=== PATIENT | male | born 1945 | race Caucasian/White ===

== ENCOUNTER → 2019-11-11 09:25 | Outpatient (BNVA) | payer OTHER, SELFPAY | PROVIDERS: Family Provider Emergency Medicine Emergency Medical Services; PCP Family Medicine; Visit Provider Orthopaedic Surgery | DX: M25.562 Pain in left knee (principal); M17.0 Bilateral primary osteoarthritis of knee | CPT/HCPCS: 73560; 73565 ==

== ENCOUNTER 2019-12-02 02:10 | Inpatient (IN) | payer OTHER, MEDICARE, SELFPAY ==
[2019-12-02] VITALS (14 sets, daily range): BP systolic 169–216; BP diastolic 64–98; PULSE 52–88; RESP 16–18; TEMP 36.1–36.6; O2SAT 96–99; BMI 50.2
--- NOTE | 2019-12-02 02:22 | CTR_ITS ---
PROCEDURE INFORMATION: Exam: CT Abdomen And Pelvis Without Contrast Exam date and time: 12/02/2019 2:23 AM Age: 74 years old Clinical indication: Abdominal pain; Flank; Right; Prior surgery; Surgery type: Lt kidney removed, gastric sleeve; Patient HX: HX renal CA; Additional info: Flank/abdominal pain TECHNIQUE: Imaging protocol: Computed tomography of the abdomen and pelvis without contrast. Radiation optimization: All CT scans at this facility use at least one of these dose optimization techniques: automated exposure control; mA and/or kV adjustment per patient size (includes targeted exams where dose is matched to clinical indication); or iterative reconstruction. Total DLP: 1991.97 mGy-cm COMPARISON: CT abdomen pelvis wo con [id number] 03/28/2016 11:33 AM FINDINGS: Liver: Normal. No mass. Gallbladder and bile ducts: Normal. No calcified stones. No ductal dilation. Pancreas: Normal. No ductal dilation. Spleen: Normal. No splenomegaly. Adrenals: Normal. No mass. Kidneys and ureters: Status post right nephrectomy. Strandy opacities are seen in the left perinephric fascia possibly representing chronic scarring. However, active inflammation cannot be excluded. There is mild hydronephrosis and hydroureter seen on the left. There is a 1.8 mm calcifications seen at the level of the left ureterovesical junction compatible with a partially obstructing ureteral calculus. Stomach and bowel: There is a small hiatal hernia containing a small portion of the proximal stomach. The patient is status post a gastric sleeve procedure. Appendix: The appendix is not seen in today's examination. There are no inflammatory changes seen to suggest appendicitis. Intraperitoneal space: Unremarkable. No free air. No significant fluid collection. Vasculature: Calcifications are seen within the thoracic and abdominal aorta, iliac arteries and femoral arteries bilaterally and branches of the celiac and superior mesenteric arteries. Lymph nodes: Unremarkable. No enlarged lymph nodes. Bladder: Unremarkable as visualized. Reproductive: Unremarkable as visualized. Bones/joints: Unremarkable. No acute fracture. Soft tissues: Unremarkable. CT/CT kidney stone [id number] IMPRESSION: Partially obstructing 1.8 mm distal left ureteral calculus at the level of the ureterovesical junction. Probable inflammatory changes surrounding the left kidney. Radiation Dose CTDIVOL = (mGy): DLP = 1992.97 (mGy-cm)
--- NOTE | 2019-12-02 02:41 | ED_ITS ---
HPI - Abdominal Pain General: Chief Complaint: Abdominal Pain Stated Complaint: abd pain Time Seen by Provider: 12/02/19 02:20 History of Present Illness: HPI narrative: Tom is a nice 74-year-old male who comes in complaining of left flank pain. Patient states it feels similar to kidney stones he had in the past. Patient states he only has 1 kidney at this time. Pains been going on for most of the day but getting progressively worse. He denies any fevers or chills. He denies any nausea or vomiting. Associated Symptoms: Denies chills, coffee ground emesis, constipation, GI cramping, diarrhea, dysuria, fever(s), hematochezia, hematuria, hematemesis, melena, nausea, syncope and vomiting Review of Systems General: Reports: other (negative unless marked) Const: Denies: fever, chills, body aches, fatigue, malaise or diaphoresis Eyes: Denies: change in vision or blurry vision ENMT: Denies: throat pain, painful swallowing, hoarseness, ear pain, ear discharge, Change in hearing or nasal discharge Card: Denies: chest pain, palpitations, irregular heart rhythm, syncope, pre- syncope, shortness of breath on exertion or shortness of breath when lying down Resp: Denies: shortness of breath, productive cough, non-productive cough, wheezing, coughing up blood or chest congestion GI: Denies: abdominal pain, nausea, vomiting, vomiting blood, coffee grounds in vomit, diarrhea, constipation, cramping, blood in stool or black tarry stool : Reports: flank pain; Denies: difficulty urinating, painful urination, urinary frequency, urinary urgency, decreased urine ouput, urinary incontinence or blood in urine Musc: Denies: neck pain, back pain, extremity pain, extremity swelling, joint pain, joint swelling, joint warmth or joint stiffness Skin/Breast: Denies: rash, skin tenderness or yellow skin Neuro: Denies: headache, numbness in extremities, weakness in extremities, changes in sensation, lack of coordination, difficulty walking, dizziness, vertigo or confusion Endo: Denies: excessive thirst, tired all the time, cold intolerance, excessive sweating, flushing or hot flashes Tres/Lymph: Denies: easy bruising, easy bleeding, petechiae or enlarged lymph nodes All/Imm: Denies: hives, throat swelling, tongue swelling, facial swelling or acute wheezing PFSH ED PFSH: Medical History (Updated 12/02/19 @ 04:13 by Angie Mcdowell) Arteriosclerotic heart disease Colon polyps Degenerative arthritis of knee Diabetes mellitus Internal hemorrhoids Mixed hyperlipidemia Morbid obesity with body mass index (BMI) of 50.0 to 59.9 in adult Obesity Surgical History History of heart artery stent History of right nephrectomy Family History Father Myocardial infarction Social History Smoking and tobacco status: never smoked Alcohol intake: never Physical Exam Const: COMMON NORMALS: no apparent distress, oriented x3, no limitations, healthy appearing and well nourished EXAM LIMITATIONS: no altered mental status GENERAL APPEARANCE: cooperative, well kempt and well developed ORIENTATION/CONSCIOUSNESS: Yes awake HENMT: COMMON NORMALS: normocephalic, head/scalp atraumatic, hearing grossly normal bilaterally, external ears normal, EAC's normal, external nose normal and moist oral mucous membranes HEAD & SCALP: normal to inspection, normocephalic and atraumatic FACE & SINUS: normal facial exam and face symmetric NOSE: external nose normal and nares normal EXTERNAL EAR: Yes external ears normal EXTERNAL AUDITORY CANAL: EAC's normal MOUTH: oral and palatal mucosa normal and tongue normal Eye: COMMON NORMALS: PERRL, EOMs intact bilaterally, conjunctivae normal and no scleral icterus GENERAL EYE: normal appearance of both eyes and normal light reflex CONJUNCTIVA: Yes conjunctivae normal SCLERA: sclerae normal CORNEA: Yes corneas normal PUPIL: Yes PERRL DIRECT OPHTHALMOSCOPY: Yes normal light reflex Neck/C-Spine: COMMON NORMALS: full ROM, no lymphadenopathy, supple, no meningeal signs and no JVD GENERAL: Yes normal visual inspection and Yes trachea midline CERVICAL SPINE: Yes cervical ROM normal Chest: COMMONS NORMALS: inspection of chest normal and palpation of chest normal Resp: COMMON NORMALS: normal respiratory effort, no retractions, no use of accessory muscles and clear to auscultation bilaterally EFFORT & INSPECTION: Yes able to speak in complete sentences AUSCULTATION: clear to auscultation bilaterally Cardio: COMMON NORMALS: no JVD, regular rate, regular rhythm, S1 normal heart sound, S2 normal heart sound, no gallops, no clicks, no murmurs and no rub JUGULAR VENOUS DISTENTION: no JVD RATE: regular rate RHYTHM: regular rhythm HEART SOUNDS: S1 normal and S2 normal GI: COMMON NORMALS: soft to palpation, non-tender, no hepatosplenomegaly and no masses INSPECTION: Yes normal to inspection PALPATION: Yes soft and Yes no hepatosplenomegaly : COMMON NORMALS: Yes no CVA tenderness BLADDER/KIDNEY EXAM: Yes no CVA tenderness Back/Pelvis: COMMON NORMALS: no CVA tenderness, thoracic and lumbar spine normal to inspection, no thoracic nor lumbar tenderness and thoraco-lumbar ROM normal Extremity: COMMON NORMALS: normal to inspection, full ROM, normal capillary refill, no joint enlargement, no clubbing, cyanosis or edema and no calf tende rness Neuro: COMMON NORMALS: oriented x3, CN's II-XII intact bilaterally, moves all extremities, no focal motor deficits and no sensory deficits noted MENINGEAL SIGNS: Yes no meningeal signs Psych: COMMON NORMALS: mental status grossly normal, thought process normal, cooperative, affect normal, speech normal and activity/motor behavior normal APPEARANCE: Yes well kempt SPEECH: Yes normal speech THOUGHT PROCESS: normal thought process Skin: COMMON NORMALS: no rashes or lesions noted, skin turgor normal, no jaundice, no petechiae and no mottling GENERAL SKIN EXAM: no rashes or lesions noted and turgor normal Course Vital Signs: Vital signs: Vital Signs Temperature 96.9 F L 12/02/19 02:21 Pulse Rate 78 12/02/19 03:17 Respiratory Rate 18 12/02/19 03:47 Blood Pressure 189/83 12/02/19 03:17 Pulse Oximetry 98 12/02/19 03:47 MDM - Abdominal Pain MDM Narrative: Medical decision making narrative: The patient has only 1 kidney and his kidney function is gone from the creatinine of 1.7 to a creatinine of 2.5. He still having pain and his blood pressure is significantly elevated. I reviewed the case in full with Dr. Malone as the patient does have a 1.8 mm distal UVJ stone and inflammatory changes around his kidney. He states he would like the patient admitted to the hospitalist service with a consult for him. The case was reviewed with Dr. Solomon and he agrees to admission. Lab Data: Attestation: I reviewed the patient's lab results. Labs: Lab Results 12/02/19 12/02/19 12/02/19 Range/Units 02:40 02:40 03:39 WBC 9.1 (4.0-10.0) 10^3/ uL RBC 4.36 (4.1-5.3) 10^6/u L Hgb 12.4 (11.7-16.6) g/dL Hct 39.6 L (42.0-52.0) % MCV 90.8 (80-94) fL MCH 28.4 (28.0-34.0) pg MCHC 31.3 (30.0-36.0) g/dL RDW 13.2 (12.1-15.1) % Plt Count 162 (130-400) 10^3/c mm MPV 10.6 H (7.4-10.4) fL Neut % (Auto) 58.0 % Lymph % (Auto) 32.8 % [place] % (Auto) 6.2 % Eos % (Auto) 2.3 % Baso % (Auto) 0.3 % Neut # (Auto) 5.3 (1.8-7.7) 10^3/u L Lymph # (Auto) 3.0 (0.8-4.8) 10^3/u L [place] # (Auto) 0.6 (0.2-0.9) 10^3/u L Eos # (Auto) 0.2 (0.0-0.8) 10^3/u L Baso # (Auto) 0.0 (0.0-0.1) 10^3/u L Nucleated RBC % (a uto) 0 % Nucleated RBCs # 0.0 /100WBC Sodium 142 (136-145) mmol/L Potassium 4.9 (3.5-5.1) mmol/L Chloride 107 (98-107) mmol/L Carbon Dioxide 21 L (22-29) mmol/L Anion Gap 18.9 (5-19) BUN 38 H (8-23) mg/dL Creatinine 2.5 H (0.7-1.2) mg/dL Glucose 168 H (65-115) mg/dL Calculated Osmolal ity 295 (285-295) mOsm/k g Calcium 9.3 (8.5-10.5) mg/dL Total Bilirubin 0.3 (0.15-1.2) mg/dL AST 16 (0-40) U/L ALT 20 (0-41) U/L Alkaline Phosphata se 75 (40-130) IU/L Total Protein 7.2 (6.6-8.7) g/dL Albumin 4.0 (3.5-5.2) g/dL Globulin 3.2 (1.3-4.6) g/dL Lipase 65 H (13-60) U/L Urine Color Yellow (Yellow) Urine Appearance Clear (CLEAR) Urine pH 5 (5-7) Ur Specific Gravit y 1.015 (1.005-1.030) Urine Protein Neg (Negative) Urine Glucose (UA) Norm (Normal) Urine Ketones Negative (Negative) Urine Blood 3+ H (Negative) Urine Nitrate Negative (Negative) Urine Bilirubin Neg (NEGATIVE) Urine Urobilinogen Norm (Negative) mg/dL Ur Leukocyte [place] a[place] Negative (Negative) Urine RBC 25-40 H (0-2) /hpf Urine WBC Rare (0-5) /hpf Ur Squamous Epith Cells Rare (0-5) Urine Bacteria 1+ H (NONE) Imaging Data ^: CT Abd/Pel: Radiologist's impression: [place] [address] CT Scan Report Signed Patient: Tom Rob Unit #: [id number] : 1945 Age/Sex: 74 / M ADM Date: 12/02/19 Loc: ER Room/Bed: Attending Dr: Ordering Provider/Ordering MD: Angie Mcdowell DO Date of Service: 12/02/19 Procedure(s): CT kidney stone [id number] Accession Number(s): [id number] Report Number: [id number] PROCEDURE INFORMATION: Exam: CT Abdomen And Pelvis Without Contrast Exam date and time: 12/02/2019 2:23 AM Age: 74 years old Clinical indication: Abdominal pain; Flank; Right; Prior surgery; Surgery type: Lt kidney removed, gastric sleeve; Patient HX: HX renal CA; Additional info: Flank/abdominal pain TECHNIQUE: Imaging protocol: Computed tomography of the abdomen and pelvis without contrast. Radiation optimization: All CT scans at this facility use at least one of these dose optimization techniques: automated exposure control; mA and/or kV adjustment per patient size (includes targeted exams where dose is matched to clinical indication); or iterative reconstruction. Total DLP: 1992.97 mGy-cm COMPARISON: CT abdomen pelvis wo con [id number] 03/28/2016 11:33 AM FINDINGS: Liver: Normal. No mass. Gallbladder and bile ducts: Normal. No calcified stones. No ductal dilation. Pancreas: Normal. No ductal dilation. Spleen: Normal. No splenomegaly. Adrenals: Normal. No mass. Kidneys and ureters: Status post right nephrectomy. Strandy opacities are seen in the left perinephric fascia possibly representing chronic scarring. However, active inflammation cannot be excluded. There is mild hydronephrosis and hydroureter seen on the left. There is a 1.8 mm calcifications seen at the level of the left ureterovesical junction compatible with a partially obstructing ureteral calculus. Stomach and bowel: There is a small hiatal hernia containing a small portion of the proximal stomach. The patient is status post a gastric sleeve procedure. Appendix: The appendix is not seen in today's examination. There are no inflammatory changes seen to suggest appendicitis. Intraperitoneal space: Unremarkable. No free air. No significant fluid collection. Vasculature: Calcifications are seen within the thoracic and abdominal aorta, iliac arteries and femoral arteries bilaterally and branches of the celiac and superior mesenteric arteries. Lymph nodes: Unremarkable. No enlarged lymph nodes. Bladder: Unremarkable as visualized. Reproductive: Unremarkable as visualized. Bones/joints: Unremarkable. No acute fracture. Soft tissues: Unremarkable. CT/CT kidney stone [id number] IMPRESSION: Partially obstructing 1.8 mm distal left ureteral calculus at the level of the ureterovesical junction. Probable inflammatory changes surrounding the left kidney. Radiation Dose CTDIVOL = (mGy): DLP = 1991.97 (mGy-cm) Dictated By: hCas Jama MD Signed By: Chas Jama MD Signed Date/Time: 12/02/19317 DD/ 6 Discharge Plan Discharge Patient Disposition: Placed in Observation Clinical Impression: Calculus, ureteral, Acute on chronic renal failure, Intractable pain Condition: Stable Prescriptions: No Action amlodipine 5 mg tablet 5 mg PO DAILY Qty: 30 RF: 0 Referrals: Tom Fonseca Jr, MD [Primary Care Provider] - Sung Turner DO [Family Provider] - Coding Level of Care Code ED Retirement Administrator for Chg Fwd Exam Comprehensive
[2019-12-02 02:45] LABS: Basophils % 0.3 %; Eosinophils # 0.2 10^3/uL (0.0-0.8); Eosinophils % 2.3 %; Hematocrit 39.6 % (42.0-52.0); Hemoglobin 12.4 g/dL (11.7-16.6); Lymphocytes % 32.8 %; Mean Corpuscular HGB Conc 31.3 g/dL (30.0-36.0); Mean Corpuscular Hemoglobin 28.4 pg (28.0-34.0); Mean Corpuscular Volume 90.8 fL (80-94); Mean Platelet Volume 10.6 fL (7.4-10.4); Monocytes # 0.6 10^3/uL (0.2-0.9); Monocytes % 6.2 %; Neutrophils # 5.3 10^3/uL (1.8-7.7); Nucleated Red Blood Cells % 0 %; Platelet Count 162 10^3/cmm (130-400); Red Blood Count 4.36 10^6/uL (4.1-5.3); Red Cell Distribution Width 13.2 % (12.1-15.1); White Blood Count 9.1 10^3/uL (4.0-10.0)
[2019-12-02] MEDS: ondansetron 2 mg/ML SDV 2 mL 4 MG IVP (02:45)
[2019-12-02] MEDS: morphine 4 mg/mL SDV 1 mL IVP (02:46)
[2019-12-02] MEDS: sodium chloride 0.9% 1,000 ML 100 ML IV (02:48)
[2019-12-02 03:04] LABS: Alanine Aminotransferase 20 U/L (0-41); Alkaline Phosphatase 75 IU/L (40-130); Anion Gap 18.9 (5-19); Aspartate Amino Transferase 16 U/L (0-40); Blood Urea Nitrogen 38 mg/dL (8-23); Calcium 9.3 mg/dL (8.5-10.5); Carbon Dioxide 21 mmol/L (22-29); Chloride 107 mmol/L (98-107); Globulin 3.2 g/dL (1.3-4.6); Glucose 168 mg/dL (65-115); Lipase 65 U/L (13-60); Osmolality Calculated 295 mOsm/kg (285-295); Potassium 4.9 mmol/L (3.5-5.1); Sodium 142 mmol/L (136-145); Total Bilirubin 0.3 mg/dL (0.15-1.2); Total Protein 7.2 g/dL (6.6-8.7)
[2019-12-02] MEDS: labetalol 5 mg/mL SDV 20mL 10 MG IVP (03:46)
[2019-12-02] MEDS: HYDROmorphone 1 mg/mL INJ 1 mL IVP (03:47)
[2019-12-02 03:58] LABS: Add Urine Culture? Yes; Bacteria Urine 1+; Bilirubin Urine Neg (NEGATIVE); Blood Urine 3+ (Negative); Glucose Urine UA Norm (Normal); Ketones Urine Negative (Negative); Leukocyte Esterase Urine Negative (Negative); Nitrate Urine Negative (Negative); Protein Urine Neg (Negative); RBC Urine 25-40 /hpf (0-2); Specific Gravity, Urine 1.015 (1.005-1.030); Squamous Epithelial Cell Urine RARE (0-5); Urine Appearance Clear (CLEAR); Urine Color Yellow (Yellow); Urobilinogen Urine Norm (Negative); WBC Urine RARE /hpf (0-5); pH Urine 5 (5-7)
[2019-12-02] MEDS: cefTRIAXone 1,000 MG in sodium chloride 0.9% (plus) 50 ML 100 MG IV (04:39)
--- NOTE | 2019-12-02 05:06 | P.HP_ITS ---
Providers/Chief Complaint Admitting Physician: Theo Solomon MD Primary Care Provider: Tom Fonseca Jr, MD Chief Complaint: abd pain History of Present Illness Tom Rob is a 74 year old male who carries diagnosis of obstructive sleep apnea, morbid obesity, coronary disease, right nephrectomy due to renal cell cancer in 2016, came in after experiencing left-sided flank pain. Patient is stating that he was sitting in his couch watching television when he started experiencing left-sided flank pain, initially attributed his discomfort to muscle pain but this pain got worse in next few hours, it was radiating towards his groin area, he was able to void urine, he did not notice any blood. He did not notice any fever, Rigors, nausea, vomiting. No recent sick contacts or traveling. Most of his medications are managed by his , he is not sure about his baseline creatinine. Recently he finished prednisone course for gout of right great toe. Review of previous records shows his creatinine ranges between 1-1.7. When I examined the patient he was comfortable, he had recently received Dilaudid, he was more dynamically stable, systolic blood pressure around 180s, afebrile, no leukocytosis, I have started ceftriaxone because of possible urological intervention in the morning by Dr. Malone Review of Systems Const: Denies: fever or chills Eyes: Denies: change in vision ENMT: Denies: throat pain Card: Denies: chest pain Resp: Denies: shortness of breath GI: Reports: abdominal pain; Denies: nausea or vomiting : Reports: flank pain; Denies: difficulty urinating, painful urination, urinary hesitancy or blood in urine Musc: Denies: neck pain Skin/Breast: Denies: rash Neuro: Denies: headache Psych: Denies: anxiety Endo: Denies: excessive urination Tres/Lymph: Denies: easy bruising All/Imm: Denies: hives Medications/Allergies Home Medications Medication Instructions Recorded Confirmed Last Taken Type amlodipine 5 mg tablet 5 mg PO DAILY #30 tab 11/25/19 12/02/19 12/01/19 Rx Adult One Daily Multivitamin 1 tab PO DAILY 12/02/19 12/02/19 12/01/19 History Coreg 25 mg PO BID 12/02/19 12/02/19 12/01/19 History Fish Oil 1,000 mg PO DAILY 12/02/19 12/02/19 12/01/19 History Vitamin C 500 mg PO DAILY 12/02/19 12/02/19 12/01/19 History alendronate-vitamin D3 1 tab PO DAILY 12/02/19 12/02/19 12/01/19 History aspirin 81 mg PO BEDTIME 12/02/19 12/02/19 12/01/19 History atorvastatin 80 mg PO BEDTIME 12/02/19 12/02/19 12/01/19 History folic acid 800 mcg PO DAILY 12/02/19 12/02/19 12/01/19 History lisinopril 20 mg PO BEDTIME 12/02/19 12/02/19 12/01/19 History Allergies Allergy/AdvReac Type Severity Reaction Status Date / Time No Known Allergies Allergy Verified 11/11/19 10:00 PFSH Acute PFSH: Medical History Arteriosclerotic heart disease Colon polyps Degenerative arthritis of knee Diabetes mellitus Internal hemorrhoids Mixed hyperlipidemia Morbid obesity with body mass index (BMI) of 50.0 to 59.9 in adult Obesity Severe obstructive sleep apnea Surgical History H/O arthroscopic knee surgery History of abdominal surgery History of heart artery stent Coronary artery stent 1996 History of right nephrectomy History of renal cell cancer Nephrectomy in 2016 Family History Father Myocardial infarction Social History Smoking and tobacco status: never smoked Alcohol intake: never Substance/Drug Use: never Household members: family Housing: House Vitals/I&O/Wt Last Vital Signs Temp 96.9 F L 12/02/19 02:21 Pulse 72 12/02/19 04:59 Resp 18 12/02/19 04:59 BP 190/64 12/02/19 04:59 Pulse Ox 96 12/02/19 04:59 12/01/19 12/01/19 12/02/19 14:59 22:59 06:59 Intake Total 1000 / 1000 Balance 1000 / 1000 Weight last 48 hrs Weight 154.221 kg Physical Exam Narrative: EXAM NARRATIVE: Very pleasant male, morbid obese, Currently lying comfortable in his bed S1, S2 no tachycardia or heart failure Abdomen soft, nontender, nondistended visceral obesity, left-sided CVA tenderness positive Neurologically nonfocal exam, Skin does not show any sign ischemia gangrene ulcer Right great toe does not show any signs of inflammation or gout Appropriate mood and affect EOMI, PERRLA Data : 12/02/19 02:40 12/02/19 02:40 A&P Assessment and plan (1) Calculus, ureteral: Status: Acute (2) Acute on chronic renal failure: Status: Acute Qualifiers: Acute renal failure type: unspecified Chronic kidney disease stage: unspecified stage Qualified Code(s): N17.9 - Acute kidney failure, unspecified; N18.9 - Chronic kidney disease, unspecified (3) Intractable pain: Status: Acute (4) Morbid obesity with body mass index (BMI) of 50.0 to 59.9 in adult: Status: Acute Additional A&P Information Solitary kidney ureteral calculi 1.8 mm distal left ureteral calculi at the level of the UVJ Creatinine above baseline, his baseline creatinine ranges between 1-1.7 I would start ceftriaxone because of possible urological intervention in the morning by Dr. Faisal Branch is consulted and is notified by the ER physician Hold lisinopril, Dilaudid for analgesia Coronary disease Active signs of heart failure, remote history of stent placement, continue aspirin, statin, Coreg Hold fish oil and multivitamins Hypertensive urgency Hypotension likely secondary to CVA tenderness, will use amlodipine and Coreg for now, Obstructive sleep apnea CPAP with auto titration Full code DVT prophylaxis: SCDs because of urological intervention in the morning, readdress DVT prophylaxis after the intervention N.p.o. Attestations Medical Necessity Statement*: Anticipating stay in the hospital to cross more than 2 midnights because of solitary kidney and ureteral calculi, anticipating urological intervention Time Spent in Patient Care: 50 Coding Level of Care Code Acute Information Technology Architect for Chg Fwd Diagnoses Calculus, ureteral N20.1 Acute on chronic renal failure N17.9; N18.9 Acute renal failure type: unspecified Chronic kidney disease stage: unspecified stage Intractable pain R52 Morbid obesity with body mass index (BMI) of 50.0 to 59.9 in adult E66.01; Z6 8.43
--- NOTE | 2019-12-02 05:45 | P.CONIM_ITS ---
Providers/Reason For Consult Consulting Physican/Specialty*: Urology/[place] Reason for Consult*: Left distal ureteral stone causing obstruction Attending Physician: Theo Solomon MD Primary Care Provider: Tom Fonseca Jr, MD History of Present Illness History of Present Illness Tom Rob is a 74 year old male known to me from prior history of RIGHT renal mass consistent with renal cell carcinoma and ultimately undergoing right nephrectomy at [facility]. I saw him last in March 2016. Admitted this hospital stay after evaluation in the emergency department for left flank pain with discovery of a 1.6 mm left distal ureteral stone (it appears to be at the left ureteral orifice) with mild obstructive changes. Complicated by solitary left kidney. No severe hydronephrosis but his creatinine bumped up from his baseline of 1.7-2.5. Urinary tract infection. Admitted for further evaluation treatment. I personally reviewed his CT scan. Review of Systems Const: Denies: fever or chills Eyes: Denies: change in vision or blurry vision ENMT: Denies: throat pain Card: Denies: chest pain or palpitations Resp: Denies: shortness of breath or productive cough GI: Reports: abdominal pain; Denies: nausea or vomiting : Reports: flank pain, urinary frequency and urinary urgency; Denies: difficulty urinating, painful urination, urinary hesitancy or blood in urine Musc: Denies: neck pain Skin/Breast: Denies: rash Neuro: Denies: headache, confusion or seizure-like activity Psych: Denies: anxiety or depression Endo: Denies: excessive urination or excessive thirst Tres/Lymph: Denies: easy bruising All/Imm: Denies: hives Meds/Allergies Home Medications and Allergies Home Medications Medication Instructions Recorded Confirmed Last Taken Type amlodipine 5 mg tablet 5 mg PO DAILY #30 tab 11/25/19 12/02/19 12/01/19 Rx Adult One Daily Multivitamin 1 tab PO DAILY 12/02/19 12/02/19 12/01/19 History Coreg 25 mg PO BID 12/02/19 12/02/19 12/01/19 History Fish Oil 1,000 mg PO DAILY 12/02/19 12/02/19 12/01/19 History Vitamin C 500 mg PO DAILY 12/02/19 12/02/19 12/01/19 History alendronate-vitamin D3 1 tab PO DAILY 12/02/19 12/02/19 12/01/19 History aspirin 81 mg PO BEDTIME 12/02/19 12/02/19 12/01/19 History atorvastatin 80 mg PO BEDTIME 12/02/19 12/02/19 12/01/19 History folic acid 800 mcg PO DAILY 12/02/19 12/02/19 12/01/19 History lisinopril 20 mg PO BEDTIME 12/02/19 12/02/19 12/01/19 History Allergies Allergy/AdvReac Type Severity Reaction Status Date / Time No Known Allergies Allergy Verified 11/11/19 10:00 Current Medications Current Medications Generic Name Dose Route Start Last Admin Trade Name Freq PRN Reason Stop Dose Admin Sodium Chloride 1,000 mls @ 100 mls/hr 12/02/19 02:30 12/02/19 04:59 Sodium Chloride 0.9% IV Infused .Q10H RAÚL Infusion PFSH Acute PFSH: Medical History (Updated 12/02/19 @ 05:48 by Ion Sarabia MD) Arteriosclerotic heart disease Colon polyps Degenerative arthritis of knee Diabetes mellitus Gout History of renal cell carcinoma Internal hemorrhoids Mixed hyperlipidemia Morbid obesity with body mass index (BMI) of 50.0 to 59.9 in adult Obesity Severe obstructive sleep apnea Surgical History H/O arthroscopic knee surgery History of abdominal surgery History of heart artery stent Coronary artery stent 1996 History of right nephrectomy History of renal cell cancer Nephrectomy in 2016 Family History Father Myocardial infarction Social History Smoking and tobacco status: never smoked Alcohol intake: never Substance/Drug Use: never Household members: family Housing: House Vitals/I&O/Wt Last Vital Signs Temp 97.9 F 12/02/19 05:00 Pulse 58 L 12/02/19 05:00 Resp 18 12/02/19 05:00 BP 194/92 12/02/19 05:00 Pulse Ox 99 12/02/19 05:00 12/01/19 12/01/19 12/02/19 14:59 22:59 06:59 Intake Total 1000 / 1000 Balance 1000 / 1000 Weight last 48 hrs Weight 340 lb Physical Exam Const: COMMON NORMALS: no apparent distress, alert and well nourished GENERAL APPEARANCE: well kempt and well developed ORIENTATION/CONSCIOUSNESS: not confused HENMT: COMMON NORMALS: normocephalic and head/scalp atraumatic HEAD & SCALP: normocephalic and atraumatic Neck/C-Spine: COMMON NORMALS: full ROM Resp: COMMON NORMALS: normal respiratory effort EFFORT & INSPECTION: No labored and No actively coughing Neuro: SENSORIUM/ORIENTATION: Yes alert Psych: COMMON NORMALS: mental status grossly normal APPEARANCE: Yes grossly normal and Yes well kempt ATTITUDE: Yes calm and Yes engaged A&P Assessment and plan (1) Calculus, ureteral: 1.6 mm left UVJ obstructing stone with solitary kidney, baseline chronic kidney disease and a bump up in his creatinine from 1.7-2.5. No evidence of infection. Admitted due to risk of further renal deterioration because of the solitary kidney. Stone is likely to spontaneously pass given its location and size and the risks and benefits of surgical intervention versus short-term conservative management will be weighed. Initial plan: Fluids Strain all voids Symptomatic control He is not anuric so despite the bump in his creatinine he is still getting urine past the stone. With the high likelihood of passing the stone I think it is worth trying at least a short-term conservative management plan. I will check back on him later this afternoon after his creatinine is back. We will repeat the BMP around noon. Status: Acute (2) Acute on chronic renal failure: Status: Acute Qualifiers: Acute renal failure type: unspecified Chronic kidney disease stage: unspecified stage Qualified Code(s): N17.9 - Acute kidney failure, unspecified; N18.9 - Chronic kidney disease, unspecified Consult Attestations Medical Necessity Statement: Solitary kidney with obstructing stone. Needs close observation possibly surgical intervention. 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
[2019-12-02] MEDS: carvedilol 25 mg Tablet PO (09:03)
[2019-12-02] MEDS: amlodipine 5 mg Tablet PO (09:03)
--- NOTE | 2019-12-02 10:01 | PC.CHAP ---
Pastoral Care Encounter/Spiritual Assessment Type of Contact [] Declined manufacturing recruiter visit [] Patient/Family/Request visit [] Outpatient visit [] Follow-up visit [] Physician referral [] Code/Alert [x] Routine visit [] Staff referral [] Actively dying [] Patient sleeping [] Family support [] [] Out of room [] Palliative care [] [] Receiving care in room [] Pre-surgical visit [] Trauma [] Long length of stay [] ICU visit [] Other: Relational/Emotional Strength [] Patient feels connected with others/family/visitors/staff [] Distress [] Loneliness/isolation [] Abandonment Spirituality of Patient [] Person of Bela [] Attends Temple of their [place] [x] Believes in Prayer [] Reads Bible or Hinduism materials [] There are Spiritual issues to be addressed 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 [x] Prayer [] Active listening [] Non-anxious presence [] Spiritual/emotional support [] Crisis/trauma care [] Spiritual counseling [] Bereavement support [] Provided bereavement packet [] Provided Bible/devotional materials [] Provided toy/stuffed animal, coloring book to patient or family member [] Provided Communion [] Anointing/[place] [] Salvation [x] Completed spiritual assessment [] Other: Impact on Illness or Injury [] Angry [] Fearful [] Anxious [] Often cries [] Exhaustion [] Unable to work [] Unable to attend sabianist [] Unable to walk/stand [] Unable to read [] Unable to drive [] Unable to eat/drink [] Unable to sleep [] Unable to be with family [] Patient intubated [] Other: Summary Patient resting well Time spent with patient 10 min
[2019-12-02 12:22] LABS: Anion Gap 16.7 (5-19); Blood Urea Nitrogen 36 mg/dL (8-23); Calcium 9.1 mg/dL (8.5-10.5); Carbon Dioxide 23 mmol/L (22-29); Chloride 105 mmol/L (98-107); Glucose 155 mg/dL (65-115); Osmolality Calculated 291 mOsm/kg (285-295); Potassium 4.7 mmol/L (3.5-5.1); Sodium 140 mmol/L (136-145)
--- NOTE | 2019-12-02 15:57 | PM.DCS ---
Discharge Providers Date of Admission: 12/02/19 04:32 Date of Discharge: December 02, 2019 Attending Provider at Admission: Theo Solomon MD Attending Provider at Discharge: Norbert Padilla Primary Care Provider: Tom Fonseca Jr, MD Diagnoses at Discharge Discharge Diagnosis (1) Calculus, ureteral: Status: Acute (2) Acute on chronic renal failure: Status: Acute Qualifiers: Acute renal failure type: unspecified Chronic kidney disease stage: unspecified stage Qualified Code(s): N17.9 - Acute kidney failure, unspecified; N18.9 - Chronic kidney disease, unspecified Reason for Visit Reason for Visit: Reason For Visit: abd pain Hospital Course Discharge Summary: Admitted through the emergency department for refractory pain secondary to 1.6 mm left distal ureteral stone causing mild obstructive changes with slight bump in creatinine from baseline 1.7-2.5. Pain was aggressively managed with parenteral narcotics in the emergency department and that made a huge difference in his ability to tolerate this process. Patient was hydrated and his creatinine decreased in about 6 hours up to 2.3. He was making good urine output and having no significant pain. Thorough discussion regarding intervention for the stone versus trying to provide a short course of conservative therapy with high degree of confidence that he will pass the stone within that time. Reviewed anuria or significant oliguria as a sign that the stone was more obstructive over time and how to reach me over the weekend if there was any concerns or questions. For refractory pain or progressive obstruction with decreased urine output intervention would be indicated. Patient expressed good understanding. I spoke to his Irais who is a nurse. She expressed good understanding as well. Physical Exam Const: COMMON NORMALS: no apparent distress, alert and well nourished GENERAL APPEARANCE: well kempt and well developed ORIENTATION/CONSCIOUSNESS: not confused HENMT: COMMON NORMALS: normocephalic and head/scalp atraumatic HEAD & SCALP: normocephalic and atraumatic Resp: COMMON NORMALS: normal respiratory effort EFFORT & INSPECTION: No labored and No actively coughing Neuro: SENSORIUM/ORIENTATION: Yes alert Psych: COMMON NORMALS: mental status grossly normal APPEARANCE: Yes grossly normal and Yes well kempt ATTITUDE: Yes calm and Yes engaged Discharge Data Data Completed and Pending: Completed Studies During Hospitalization Category Date Time Status CT kidney stone [id number] Urgent Cat Scan 12/02/19 02:22 Completed Pending at discharge Category Date Time Status Basic Metabolic P tiff AM LABS Lab 12/03/19 04:00 Ordered Complete Blood Co unt w/Auto AM LABS Lab 12/03/19 04:00 Ordered Urine Culture Sta t Lab 12/02/19 03:39 Received Labs from last 24 hours 12/02/19 12/02/19 12/02/19 12:02 03:39 02:40 WBC RBC Hgb Hct MCV MCH MCHC RDW Plt Count MPV Neut % (Auto) Lymph % (Auto) [place] % (Auto) Eos % (Auto) Baso % (Auto) Neut # (Auto) Lymph # (Auto) [place] # (Auto) Eos # (Auto) Baso # (Auto) Nucleated RBC % (a uto) Nucleated RBCs # Sodium 140 142 Potassium 4.7 4.9 Chloride 105 107 Carbon Dioxide 23 21 L Anion Gap 16.7 18.9 BUN 36 H 38 H Creatinine 2.3 H 2.5 H Glucose 155 H 168 H Calculated Osmolal ity 291 295 Calcium 9.1 9.3 Total Bilirubin 0.3 AST 16 ALT 20 Alkaline Phosphata se 75 Total Protein 7.2 Albumin 4.0 Globulin 3.2 Lipase 65 H Urine Color Yellow Urine Appearance Clear Urine pH 5 Ur Specific Gravit y 1.015 Urine Protein Neg Urine Glucose (UA) Norm Urine Ketones Negative Urine Blood 3+ H Urine Nitrate Negative Urine Bilirubin Neg Urine Urobilinogen Norm Ur Leukocyte [place] Negative Urine RBC 25-40 H Urine WBC Rare Ur Squamous Epith Cells Rare Urine Bacteria 1+ H 12/02/19 02:40 WBC 9.1 RBC 4.36 Hgb 12.4 Hct 39.6 L MCV 90.8 MCH 28.4 MCHC 31.3 RDW 13.2 Plt Count 162 MPV 10.6 H Neut % (Auto) 58.0 Lymph % (Auto) 32.8 [place] % (Auto) 6.2 Eos % (Auto) 2.3 Baso % (Auto) 0.3 Neut # (Auto) 5.3 Lymph # (Auto) 3.0 [place] # (Auto) 0.6 Eos # (Auto) 0.2 Baso # (Auto) 0.0 Nucleated RBC % (a uto) 0 Nucleated RBCs # 0.0 Sodium Potassium Chloride Carbon Dioxide Anion Gap BUN Creatinine Glucose Calculated Osmolal ity Calcium Total Bilirubin AST ALT Alkaline Phosphata se Total Protein Albumin Globulin Lipase Urine Color Urine Appearance Urine pH Ur Specific Gravit y Urine Protein Urine Glucose (UA) Urine Ketones Urine Blood Urine Nitrate Urine Bilirubin Urine Urobilinogen Ur Leukocyte [place] Urine RBC Urine WBC Ur Squamous Epith Cells Urine Bacteria Vitals: Last Vital Signs Temp 97.5 F L 12/02/19 15:56 Pulse 64 12/02/19 15:56 Resp 18 12/02/19 15:56 BP 192/66 12/02/19 15:56 Pulse Ox 96 12/02/19 15:56 Discharge Plan Discharge Patient Disposition: Home, Self-Care Condition: Stable Prescriptions: [place] 5-325 mg tablet 1 tab PO Q8H PRN (Reason: stone pain) Qty: 10 RF: 0 Continued amlodipine 5 mg tablet 5 mg PO DAILY Qty: 30 RF: 0 Coreg 25 mg PO BID RF: 0 aspirin 81 mg PO BEDTIME RF: 0 atorvastatin 80 mg PO BEDTIME RF: 0 lisinopril 20 mg PO BEDTIME RF: 0 Adult One Daily Multivitamin 1 tab PO DAILY RF: 0 Fish Oil 1,000 mg PO DAILY RF: 0 alendronate-vitamin D3 1 tab PO DAILY RF: 0 folic acid 800 mcg PO DAILY RF: 0 Vitamin C 500 mg PO DAILY RF: 0 Discharge Orders: Discharge Order (Routine); Ordered 12/02/19 Ordered By: Ion Malone Referrals: Ion Malone MD [Physician] - (THURSDAY with BMP at [facility] first No KUB) Sung Turner DO [Family Provider] - Tom Fonseca Jr, MD [Primary Care Provider] - Discharge Diet: Usual diet Discharge Activity: Resume usual activity Activity Restrictions/Additional Instructions: Strain every void Drink a large volume of fluids to help push the stone out. Call if you have significant reduction in urine output despite drinking. Prescription sent to [facility] pharmacy for pain medicine as needed to keep you out of the emergency department. Call my office on Thursday morning at 730 to 8:00 to make arrangements for BMP and clinic visit. 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
--- NOTE | 2019-12-02 16:55 | PC.NURSE ---
D/C IV cath intact, bleeding controlled with 2x2 and coban.
--- NOTE | 2019-12-02 21:55 | PM.PN ---
Subjective Subjective: Interval history: Has not noticed passing the stone himself, however, he is feeling much better. Having no pain anymore, denies nausea, or any other discomfort. Vitals/I&O/Wt Last Vital Signs Temp 97.5 F L 12/02/19 16:54 Pulse 64 12/02/19 16:54 Resp 18 12/02/19 16:54 BP 192/66 12/02/19 16:54 Pulse Ox 96 12/02/19 16:54 12/02/19 12/02/19 12/02/19 06:59 14:59 22:59 Intake Total 1000 / 1000 358 / 358 480 / 838 Output Total 600 / 600 Balance 1000 / 1000 358 / 358 -120 / 238 Weight last 48 hrs Weight 154.221 kg Physical Exam Const: COMMON NORMALS: no apparent distress and oriented x3 OTHER: Pleasant and conversant gentleman. Sitting up in bed. HENMT: COMMON NORMALS: oropharynx normal Neck/C-Spine: COMMON NORMALS: no JVD Resp: COMMON NORMALS: normal respiratory effort and clear to auscultation bilaterally AUSCULTATION: clear to auscultation bilaterally Cardio: COMMON NORMALS: no JVD, regular rhythm, S1 normal heart sound, S2 normal heart sound and no murmurs RHYTHM: regular rhythm HEART SOUNDS: S1 normal and S2 normal GI: COMMON NORMALS: normal to inspection, nondistended, normoactive bowel sounds, soft to palpation and non-tender PALPATION: Yes soft Extremity: COMMON NORMALS: no joint enlargement and no pedal edema Neuro: COMMON NORMALS: oriented x3 and moves all extremities Skin: COMMON NORMALS: no rashes or lesions noted GENERAL SKIN EXAM: no rashes or lesions noted Data : 12/02/19 02:40 12/02/19 12:02 A&P Assessment and plan (1) Calculus, ureteral: He is feeling much better. Denies any pain, no nausea, or other discomfort. Creatinine is improving. He is passing urine with solitary kidney. Assessed by urology, and returning home today as he is doing much better, with outpatient follow-up. Status: Acute (2) Acute on chronic renal failure: Improving. Status: Acute Qualifiers: Acute renal failure type: unspecified Chronic kidney disease stage: unspecified stage Qualified Code(s): N17.9 - Acute kidney failure, unspecified; N18.9 - Chronic kidney disease, unspecified (3) Intractable pain: Resolved. Status: Acute (4) Morbid obesity with body mass index (BMI) of 50.0 to 59.9 in adult: Status: Acute Additional A&P Information Solitary kidney ureteral calculi Coronary disease Hypertensive urgency due to discomfort from nephrolithiasis. With improvement in his symptoms blood pressure should improve. Please continue to monitor, help help achieve control in follow-up in clinic. Obstructive sleep apnea CPAP with auto titration Attestations Medical Necessity Statement*: Returning home with outpatient follow-up. 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
[2019-12-09 10:36] LABS: Stone Source KIDNEY STONE
== END 2019-12-02 17:10 | disposition home or self-care (01) | DRG 694 ==
LOC: ER 04:13 → MEDSURG 05:00
PROVIDERS: Urology; Admitting Provider Internal Medicine; Emergency Provider Emergency Medicine; Family Provider Emergency Medicine Emergency Medical Services; PCP Family Medicine; Visit Provider Internal Medicine
DX: N20.1 Calculus of ureter (principal); N17.9 Acute kidney failure, unspecified; Z68.43 Body mass index [BMI] 50.0-59.9, adult; N18.9 Chronic kidney disease, unspecified; Z79.82 Long term (current) use of aspirin; E66.01 Morbid (severe) obesity due to excess calories; I25.10 Atherosclerotic heart disease of native coronary artery without angina pectoris; G47.33 Obstructive sleep apnea (adult) (pediatric); Z90.5 Acquired absence of kidney; Z85.528 Personal history of other malignant neoplasm of kidney; E78.2 Mixed hyperlipidemia; E11.22 Type 2 diabetes mellitus with diabetic chronic kidney disease; Z95.5 Presence of coronary angioplasty implant and graft
CPT/HCPCS: 12345; 36415; 74176; 80048; 80053; 81001; 82365; 83690; 85025; 87086; 96375; 99283; J0696; J1170; J2270; J2405; J3490; J7030

== ENCOUNTER 2021-10-29 06:00 | Outpatient (RCR) | payer OTHER, SELFPAY | END 2021-10-31 23:59 | disposition home or self-care (01) | LOC: SPT 06:00 | PROVIDERS: PCP Family Medicine; Referring Provider Emergency Medicine Emergency Medical Services; Visit Provider Emergency Medicine Emergency Medical Services | DX: M54.50 Low back pain, unspecified (principal) | CPT/HCPCS: 97161 ==

== ENCOUNTER 2021-11-01 06:00 | Outpatient (RCR) | payer OTHER, SELFPAY | END 2021-11-30 23:59 | disposition home or self-care (01) | LOC: SPT 06:00 | PROVIDERS: PCP Family Medicine; Referring Provider Emergency Medicine Emergency Medical Services; Visit Provider Emergency Medicine Emergency Medical Services | DX: M54.50 Low back pain, unspecified (principal) | CPT/HCPCS: 97110 ==

== ENCOUNTER → 2021-11-21 08:45 | Outpatient (BNVA) | payer OTHER, SELFPAY | PROVIDERS: PCP Family Medicine; Visit Provider Specialist | DX: M17.0 Bilateral primary osteoarthritis of knee (principal); Z71.89 Other specified counseling; Z87.891 Personal history of nicotine dependence | CPT/HCPCS: 20610; J7326 ==

== ENCOUNTER 2021-12-01 06:00 | Outpatient (RCR) | payer OTHER, SELFPAY | END 2021-12-03 23:59 | disposition home or self-care (01) | LOC: SPT 06:00 | PROVIDERS: PCP Family Medicine; Referring Provider Emergency Medicine Emergency Medical Services; Visit Provider Emergency Medicine Emergency Medical Services | DX: M54.50 Low back pain, unspecified (principal) | CPT/HCPCS: 97110 ==

== ENCOUNTER 2021-12-26 11:01 | Outpatient (CLI) | payer OTHER, SELFPAY ==
--- NOTE | 2021-12-26 11:13 | MR_ITS ---
WS: [id number] MRI LUMBAR SPINE NONCONTRAST TECHNIQUE: Sagittal T1, T2 and STIR imaging. Axial T1 and T2 imaging. CLINICAL INFORMATION: CHRONIC LOW BACK PAIN COMPARISON: None. FINDINGS: Mild lumbar curve. No acute compression. Mild disc bulging L3-L4 and L4-L5. L1-L2: Mild facet arthropathy. Spinal canal and foramen are patent. L2-L3: Mild annular bulging. Slight narrowing of the subarticular recess bilaterally. Moderate facet arthropathy. Spinal canal and foramen are patent. L3-L4: Mild annular bulging. Moderate facet arthropathy ligamentum flavum hypertrophy. Impingement on the RIGHT greater than LEFT subarticular recess. Bilateral foraminal protrusions with mild RIGHT gre ater than LEFT foraminal narrowing. Tiny intraligamentous synovial cyst at L3-L4 on the LEFT contribu terry to central canal stenosis measuring 6 mm. L4-L5: Mild disc bulging and osteophytic ridging. Moderate to severe central canal stenosis. Moderate facet arthropathy with ligamentum flavum hypertrophy. Mild LEFT foraminal narrowing. RIGHT foramen i s patent. L5-S1: Mild disc bulging and osteophytic ridging. Tiny shallow central protrusion. Spinal canal is pa tent. Mild to moderate facet arthropathy. Mild LEFT foraminal narrowing. Visualized pelvic bony structures: Normal. Paravertebral soft tissues: Normal. MR/MR lumbar spine wo con* [id number] IMPRESSION: 1. Mild lumbar curve. No acute compression. 2. Moderate central canal stenosis L3-L4 and moderate to severe L4-L5 due to d isc bulging with facet arthropathy and ligamentum flavum hypertrophy. 3. Moderate facet arthropathy L3-L4 L4-L5 and L5-S1. 4. Mild foraminal narrowing more prominent at RIGHT L3-L4, LEFT L4-L5, and LEF T L5-S1. 5. Tiny intraligamentous synovial cyst at L3-L4 on the LEFT contributes to nuno tral canal stenosis measuring 6 mm.
== END 2021-12-26 11:02 | disposition home or self-care (01) ==
LOC: RAD 11:07
PROVIDERS: PCP Family Medicine; Visit Provider Emergency Medicine Emergency Medical Services
DX: M54.59 Other low back pain (principal); M48.00 Spinal stenosis, site unspecified
CPT/HCPCS: 72148

== ENCOUNTER → 2022-01-09 14:41 | Outpatient (BNVA) | payer OTHER, SELFPAY | PROVIDERS: PCP Family Medicine; Referring Provider Emergency Medicine Emergency Medical Services; Visit Provider Orthopaedic Surgery | DX: M48.062 Spinal stenosis, lumbar region with neurogenic claudication | CPT/HCPCS: 72100; 99204; 99214 ==

== ENCOUNTER → 2022-01-30 09:29 | Outpatient (BNVA) | payer OTHER, SELFPAY | PROVIDERS: PCP Family Medicine; Visit Provider Anesthesiology Pain Medicine | DX: M48.062 Spinal stenosis, lumbar region with neurogenic claudication (principal); M79.605 Pain in left leg; M79.604 Pain in right leg; Z87.891 Personal history of nicotine dependence | CPT/HCPCS: 99205 ==

== ENCOUNTER → 2022-02-19 15:03 | Outpatient (BNVA) | payer OTHER, SELFPAY | PROVIDERS: PCP Family Medicine; Visit Provider Anesthesiology Pain Medicine | DX: M54.16 Radiculopathy, lumbar region (principal); M48.062 Spinal stenosis, lumbar region with neurogenic claudication; Z87.891 Personal history of nicotine dependence | CPT/HCPCS: 64483; 64484; J1100; J3490 ==

== ENCOUNTER → 2022-02-27 09:13 | Outpatient (BNVA) | payer OTHER, SELFPAY | PROVIDERS: PCP Family Medicine; Visit Provider Specialist | DX: M17.0 Bilateral primary osteoarthritis of knee (principal); Z71.89 Other specified counseling | CPT/HCPCS: 20610; J7326 ==

== ENCOUNTER → 2022-04-02 10:18 | Outpatient (BNVA) | payer OTHER, SELFPAY | PROVIDERS: PCP Family Medicine; Visit Provider Anesthesiology Pain Medicine | DX: M79.604 Pain in right leg (principal); M79.605 Pain in left leg; Z87.891 Personal history of nicotine dependence; M48.062 Spinal stenosis, lumbar region with neurogenic claudication | CPT/HCPCS: 99214 ==

== ENCOUNTER → 2022-04-22 13:46 | Outpatient (BNVA) | payer OTHER, SELFPAY | PROVIDERS: PCP Family Medicine; Visit Provider Anesthesiology Pain Medicine | DX: M54.16 Radiculopathy, lumbar region (principal); M48.062 Spinal stenosis, lumbar region with neurogenic claudication; E11.9 Type 2 diabetes mellitus without complications; Z87.891 Personal history of nicotine dependence | CPT/HCPCS: 36416; 64483; 64484; 82962; J1100; J3490 ==

== ENCOUNTER → 2022-05-06 10:32 | Outpatient (BNVA) | payer OTHER, SELFPAY | PROVIDERS: PCP Family Medicine; Visit Provider Anesthesiology Pain Medicine | DX: M48.062 Spinal stenosis, lumbar region with neurogenic claudication (principal); M79.604 Pain in right leg; M79.605 Pain in left leg; Z87.891 Personal history of nicotine dependence | CPT/HCPCS: 99213 ==

== ENCOUNTER → 2022-05-22 10:43 | Outpatient (BNVA) | payer OTHER, SELFPAY | PROVIDERS: PCP Family Medicine; Visit Provider Specialist | DX: M17.0 Bilateral primary osteoarthritis of knee (principal) | CPT/HCPCS: 20610; J1100; J2795; J3301 ==

== ENCOUNTER → 2022-08-05 10:44 | Outpatient (BNVA) | payer OTHER, SELFPAY | PROVIDERS: PCP Family Medicine; Visit Provider Anesthesiology Pain Medicine | DX: M48.062 Spinal stenosis, lumbar region with neurogenic claudication (principal) | CPT/HCPCS: 99214 ==

== ENCOUNTER → 2022-08-25 14:38 | Outpatient (BNVA) | payer OTHER, SELFPAY | PROVIDERS: PCP Family Medicine; Visit Provider Anesthesiology Pain Medicine | DX: M48.062 Spinal stenosis, lumbar region with neurogenic claudication (principal); M47.816 Spondylosis without myelopathy or radiculopathy, lumbar region | CPT/HCPCS: 64493; 64494; 64495; J3490 ==

== ENCOUNTER → 2022-09-09 10:28 | Outpatient (BNVA) | payer OTHER, SELFPAY | PROVIDERS: PCP Family Medicine; Visit Provider Anesthesiology Pain Medicine | DX: M48.062 Spinal stenosis, lumbar region with neurogenic claudication (principal); M79.604 Pain in right leg; M79.605 Pain in left leg | CPT/HCPCS: 99214 ==

== ENCOUNTER → 2022-09-18 09:45 | Outpatient (BNVA) | payer OTHER, SELFPAY | PROVIDERS: PCP Family Medicine; Visit Provider Specialist | DX: M17.0 Bilateral primary osteoarthritis of knee (principal); Z71.89 Other specified counseling | CPT/HCPCS: 20610; J1100; J2795; J3301 ==

== ENCOUNTER → 2022-09-25 14:18 | Outpatient (BNVA) | payer OTHER, SELFPAY | PROVIDERS: PCP Family Medicine; Visit Provider Anesthesiology Pain Medicine | DX: M54.16 Radiculopathy, lumbar region (principal); M48.062 Spinal stenosis, lumbar region with neurogenic claudication | CPT/HCPCS: 64635; 64636; J1030 ==

== ENCOUNTER → 2022-10-07 10:26 | Outpatient (BNVA) | payer OTHER, SELFPAY | PROVIDERS: PCP Family Medicine; Visit Provider Anesthesiology Pain Medicine | DX: M48.062 Spinal stenosis, lumbar region with neurogenic claudication (principal); M79.605 Pain in left leg; M79.604 Pain in right leg | CPT/HCPCS: 99214 ==

== ENCOUNTER → 2022-10-28 14:16 | Outpatient (BNVA) | payer OTHER, SELFPAY | PROVIDERS: PCP Family Medicine; Visit Provider Anesthesiology Pain Medicine | DX: M47.816 Spondylosis without myelopathy or radiculopathy, lumbar region (principal); M48.062 Spinal stenosis, lumbar region with neurogenic claudication | CPT/HCPCS: 64493; 64494; 64495; J3490 ==

== ENCOUNTER → 2022-11-12 10:00 | Outpatient (BNVA) | payer OTHER, SELFPAY | PROVIDERS: PCP Family Medicine; Visit Provider Anesthesiology Pain Medicine | DX: M48.062 Spinal stenosis, lumbar region with neurogenic claudication (principal); M79.605 Pain in left leg; M79.604 Pain in right leg | CPT/HCPCS: 99214 ==

== ENCOUNTER → 2022-12-01 14:37 | Outpatient (BNVA) | payer OTHER, SELFPAY | PROVIDERS: PCP Family Medicine; Visit Provider Anesthesiology Pain Medicine | DX: M47.816 Spondylosis without myelopathy or radiculopathy, lumbar region (principal); M48.062 Spinal stenosis, lumbar region with neurogenic claudication | CPT/HCPCS: 64635; 64636; J1030 ==

== ENCOUNTER → 2022-12-25 10:51 | Outpatient (BNVA) | payer OTHER, SELFPAY | PROVIDERS: PCP Family Medicine; Visit Provider Specialist | DX: M17.0 Bilateral primary osteoarthritis of knee (principal); Z71.89 Other specified counseling | CPT/HCPCS: 20610; J7326 ==

== ENCOUNTER → 2022-12-30 10:54 | Outpatient (BNVA) | payer OTHER, SELFPAY | PROVIDERS: PCP Family Medicine; Visit Provider Anesthesiology Pain Medicine | DX: M48.062 Spinal stenosis, lumbar region with neurogenic claudication (principal) | CPT/HCPCS: 99213; 99214 ==

== ENCOUNTER → 2023-03-31 11:10 | Outpatient (BNVA) | payer OTHER, SELFPAY | PROVIDERS: PCP Family Medicine; Visit Provider Specialist | DX: M17.0 Bilateral primary osteoarthritis of knee (principal); Z71.89 Other specified counseling | CPT/HCPCS: 20610; J7326 ==

== ENCOUNTER → 2023-05-19 09:54 | Outpatient (BNVA) | payer OTHER, SELFPAY | PROVIDERS: PCP Family Medicine; Visit Provider Anesthesiology Pain Medicine | DX: M48.062 Spinal stenosis, lumbar region with neurogenic claudication (principal) | CPT/HCPCS: 99214 ==

== ENCOUNTER → 2023-07-01 13:15 | Outpatient (BNVA) | payer OTHER, SELFPAY | PROVIDERS: PCP Family Medicine; Visit Provider Specialist | DX: M17.0 Bilateral primary osteoarthritis of knee (principal) | CPT/HCPCS: 20610; J1100; J2795; J3301 ==

== ENCOUNTER → 2023-08-19 10:30 | Outpatient (BNVA) | payer OTHER, SELFPAY | PROVIDERS: PCP Emergency Medicine Emergency Medical Services; Visit Provider Anesthesiology Pain Medicine | DX: M48.062 Spinal stenosis, lumbar region with neurogenic claudication (principal); M47.816 Spondylosis without myelopathy or radiculopathy, lumbar region; M47.817 Spondylosis without myelopathy or radiculopathy, lumbosacral region; M48.07 Spinal stenosis, lumbosacral region | CPT/HCPCS: 99214 ==

== ENCOUNTER → 2023-09-29 10:31 | Outpatient (BNVA) | payer OTHER, SELFPAY | PROVIDERS: PCP Emergency Medicine Emergency Medical Services; Referring Provider Emergency Medicine Emergency Medical Services; Visit Provider Surgery | DX: Z12.11 Encounter for screening for malignant neoplasm of colon (principal); Z86.010 Personal history of colon polyps; Z79.899 Other long term (current) drug therapy; K64.8 Other hemorrhoids | CPT/HCPCS: 99204 ==

== ENCOUNTER → 2023-10-30 09:25 | Outpatient (BNVA) | payer OTHER, SELFPAY | PROVIDERS: PCP Emergency Medicine Emergency Medical Services; Visit Provider Specialist | DX: M17.0 Bilateral primary osteoarthritis of knee (principal) | CPT/HCPCS: 20610; J7326 ==

== ENCOUNTER 2023-12-31 05:56 | Day surgery (SDC) | payer OTHER, SELFPAY ==
[2023-12-31 06:23] VITALS: BP 107/64; PULSE 82; RESP 18; TEMP 36.3; O2SAT 97; BMI 45.8
[2023-12-31] MEDS: sodium chloride 0.9% 1,000 ML 30 ML IV (06:29)
[2023-12-31 06:33] LABS: Glucose Point of Care 103 mg/dL (70-110)
--- NOTE | 2023-12-31 06:56 | W.PM.OPSFHP ---
Same Day Surgery H&P Indication for Procedure/HPI DATE OF PROCEDURE: December 31, 2023 CHIEF COMPLAINT/INDICATIONFOR SURGICAL PROCEDURE: need for screening colonoscopy PREOP DIAGNOSIS: need for screening colonoscopy PLANNED PROCEDURE: Operation Date: 12/31/23 07:00 Proposed Procedures p [id number] colon G0121 screen colon A risk Z12.11(Not Applicable) - Azar Luis MD Medications/Allergies* Home Medications Medication Instructions Recorded Confirmed Type ascorbic acid (vitamin C) 500 mg 500 mg PO DAILY ##0 12/02/19 12/31/23 History tablet (Vitamin C) aspirin 81 mg tablet 81 mg PO DAILY ##0 12/02/19 12/29/23 History atorvastatin 80 mg tablet 80 mg PO QPM ##0 12/02/19 12/31/23 History carvedilol 25 mg tablet (Coreg) 25 mg PO BID ##0 12/02/19 12/31/23 History lisinopril 20 mg tablet 20 mg PO BEDTIME ##0 12/02/19 12/31/23 History multivitamin with minerals-folic 1 tab PO DAILY ##0 12/02/19 12/31/23 History acid 0.4 mg tablet acetaminophen 500 mg tablet 500 mg PO Q6H PRN Pain 01/30/22 12/31/23 History (Tylenol Extra Strength) magnesium hydroxide 400 mg/5 mL 15 ml PO DAILY PRN Indigestion 01/30/22 12/29/23 History oral suspension (Milk of Magnesia) turmeric 100 mg-gunner 150 1 cap PO BID 04/02/22 12/31/23 History mg-olive 50 mg-oreg 150 mg-capryl capsule zinc acetate 50 mg (zinc) capsule 50 mg PO DAILY 04/02/22 12/31/23 History semaglutide 1 mg/dose (2 mg/1.5 1 mg SUBCUT .WKLY 09/09/22 12/31/23 History mL) subcutaneous pen injector (Ozempic) empagliflozin 25 mg tablet 25 mg PO DAILY 07/01/23 12/31/23 History (Jardiance) cholecalciferol (vitamin D3) 50 50 mcg PO DAILY 12/31/23 12/31/23 History mcg (2,000 unit) capsule (Vitamin D3) omega-3 fatty acids-vitamin E 1 cap PO TID 12/31/23 12/31/23 History 1,000 mg capsule Allergies/Adverse Reactions Allergy/AdvReac Type Severity Reaction Status Date / Time No Known Allergies Allergy Verified 10/30/23 08:09 Current Medications: Generic Name Dose Route Start Last Admin Trade Name Eze PRN Reason Stop Dose Admin Sodium Chloride 1,000 mls @ 30 mls/hr 12/31/23 06:15 12/31/23 06:29 Sodium Chloride 0.9% IV 01/01/24 06:14 30 mls/hr .Q24H RAÚL Administration Pertinent History/Comorbid Conditions* Medical History (Updated 01/09/22 @ 15:49 by Siddharth Saeed DO) Benign essential HTN History of renal cell carcinoma Gout Severe obstructive sleep apnea Colon polyps Internal hemorrhoids Obesity Mixed hyperlipidemia Diabetes mellitus Arteriosclerotic heart disease Morbid obesity with body mass index (BMI) of 50.0 to 59.9 in adult Degenerative arthritis of knee Surgical History (Updated 12/02/19 @ 05:15 by Theo Solomon MD) H/O arthroscopic knee surgery History of abdominal surgery History of heart artery stent Coronary artery stent 1996 History of right nephrectomy History of renal cell cancer Nephrectomy in 2016 Family History (Updated 11/11/19 @ 10:05 by Sindhu Quinn LPN) Myocardial infarction Father Social History Smoking and tobacco/nicotine status: former use of tobacco/nicotine Second hand smoke exposure: No Alcohol intake: never Substance/Drug Use: never Household members: family Housing: House Pertinent Exam Findings alert, oriented x 3, clear to auscultation bilaterally and regular rate & rhythm Recommendations Surgery/Procedure today Coding Level of Care Code Acute Code for Chg Fwjoseph
--- NOTE | 2023-12-31 06:57 | ANES.PREANE2 ---
Pre-Anesthetic Assessment Height/Weight: Height 1.75 m Weight 140.614 kg Temp Pulse Resp BP Pulse Ox O2 Del Method 97.4 F L 82 18 107/64 97 Room Air 12/31/23 06:23 12/31/23 06:23 12/31/23 06:23 12/31/23 06:23 12/31/23 06:23 12/31/23 06:23 Preop Diagnosis: need for screening colonoscopy Operation Date: 12/31/23 07:00 [place] [id number] colon G0121 screen colon A risk Z12.11(Not Applicable) - Azar Luis MD Was Beta Kris taken within 24 hours: Yes Last intake: Intake Last Liquid Date 12/30/23 Last Liquid Time 23:30 Last Solid Date 12/29/23 Last Solid Time 18:00 Social No alcohol and No tobacco Exam alert, oriented x 3, clear to auscultation bilaterally and regular rate & rhythm Airway Submandibular: within normal limits Cervical ROM: within normal limits Mallampati: Class II Dentition: full History/ROS No significant history except as noted and No significant complaints Pulmonary Sleep Apnea CV/HEM Coronary Artery Disease and Hypertension None reported Hepatic None reported GI Gastroesophageal Reflux Disease Metabolic Diabetes Mellitus and Morbid Obesity Musc/skel Osteoarthritis/DJD Neuropsych None reported Anesthetic Plan ASA status: 3 Anesthesia: Anesthesia Evaluation and MAC Risk of > 500 ml blood loss (7ml/kg in children): No Medications/Allergies Home Medications Medication Instructions Recorded Confirmed Last Taken Type ascorbic acid (vitamin C) 500 mg 500 mg PO DAILY ##0 12/02/19 12/31/23 12/30/23 History tablet (Vitamin C) aspirin 81 mg tablet 81 mg PO DAILY ##0 12/02/19 12/29/23 12/28/23 History atorvastatin 80 mg tablet 80 mg PO QPM ##0 12/02/19 12/31/23 12/30/23 History carvedilol 25 mg tablet (Coreg) 25 mg PO BID ##0 12/02/19 12/31/23 12/30/23 History 2300 lisinopril 20 mg tablet 20 mg PO BEDTIME ##0 12/02/19 12/31/23 12/30/23 History multivitamin with minerals-folic 1 tab PO DAILY ##0 12/02/19 12/31/23 12/30/23 History acid 0.4 mg tablet amlodipine 10 mg tablet 10 mg PO DAILY #90 tabs 02/06/20 12/31/23 12/30/23 Rx acetaminophen 500 mg tablet 500 mg PO Q6H PRN Pain 01/30/22 12/31/23 12/30/23 History (Tylenol Extra Strength) magnesium hydroxide 400 mg/5 mL 15 ml PO DAILY PRN Indigestion 01/30/22 12/29/23 12/27/23 History oral suspension (Milk of Magnesia) turmeric 100 mg-gunner 150 1 cap PO BID 04/02/22 12/31/23 12/30/23 History mg-olive 50 mg-oreg 150 mg-capryl capsule zinc acetate 50 mg (zinc) capsule 50 mg PO DAILY 04/02/22 12/31/23 12/30/23 History gabapentin 300 mg capsule 300 mg PO TID pain #90 caps 05/08/22 12/31/23 12/30/23 Rx semaglutide 1 mg/dose (2 mg/1.5 1 mg SUBCUT .WKLY 09/09/22 12/31/23 12/24/23 History mL) subcutaneous pen injector (Ozempic) empagliflozin 25 mg tablet 25 mg PO DAILY 07/01/23 12/31/23 12/30/23 History (Jardiance) cholecalciferol (vitamin D3) 50 50 mcg PO DAILY 12/31/23 12/31/23 12/30/23 History mcg (2,000 unit) capsule (Vitamin D3) omega-3 fatty acids-vitamin E 1 cap PO TID 12/31/23 12/31/23 12/30/23 History 1,000 mg capsule Allergies Allergy/AdvReac Type Severity Reaction Status Date / Time No Known Allergies Allergy Verified 10/30/23 08:09 Current Medications Generic Name Dose Route Start Last Admin Trade Name Freq PRN Reason Stop Dose Admin Sodium Chloride 1,000 mls @ 30 mls/hr 12/31/23 06:15 12/31/23 06:29 Sodium Chloride 0.9% IV 01/01/24 06:14 30 mls/hr .Q24H RAÚL Administration PFSH Anesthesia Medical History Benign essential HTN History of renal cell carcinoma Gout Severe obstructive sleep apnea Colon polyps Internal hemorrhoids Obesity Mixed hyperlipidemia Diabetes mellitus Arteriosclerotic heart disease Morbid obesity with body mass index (BMI) of 50.0 to 59.9 in adult Degenerative arthritis of knee Surgical History H/O arthroscopic knee surgery History of abdominal surgery History of heart artery stent Coronary artery stent 1996 History of right nephrectomy History of renal cell cancer Nephrectomy in 2016 Family History Father Myocardial infarction Social History Smoking and tobacco/nicotine status: former use of tobacco/nicotine Second hand smoke exposure: No Alcohol intake: never Substance/Drug Use: never Household members: family Housing: House Data Anesthesia Cardiac Studies: No Data to Display
[2023-12-31 07:34] VITALS: BP 107/64; PULSE 67; RESP 20; TEMP 36.8; O2SAT 97
[2023-12-31 07:49] VITALS: BP 116/54; PULSE 62; RESP 18; O2SAT 96
--- NOTE | 2024-01-01 12:51 | ANE.PACU2 ---
Inpatient post-anesthesia follow up: Airway intact: Yes Vital signs: Temperature 98.3 F Pulse Rate 62 Respiratory Rate 18 Blood Pressure 116/54 Pulse Oximetry 96 Oxygen Delivery Me thod Room Air Oxygen Flow Rate Fraction of Inspir ed Oxygen Hydration adequate: Yes Nausea and vomiting: No Pain level: 1 Mental status: Baseline
== END 2023-12-31 08:22 | disposition home or self-care (01) ==
PROVIDERS: PCP Emergency Medicine Emergency Medical Services; Visit Provider Surgery
PROC: 0DJD8ZZ Inspection of Lower Intestinal Tract, Via Natural or Artificial Opening Endoscopic (ICD-10-PCS; CPT 45378; principal; 2023-12-31 07:00)
DX: Z12.11 Encounter for screening for malignant neoplasm of colon (principal); D12.3 Benign neoplasm of transverse colon; Z79.82 Long term (current) use of aspirin; I10 Essential (primary) hypertension; E66.9 Obesity, unspecified; Z68.42 Body mass index [BMI] 45.0-49.9, adult; E78.2 Mixed hyperlipidemia; E11.9 Type 2 diabetes mellitus without complications; I25.10 Atherosclerotic heart disease of native coronary artery without angina pectoris; Z95.5 Presence of coronary angioplasty implant and graft; Z87.891 Personal history of nicotine dependence; G47.30 Sleep apnea, unspecified
CPT/HCPCS: 36416; 45380; 45385; 82962; 88305; J2704; J7030

== ENCOUNTER → 2024-01-13 08:55 | Outpatient (BNVA) | payer OTHER, SELFPAY | PROVIDERS: PCP Emergency Medicine Emergency Medical Services; Visit Provider Surgery | DX: Z09 Encounter for follow-up examination after completed treatment for conditions other than malignant neoplasm (principal) | CPT/HCPCS: 99213 ==

== ENCOUNTER → 2024-02-02 14:05 | Outpatient (BNVA) | payer OTHER, SELFPAY | PROVIDERS: PCP Emergency Medicine Emergency Medical Services; Visit Provider Orthopaedic Surgery | DX: M48.062 Spinal stenosis, lumbar region with neurogenic claudication (principal); M54.9 Dorsalgia, unspecified | CPT/HCPCS: 72110; 99214 ==

== ENCOUNTER → 2024-02-12 08:59 | Outpatient (BNVA) | payer OTHER, SELFPAY | PROVIDERS: PCP Emergency Medicine Emergency Medical Services; Visit Provider Specialist | DX: M17.0 Bilateral primary osteoarthritis of knee; Z71.89 Other specified counseling | CPT/HCPCS: 20610; J1100; J2795; J3301 ==

== ENCOUNTER 2024-03-15 11:37 | Outpatient (CLI) | payer OTHER, SELFPAY ==
--- NOTE | 2024-03-15 11:45 | MR_ITS ---
WS: [id number] MRI LUMBAR SPINE NONCONTRAST HISTORY: Back Pain COMPARISON: None available. TECHNIQUE: Sagittal and axial multisequence imaging is submitted. Patient refused IV contrast. Normal lumbar alignment. Mild reactive marrow edema in the adjacent endplates of L3 and L4. No fractu re. Disc spaces and vertebral body heights are well-preserved. Conus terminates normally at L1-2 disc level. L1-L2: Mild facet arthritis. There is mild encroachment upon the subarticular recesses. RIGHT facet j oint osteophyte contacts and deforms the RIGHT lateral thecal sac. Mild central with RIGHT subarticul ar recess stenosis. Mild encroachment upon the traversing RIGHT L2 nerve root. L2-L3: Mild annular disc bulging with ligamentum flavum and facet arthritis. Mild facet encroachment upon the thecal sac. Mild narrowing of the subarticular recesses. L3-L4: Mild annular disc bulging with moderate facet arthritis. Additional ligamentum flavum arthropa thy. There is encroachment upon the central canal and the subarticular recesses. Severe central and b ilateral subarticular recess stenosis with mild foraminal stenosis. Reidentified is a well-circumscri bed LEFT ligamentous synovial cyst measuring 9 x 7 mm which is also encroaching upon the central juanis l. L4-L5: Diffuse annular disc bulging with osteophytic ridging. Small central disc protrusion. There is an additional LEFT foraminal disc protrusion. Mild ligamentum flavum and facet arthritis. Moderate t o severe central with bilateral subarticular recess and moderate foraminal stenosis. L5-S1: Mild annular disc bulging with osteophytic ridging. Tiny shallow central disc protrusion. Mild to moderate facet arthritis. Moderate LEFT and mild RIGHT foraminal stenosis. Liver is enlarged as seen on the localizer image extending over a length of 20.7 cm. MR/MR lumbar spine wo con* [id number] IMPRESSION: 1. Mild progression of degenerative disc and facet disease and stenoses since 12/26/2021. 2. L3-4: Severe central and bilateral subarticular recess stenosis with mild f oraminal stenosis. Reidentified is the LEFT ligamentous synovial cyst measuring 9 x 7 mm which is also contributing to central stenosis. Mild progression sinc e the prior study. 3. L4-5: Moderate to severe central with bilateral subarticular recess and mod erate foraminal stenosis. Small central and LEFT foraminal disc protrusions. 4. Moderate LEFT and mild RIGHT foraminal stenosis at L5-S1. 5. L1-2: Mild RIGHT subarticular recess stenosis.
== END 2024-03-15 11:38 | disposition home or self-care (01) ==
LOC: RAD 11:38
PROVIDERS: PCP Emergency Medicine Emergency Medical Services; Visit Provider Orthopaedic Surgery
DX: M47.896 Other spondylosis, lumbar region (principal); M51.36 Other intervertebral disc degeneration, lumbar region; M48.061 Spinal stenosis, lumbar region without neurogenic claudication; M24.28 Disorder of ligament, vertebrae; M51.37 Other intervertebral disc degeneration, lumbosacral region; M48.07 Spinal stenosis, lumbosacral region; M47.897 Other spondylosis, lumbosacral region
CPT/HCPCS: 72148

== ENCOUNTER → 2024-04-07 07:47 | Outpatient (BNVA) | payer OTHER, SELFPAY | PROVIDERS: PCP Emergency Medicine Emergency Medical Services; Visit Provider Orthopaedic Surgery | DX: Z09 Encounter for follow-up examination after completed treatment for conditions other than malignant neoplasm (principal) | CPT/HCPCS: 99214 ==

== ENCOUNTER → 2024-05-26 08:00 | Outpatient (BNVA) | payer OTHER, SELFPAY | PROVIDERS: PCP Emergency Medicine Emergency Medical Services; Visit Provider Orthopaedic Surgery | DX: Z09 Encounter for follow-up examination after completed treatment for conditions other than malignant neoplasm (principal) | CPT/HCPCS: 99214 ==

== ENCOUNTER → 2024-05-27 08:07 | Outpatient (BNVA) | payer OTHER, SELFPAY | PROVIDERS: PCP Emergency Medicine Emergency Medical Services; Visit Provider Specialist | DX: M17.0 Bilateral primary osteoarthritis of knee (principal); Z71.89 Other specified counseling | CPT/HCPCS: 20610; J7326 ==

== ENCOUNTER 2024-08-02 13:58 | Outpatient (CLI) | payer OTHER, SELFPAY ==
--- NOTE | 2024-08-02 14:07 | USR_ITS ---
PROCEDURE INFORMATION: Exam: US Retroperitoneal, Complete, Kidneys and Bladder Exam date and time: 08/02/2024 2:14 PM Age: 78 years old Clinical indication: Condition or disease; Cancer; Kidney, right; Additional info: HX of nephrectomy/malignant neoplasm of R kidney TECHNIQUE: Imaging protocol: Real-time ultrasound of the retroperitoneum with image documentation. Complete exam focused on the bilateral kidneys and urinary bladder. COMPARISON: CT kidney stone [id number] 12/02/2019 2:52 AM FINDINGS: Right kidney: Previous right nephrectomy. Images of the right renal fossa show no significant abnormality. Left kidney: Left kidney measures 12.2 x 6.4 x 6.2 cm with a renal cortical thickness of 1.2 cm. Left renal volume is 253.6 mL. No findings of hydronephrosis or obstruction. No renal cyst or mass is seen. No echogenic shadowing calcification or stone identified. Urinary bladder: Images of the visualized urinary bladder appear unremarkable. US/US renal BI* [id number] IMPRESSION: Previous right nephrectomy. Exam is otherwise negative.
== END 2024-08-02 13:59 | disposition home or self-care (01) ==
LOC: RAD 14:00
PROVIDERS: PCP Nurse Practitioner Family; Visit Provider Registered Nurse
DX: C64.1 Malignant neoplasm of right kidney, except renal pelvis (principal); Z90.5 Acquired absence of kidney
CPT/HCPCS: 76770

== ENCOUNTER → 2024-09-02 08:25 | Outpatient (BNVA) | payer OTHER, SELFPAY | PROVIDERS: PCP Nurse Practitioner Family; Visit Provider Specialist | DX: M17.0 Bilateral primary osteoarthritis of knee (principal); Z71.89 Other specified counseling | CPT/HCPCS: 20610; J1100; J2795; J3301 ==

== ENCOUNTER → 2024-12-30 10:08 | Outpatient (BNVA) | payer OTHER, SELFPAY | PROVIDERS: PCP Nurse Practitioner Family; Visit Provider Specialist | DX: M17.0 Bilateral primary osteoarthritis of knee (principal) | CPT/HCPCS: 20610; J7326 ==

== ENCOUNTER 2025-01-23 13:10 | Outpatient (CLI) | payer OTHER, SELFPAY ==
--- NOTE | 2025-01-23 13:17 | US_ITS ---
WS: [id number] RENAL ULTRASOUND HISTORY: STAGE 3B CHRONIC KIDNEY DZ/HX OF NEPHRECTOMY COMPARISON: 08/02/2024 TECHNIQUE: 2-D and color Doppler imaging of the kidney submitted. Right kidney: Status post RIGHT nephrectomy. No mass in the renal fossa. Left kidney: 11.4 cm x 5.0 cm x 4.6 cm. Cortex: 1.5 cm Limited evaluation of the LEFT kidney. Kidney is poorly visualized due to body habitus. No obstruction is evident. Mass would be difficult to exclude. Aorta: Normal. Urinary Bladder: Normal distention. US/US renal BI* [id number] IMPRESSION: 1. Status post RIGHT nephrectomy. 2. Poorly visualized LEFT kidney due to body habitus.
== END 2025-01-23 13:11 | disposition home or self-care (01) ==
PROVIDERS: PCP Nurse Practitioner Family; Visit Provider Registered Nurse
DX: N18.32 Chronic kidney disease, stage 3b (principal); Z90.5 Acquired absence of kidney
CPT/HCPCS: 76770

== ENCOUNTER → 2025-04-05 14:13 | Outpatient (BNVA) | payer OTHER, SELFPAY | PROVIDERS: PCP Nurse Practitioner Family; Visit Provider Specialist | DX: M17.0 Bilateral primary osteoarthritis of knee (principal) | CPT/HCPCS: 20610; J1100; J2795; J3301; J9999 ==

== ENCOUNTER 2025-04-13 16:32 | Emergency (ER) | payer OTHER, SELFPAY ==
[2025-04-13 16:36] VITALS: BP 156/75; PULSE 79; RESP 18; TEMP 36.8; O2SAT 97; BMI 41.8
--- OUTSIDE RECORDS SUMMARY | 2025-04-13 16:43 | XMS_ITS | Encounter Summary ---
Author Organization [facility] Address [address] [place] [address] Phone Care Team Providers Care Services Rep Name Role Phone Sherrie Broussard NP Primary Care Provider [phone] Encounter Details Date Type Department Care Team (Late st Contact Info) Description 10/21/2018 Orders Only [facility] [address] [place] [address] Abnormal result of kidney function study Social History Tobacco Use Types Packs/Day Years Used Date Smoking Tobacco: Never Assessed Sex and Gender Information Value Date Recorded Sex Assigned at Not on file Legal Sex Male 12:25 PM EDT Gender Identity Not on file Sexual Orientation Not on file documented as of this encounter Plan of Treatment Not on file documented as of this encounter Visit Diagnoses Diagnosis Abnormal result of kidney function study documented in this encounter Care Teams Services Rep Relationship Specialty Start Date End Date Sherrie Broussard NP [address] [facility] [place], [place] [id number] PCP - General Family Medicine 07/20/24 documented as of this encounter
--- OUTSIDE RECORDS SUMMARY | 2025-04-13 16:43 | XMS_ITS | Encounter Summary ---
Author Organization [facility] Address [address] [place] [address] Phone Care Team Providers Care Zookeeper Name Role Phone Sherrie Broussard NP Primary Care Provider [phone] Encounter Details Date Type Department Care Team (Late st Contact Info) Description 01/20/2019 Orders Only [facility] [address] [place] [address] Berto Adam MD [address] [place] [address] Chronic kidney disease, not otherwise specified Social History Tobacco Use Types Packs/Day Years Used Date Smoking Tobacco: Never Smokeless Tobacco: Never Alcohol Use Standard Drinks/Week Comments Never 0 (1 standard drink = 0.6 oz pur e alcohol) AUDIT-C Answer Date Recorded Frequency of Alcohol Consumption Never 01/06/2019 Average Number of Drinks Not on file 019 Frequency of Binge Drinking Not on file 01/2019 Sex and Gender Information Value Date Recorded Sex Assigned at Not on file Legal Sex Male 12:25 PM EDT Gender Identity Not on file Sexual Orientation Not on file documented as of this encounter Plan of Treatment Not on file documented as of this encounter Procedures Procedure Name Priority Date/Time Associated Diagnosis Comments RENAL FUNCTION PANEL Routine 01/31/2019 8:52 AM CDT Chronic kidney disease, not otherwise specified documented in this encounter Results * (ABNORMAL) RFP (01/31/2019 8:52 AM CDT) Albumin 3.7 3.5 - 5.0 g/dL [facility] BUN 35(A) 4 - 21 mg/dL [facility] Calcium 8.9 8.7 - 10.7 mg/dL [facility] Chloride 109(A) 99 - 108 [facility] Bicarbonate (CO2) 26 22 - 30 mmol/L [facility] Creatinine 1.77(A) 0.60 - 1.30 mg/dL [facility] eGFR Non- 38.0 mL/min/1.7 3m*2 [facility] Glucose 194 [facility] Phosphorus, Serum 2.7 [facility] Potassium 4.8 3.4 - 5.5 [facility] Sodium 139 137 - 147 [facility] Blood specimen (specimen) 01/31/2019 8:52 AM CDT Narrative [facility] - 02/01/2019 1:27 PM CDT As ordered Dante [facility] CLIA#[id number] [address] [place] [address] Berto Adam MD LAB BLOOD ORDERABLES nal Result Performing Organization Address [facility]/ZIP Co de Phone Number [facility] documented in this encounter Visit Diagnoses Diagnosis Chronic kidney disease, not otherwise specified documented in this encounter Care Teams Zookeeper Relationship Specialty Start Date End Date Sherrie Broussard NP [address] [facility] [place] [address] PCP - General Family Medicine 07/20/24 documented as of this encounter
--- OUTSIDE RECORDS SUMMARY | 2025-04-13 16:43 | XMS_ITS | Clinical Summary ---
Author Organization [facility] Address [address] [place] [address] Phone Care Team Providers Care Winding Rack Operator Name Role Phone Sherrie Broussard NP Primary Care Provider [phone] Allergies Active Allergy Reactions Criticality Noted Date Comments Ticlopidine 01/06/2019 Medications * This document contains information received from the source organization and may not represent a complete record from that organization. aspirin 81 MG tablet Take 81 mg by mouth 1 (one) time each day Active carvedilol (COREG) 25 MG tablet Take 25 mg by mouth 2 (two) times a day Active omega-3 (FISH OIL) 1000 MG capsule Take 1,000 mg by mouth in the morning and 1,000 mg in the evening. Active lisinopril (PRINIVIL,ZESTRI L) 20 MG tablet Take 20 mg by mouth 1 (one) time each day Active Multiple Vitamins-Mineral s (MULTIVITAMIN WITH MINERALS) tablet Take 1 tablet by mouth 1 (one) time each day Active cholecalciferol (VITAMIN D-3) 1000 units tablet Take 2,000 Units by mouth 1 (one) time each day Active acetaminophen (TYLENOL) 500 MG tablet Take 500 mg by mouth in the morning and 500 mg in the evening. Active Ascorbic Acid (VITAMIN C) 500 MG capsule Take 1 tablet by mouth 1 (one) time each day Active atorvastatin (LIPITOR) 80 MG tablet Take 80 mg by mouth 1 (one) time each day Active amLODIPine (NORVASC) 10 MG tablet Take 1 tablet (10 mg total) by mouth 1 (one) time each day 30 tablet 11 0 Active aluminum & magnesium hydroxide-simeth icone (MYLANTA) 200-200-20 MG/5ML oral suspension Take 15 mL by mouth 1 (one) time each day if needed for indigestion or heartburn Active Zinc 50 MG tablet Take by mouth 1 (one) time each day Active Empagliflozin (Jardiance) 10 MG tablet Take 10 mg by mouth 1 (one) time each day in the morning Active Turmeric 500 MG capsule Take 1 capsule by mouth in the morning and 1 capsule in the evening. Active Semaglutide, 1 MG/DOSE, 4 MG/3ML solution pen-injector Inject 1 mL under the skin per week 4 Active gabapentin (NEURONTIN) 100 MG capsule Take 100 mg by mouth 200 mg qam and 300 mg qhs Active sodium bicarbonate 650 MG tabletIndication s:Chronic metabolic acidosis Take 1 tablet (650 mg total) by mouth in the morning and 1 tablet (650 mg total) in the evening. 180 tablet 3 4 07/20/20 25 Active folic acid (FOLVITE) 1 MG tablet Take 1 mg by mouth 1 (one) time each day Active Active Problems Problem Noted Date Diagnosed Date Adult BMI 50 to 59.9 07/07/2022 Hypertension in chronic kidn ey disease due to type 2 diabetes mellitus 07/03/2022 Stage 3b chronic kidney disease 07/18/2020 Overview (08/06/2020): Update for Diagnosis Load Type 2 diabetes mellitus wit h diabetic chronic kidney disease 07/18/2020 Kidney cancer 07/18/2020 History of nephrectomy 07/18/2020 Overview (07/18/2020): Right in 05/2016 Resolved Problems Problem Noted Date Diagnosed Date Resolved Date Grade A3 albuminuria 07/18/2020 022 Essential (primary) hypertension 07/18/2020 07/03/2022 Dyslipidemia 07/18/2020 07/03/2022 Encounters Date Type Department Care Team Description 01/25/2025 Telephone [facility] [address] [place] [address] Bobbi Villa MD 01/24/2025 10:30 AM CDT Office Visit [facility] [address] [place] [address] Mecca Greenwood, ANT 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); Stage 3b chronic kidney disease (HCC); 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 (HCC); History of nephrectomy 01/24/2025 Documentation Only [facility], [facility] [address] [place] [id number] Camasse, Maryam 01/24/2025 Documentation Only [facility], [facility] [address] [place] [id number] Camasse, Maryam 01/24/2025 Documentation Only [facility], [facility] [address] [place] [address] Isabelle Duke MA 01/18/2025 Telephone [facility], [facility] [address] [place] [address] Cathi Kamara MA 01/12/2025 Telephone [facility], [facility] [address] [place] [address] Bobbi Villa MD from Last 3 Months Immunizations Immunization Administration Dates Next Due Influenza TIV (IM) 07/02/2022 Pneumococcal Conjugate 07/02/2022 Family History Medical History Relation Comments Heart disease Father Hypertension Father Diabetes Mother Relation Status Comments Father Mother Social History Tobacco Use Types Packs/Day Years Used Date Smoking Tobacco: Never Smokeless Tobacco: Never Tobacco Cessation:Counseling Given: Not Answered Alcohol Use Standard Drinks/Week Comments Never 0 [...] on file Sexual Orientation Not on file Last Filed Vital Signs Vital Sign Reading Time Taken Comments Blood Pressure 130/58 01/24/2025 10:32 AM CDT Pulse 60 01/24/2025 10:32 AM CDT Temperature 36.5 C (97.7 F) 01/11/2020 2:13 PM CDT Respiratory Rate - - Oxygen Saturation 97% 07/20/2024 10:36 AM DUMP ATTENDANT Inhaled Oxygen Concentration - - Weight 127 kg (281 lb) 01/24/2025 10:32 AM CDT Height 175.3 cm (5' 9 ) 01/24/2025 10:32 AM CDT Body Mass Index 41.5 01/24/2025 10:32 AM CDT Plan of Treatment Health Maintenance Due Date Last Done Comments Diabetes: Ophthalmology Exam 01/20/2019 Diabetes: Pedal Pulse Checked 01/20/2019 Diabetes: Sensory Foot Exam 01/20/2019 Diabetes: Visual Foot Exam 01/20/2019 Pneumococcal Vaccine: 50+ Years (3 of 3 - PCV20 or PCV21) 08/27/2022 07/02/2022, 07/02/2022, 05/26/2016, Additional history exists Diabetes: Hemoglobin A1C 09/30/2022 06/30/2022, 09/03 Influenza Vaccine (#1) 2025 , 07/02/2022, 05/17/2020, Additional history exists Pneumococcal Vaccine: Peds (0 to 5 Years) and At-Risk Patients (6 to 49 Years) Discontinued 07/02/2022, 07/02/2022, 05/26/2016, Additional history exists Hepatitis B Vaccine Aged Out No longe r eligible based on patient's age to complete this topic Procedures Procedure Name Priority Date/Time Associated Diagnosis Comments PTH, INTACT Routine 01/13/2025 8:28 AM CDT Stage 3b chronic kidney disease (HCC) URINE ALBUMIN / CREATININE RATIO Routine 01/13/2025 8:28 AM CDT Stage 3b chronic kidney disease (HCC) CBC Routine 01/13/2025 8:28 AM CDT Stage 3b chronic kidney disease (HCC) RENAL FUNCTION PANEL Routine 01/13/2025 8:28 AM CDT Stage 3b chronic kidney disease (HCC) HEMOGLOBIN A1C (EXTERNAL RESULT ENTRY) Routine 06/30/2022 from Last 3 Months or Most Recently Relevant to Health Maintenance Results * Urine albumin / creatinine ratio (01/13/2025 8:28 AM CDT) Pathologist [facility] Albumin, Urine 5.30 mg/dL PRINT /EXTERNAL (NON-INTERFACE D LABS) Creatinine, Urine Random 87.88 mg/dL PRINT/EXTERNAL (NON-INTERFACE D LABS) Alb/Creat Ratio, Ur 6.03 mg/g Creat PRINT/EXTERNAL (NON-INTERFACE D LABS) Urine 01/13/2025 8:28 AM CDT us Orquidea Dong NP LAB URINE ORDERABLES Marilyn irby Result PRINT/EXTERNAL (NON-INTERFACED LABS) * CBC (01/13/2025 8:28 AM CDT) Pathologist [facility] WBC 6.6 K/uL PRINT/EXTE RNAL (NON-INTERFACE D LABS) Red Blood Cell Count 3.95 PRINT/EXTERNAL (NON-INTERFACE D LABS) Hemoglobin 11.5 g/dL PRINT/EXT ERNAL (NON-INTERFACE D LABS) Hematocrit 35.1 % PRINT/EXT ERNAL (NON-INTERFACE D LABS) MCV 88.9 PRINT/EXTE RNAL (NON-INTERFACE D LABS) MCH 29.1 PRINT/EXTE RNAL (NON-INTERFACE D LABS) MCHC 32.8 PRINT/EXTE RNAL (NON-INTERFACE D LABS) RDW 13.4 PRINT/EXTE RNAL (NON-INTERFACE D LABS) Platelet Count 177 PRINT /EXTERNAL (NON-INTERFACE D LABS) MPV 10.6 PRINT/EXTE RNAL (NON-INTERFACE D LABS) Absolute Neutrophils 3.41 PRINT/EXTERNAL (NON-INTERFACE D LABS) Absolute Lymphocytes 2.39 PRINT/EXTERNAL (NON-INTERFACE D LABS) Absolute Monocytes 0.53 PRINT/EXTERNAL (NON-INTERFACE D LABS) Absolute Eosinophils 0.24 PRINT/EXTERNAL (NON-INTERFACE D LABS) Absolute Basophils 0.06 PRINT/EXTERNAL (NON-INTERFACE D LABS) Neutrophils 51.3 K/uL PRINT/EX TERNAL (NON-INTERFACE D LABS) Lymphocytes 36.0 PRINT/EX TERNAL (NON-INTERFACE D LABS) Monocytes 8.0 PRINT/EXTE RNAL (NON-INTERFACE D LABS) Eosinophils 3.6 PRINT/EX TERNAL (NON-INTERFACE D LABS) Basophils 0.9 PRINT/EXTE RNAL (NON-INTERFACE D LABS) Blood 01/13/2025 8:28 AM CDT Orquidea Dong NUMERICAL TOOL PROGRAMMER LAB BLOOD ORDERABLES Marilyn l Result Performing Organization Address [facility] de Phone Number PRINT/EXTERNAL (NON-INTERFACED LABS) * PTH, intact (01/13/2025 8:28 AM CDT) Parathyroid Hormone, Intact 81.5 pg/mL PRINT/TOBACCO WEIGHER AL (NON-INTERFACE D LABS) Blood 01/13/2025 8:28 AM CDT Orquidea Dong NUMERICAL TOOL PROGRAMMER LAB BLOOD ORDERABLES Marilyn l Result Performing Organization Address [facility] de Phone Number PRINT/EXTERNAL (NON-INTERFACED LABS) * Renal function panel (01/13/2025 8:28 AM CDT) Glucose 87 mg/dL PRINT/EXTE RNAL (NON-INTERFACE D LABS) BUN 19 mg/dL PRINT/EXTE RNAL (NON-INTERFACE D LABS) Creatinine 1.35 mg/dL PRINT/EXT ERNAL (NON-INTERFACE D LABS) Sodium 142 mEq/L PRINT/EXTE RNAL (NON-INTERFACE D LABS) Potassium 4.6 mEq/L PRINT/EXTE RNAL (NON-INTERFACE D LABS) Chloride 111 PRINT/EXTE RNAL (NON-INTERFACE D LABS) Carbon Dioxide 24 mmol/L PRINT /EXTERNAL (NON-INTERFACE D LABS) Calcium 8.5 mg/dL PRINT/EXTE RNAL (NON-INTERFACE D LABS) Phosphorus, Serum 3.3 mg/dL PRINT/EXTERNAL (NON-INTERFACE D LABS) Albumin (Blood) 3.7 g/dL PRIN T/EXTERNAL (NON-INTERFACE D LABS) eGFR Non-Afr Kenyan 54 PRINT/EXTERNAL (NON-INTERFACE D LABS) Blood 01/13/2025 8:28 AM CDT Orquidea Dong NUMERICAL TOOL PROGRAMMER LAB BLOOD ORDERABLES Marilyn irby Result PRINT/EXTERNAL (NON-INTERFACED LABS) * Hemoglobin A1C (06/30/2022) Hemoglobin A1C 7.7 Blood specimen (specimen) Venous blood / Unknown 06/30/2022 Narrative Aaliyah Walton MA - 06/30/2022 [place] us Aps External Provider LAB BLOOD ORDERABLES Final Result from Last 3 Months or Most Recently Relevant to Health Maintenance Insurance [employer] 1,2,3 (VACCN) Care Teams Winding Rack Operator Relationship Specialty Start Date End Date Sherrie Broussard NP [address] [place] [address] PCP - General Family Medicine 07/20/24
--- OUTSIDE RECORDS SUMMARY | 2025-04-13 16:43 | XMS_ITS | Encounter Summary ---
Author Organization [facility] Address [address] [place] [address] Phone Care Team Providers Care Sizing Sponger Name Role Phone Sherrie Broussard NP Primary Care Provider [phone] Encounter Details Date Type Department Care Team (Late st Contact Info) Description 07/08/2019 Orders Only [facility] [address] [place] [address] Berto Adam MD [address] [place] [address] Chronic kidney disease, not otherwise [...] as of this encounter Visit Diagnoses Diagnosis Chronic kidney disease, not otherwise specified documented in this encounter Care Teams Sizing Sponger Relationship Specialty Start Date End Date Sherrie Broussard NP [address] [facility] [place] [address] PCP - General Family Medicine 07/20/24 documented as of this encounter
--- NOTE | 2025-04-13 16:54 | W.ED.EXTPRO ---
HPI - Extremity Problem General: Chief complaint: Extremity Problem,Nontraumatic Stated complaint: L Knee Pain Time Seen by Provider: 04/13/25 16:34 History of Present Illness: 79-year-old man with a history of chronic knee pain who gets regular steroid injections at pain clinic, obesity, hypertension, hyperlipidemia, diabetes who presents emergency room with left lateral knee pain. Says he had shots a few days back into his knees and felt better for a few days and then it started hurting severely. He has some effusion on the left lateral part of the knee. First he denies any trauma but then he does remember that right before the injections he had fallen and injured that knee but then after the injections it did not hurt. Related Data Home Medications ?Medication ?Instructions ?Recorded ?Confirmed ascorbic acid (vitamin C) 500 mg 500 mg PO DAILY ##0 12/02/19 04/05/25 tablet (Vitamin C) aspirin 81 mg tablet 81 mg PO DAILY ##0 12/02/19 04/05/25 atorvastatin 80 mg tablet 80 mg PO QPM ##0 12/02/19 04/05/25 carvedilol 25 mg tablet (Coreg) 25 mg PO BID ##0 12/02/19 04/05/25 lisinopril 20 mg tablet 20 mg PO BEDTIME ##0 12/02/19 04/05/25 multivitamin with minerals-folic 1 tab PO DAILY ##0 12/02/19 04/05/25 acid 0.4 mg tablet acetaminophen 500 mg tablet 500 mg PO Q6H PRN Pain 01/30/22 04/05/25 (Tylenol Extra Strength) magnesium hydroxide 400 mg/5 mL 15 ml PO DAILY PRN Indigestion 01/30/22 04/05/25 oral suspension (Milk of Magnesia) turmeric 100 mg-gunner 150 1 cap PO BID 04/02/22 04/05/25 mg-olive 50 mg-oreg 150 mg-capryl capsule zinc acetate 50 mg (zinc) capsule 50 mg PO DAILY 04/02/22 04/05/25 semaglutide 1 mg/dose (2 mg/1.5 1 mg SUBCUT .WKLY 09/09/22 04/05/25 mL) subcutaneous pen injector (Ozempic) empagliflozin 25 mg tablet 25 mg PO DAILY 07/01/23 04/05/25 (Jardiance) cholecalciferol (vitamin D3) 50 50 mcg PO DAILY 12/31/23 04/05/25 mcg (2,000 unit) capsule (Vitamin D3) omega-3 fatty acids-vitamin E 1 cap PO TID 12/31/23 04/05/25 1,000 mg capsule Previous Rx's ?Medication ?Instructions ?Recorded amlodipine 10 mg tablet 10 mg PO DAILY #90 tabs 02/06/20 gabapentin 300 mg capsule 300 mg PO TID pain #90 caps 05/08/22 dexamethasone 6 mg tablet 6 mg PO DAILY 5 days #5 tabs 04/13/25 hydrocodone 5 mg-acetaminophen 325 1 tab PO Q6H PRN pain #20 tabs 04/13/25 mg tablet polyethylene glycol 3350 17 17 g PO DAILY #510 grams 04/13/25 gram/dose oral powder (Miralax) Allergies Allergy/AdvReac Type Severity Reaction Status Date / Time No Known Allergies Allergy Verified 12/30/24 08:41 Review of Systems Narrative: Constitutional symptoms: Negative except as documented in HPI. Skin symptoms: Negative except as documented in HPI. Eye symptoms: Negative except as documented in HPI. ENMT symptoms: Negative except as documented in HPI. Respiratory symptoms: Negative except as documented in HPI. Cardiovascular symptoms: Negative except as documented in HPI. Gastrointestinal symptoms: Negative except as documented in HPI. Genitourinary symptoms: Negative except as documented in HPI. Musculoskeletal symptoms: Negative except as documented in HPI. Neurologic symptoms: Negative except as documented in HPI. Psychiatric symptoms: Negative except as documented in HPI. Endocrine symptoms: Negative except as documented in HPI. PFSH ED PFSH: Medical History (Updated 04/13/25 @ 16:54 by Meagan Baker MD) Benign essential HTN History of renal cell carcinoma Gout Severe obstructive sleep apnea Colon polyps Internal hemorrhoids Obesity Mixed hyperlipidemia Diabetes mellitus Arteriosclerotic heart disease Morbid obesity with body mass index (BMI) of 50.0 to 59.9 in adult Degenerative arthritis of knee Surgical History H/O arthroscopic knee surgery History of abdominal surgery History of heart artery stent Coronary artery stent 1997 History of right nephrectomy History of renal cell cancer Nephrectomy in 2016 Family History Father Myocardial infarction Social History Smoking and tobacco/nicotine status: never used tobacco/nicotine Second hand smoke exposure: No Alcohol intake: never Substance/Drug Use: never Household members: family Housing: House Physical Exam Narrative: EXAM NARRATIVE: General: Alert, no acute distress. Skin: warm and dry Head: Normocephalic Neck: Trachea midline Eye: Extraocular movements are intact. Ears, nose, mouth and throat: Oral mucosa moist Respiratory: Respirations are non-labored Musculoskeletal: Limited range of motion secondary to pain. There is a lateral effusion. No redness. No calf pain or anything suggestive of a deep vein thrombosis. Gastrointestinal: Abdomen does not appear distended Neurological: Alert and oriented, No focal neurological deficit observed. Psychiatric: Cooperative, appropriate mood & affect. Course Vital Signs: Vital signs: Vital Signs Temperature 98.2 F 04/13/25 16:36 Pulse Rate 79 04/13/25 16:36 Respiratory Rate 18 04/13/25 16:36 Blood Pressure 156/75 04/13/25 16:36 Pulse Oximetry 97 04/13/25 16:36 Oxygen Delivery Me thod Room Air 04/13/25 16:36 MDM - Extremity (Nontraumatic) Medical Decision Making Medical decision making: Differential diagnosis including but not limited to and based on the above HPI, review of systems and physical exam: In this patient with a musculoskeletal extremity traumatic injury and x-ray is being ordered to rule out fractures and dislocations. Orders placed to evaluate differential diagnosis based on the above differential, HPI and physical exam X-ray of the left knee: Severe degenerative changes. Trace effusion. Vascular calcifications. No obvious fractures or dislocations. This was reviewed and interpreted by myself the emergency room physician. I also reviewed the radiology report. I reviewed the patient's medical record. Reexamination: Patient remained stable. No increased work of breathing. No altered mental status. No focal motor deficits Assessment and plan: Chronic knee pain with an acute exacerbation ?IM Decadron and p.o. Bernie in the emergency room - Discharged home - Discussed plan with patient. Answered any questions. - Evaluation and treatment of this problem were appropriate in the emergency setting. . Lab Data Radiology Impressions Knee X-Ray 04/13/25 17:02 IMPRESSION: 1. No acute osseous findings. 2. Tricompartmental degenerative changes. All radiology interpretation(s) finalized by discharge Discharge Plan Discharge Patient Disposition: Home Clinical Impression: Degenerative arthritis of knee, Knee pain, chronic, Acute knee pain Condition: Stable Prescriptions: New hydrocodone-acetaminophen 5-325 mg tablet 1 tab PO Q6H PRN (Reason: pain) Qty: 20 0RF dexamethasone 6 mg tablet 6 mg PO DAILY 5 Days Qty: 5 0RF polyethylene glycol 3350 [Miralax] 17 gram/dose powder 17 g PO DAILY Qty: 510 0RF Rx Instructions: Take 1 scoop daily while taking pain medications. No Action zinc acetate 50 mg (zinc) capsule 50 mg PO DAILY [id number]-insq-xpxxr-oreg-capry 100 mg-150 mg- 50 mg-150 mg capsule 1 cap PO BID magnesium hydroxide [Milk of Magnesia] 400 mg/5 mL suspension 15 ml PO DAILY PRN (Reason: Indigestion) acetaminophen [Tylenol Extra Strength] 500 mg tablet 500 mg PO Q6H PRN (Reason: Pain) Ozempic 1 mg/dose (2 mg/1.5 mL) pen injector 1 mg SUBCUT .WKLY Jardiance 25 mg tablet 25 mg PO DAILY amlodipine 10 mg tablet 10 mg PO DAILY Qty: 90 3RF gabapentin 300 mg capsule 300 mg PO TID Qty: 90 0RF atorvastatin 80 mg Tablet 80 mg PO QPM Qty: 0 carvedilol [Coreg] 25 mg Tablet 25 mg PO BID Qty: 0 Rx Instructions: must administer with a meal/food aspirin 81 mg Tablet 81 mg PO DAILY Qty: 0 lisinopril 20 mg Tablet 20 mg PO BEDTIME Qty: 0 multivit with min-folic acid 0.4 mg Tablet 1 tab PO DAILY Qty: 0 ascorbic acid (vitamin C) [Vitamin C] 500 mg Tablet 500 mg PO DAILY Qty: 0 Vitamin D3 50 mcg (2,000 unit) Capsule 50 mcg PO DAILY omega-3 fatty acids-vitamin E 1,000 mg Capsule 1 cap PO TID Discharge Orders: Discharge ED (Routine); Ordered 04/13/25 Ordered By: Meagan Baker Discharge Diet: Usual diet Discharge Activity: Increase activity as tolerated Patient Instructions: Opioid Safety, Pain Management, Patient Portal & Ankit Instructions Activity Restrictions/Additional Instructions: Thank you for choosing [facility] for your healthcare needs today. You have been screened and evaluated and felt safe for discharge. Health conditions do change or evolve sometimes and as such it is important that you follow up with your Primary Doctor to be re checked, 3-5 days is a general good time frame for follow up. You are always welcome to return to the ED for re assessment if your symptoms are worsening or you have new concerns Print Language: Dutch Coding Level of Care Code ED Boarding Specialist for Danitza Meyer
--- NOTE | 2025-04-13 17:02 | XRR_ITS ---
PROCEDURE INFORMATION: Exam: XR Left Knee Exam date and time: 04/13/2025 5:11 PM Age: 79 years old Clinical indication: Pain; Knee; Left TECHNIQUE: Imaging protocol: Radiologic exam of the left knee. Views: 3 views. COMPARISON: DX XR knee LT 3V* [id number] 08/01/2020 9:27 AM FINDINGS: Bones/joints: No acute fracture or dislocation. Tricompartmental degenerative changes most pronounced in the medial compartment with moderate to severe joint space narrowing and marginal osteophytes. Trace joint effusion. Soft tissues: Normal. Vasculature: Scattered vascular calcifications. XR/XR knee LT 3V* [id number] IMPRESSION: 1. No acute osseous findings. 2. Tricompartmental degenerative changes.
== END 2025-04-13 18:03 | disposition home or self-care (01) ==
PROVIDERS: Emergency Provider Emergency Medicine
DX: M13.862 Other specified arthritis, left knee (principal); Z79.82 Long term (current) use of aspirin; I25.10 Atherosclerotic heart disease of native coronary artery without angina pectoris; I10 Essential (primary) hypertension; Z85.528 Personal history of other malignant neoplasm of kidney; E78.2 Mixed hyperlipidemia; E11.9 Type 2 diabetes mellitus without complications
CPT/HCPCS: 73562; 96372; 99284; J1100

== ENCOUNTER 2025-04-24 00:33 | Inpatient (IN) | payer OTHER, SELFPAY ==
[2025-04-24] VITALS (10 sets, daily range): BP systolic 102–161; BP diastolic 58–77; PULSE 61–96; RESP 16–18; TEMP 36.7–36.8; O2SAT 94–97; BMI 41.3; BMI 43.6
--- OUTSIDE RECORDS SUMMARY | 2025-04-24 00:47 | XMS_ITS | Encounter Summary ---
Author Organization [facility] Address [address] [place] [address] Phone Care Team Providers Care Parts Delivery Driver Name Role Phone Sherrie Broussard NP Primary Care Provider Encounter Details Date Type Department Care Team (Late st Contact Info) Description 07/08/2019 Orders Only [facility] [address] [place] [address] Berto Adam MD [address] [place] [address] Chronic kidney disease, not otherwise [...] specified documented in this encounter Care Teams Parts Delivery Driver Relationship Specialty Start Date End Date Sherrie Broussard NP [address] [place] [address] PCP - General Family Medicine 07/20/24 documented as of this encounter
--- OUTSIDE RECORDS SUMMARY | 2025-04-24 00:47 | XMS_ITS | Clinical Summary ---
Author Organization [facility], [facility] Address [address] [place] [address] Phone Care Team Providers Care Catering Truck Driver Name Role Phone Sherrie Broussard NP Primary Care Provider [phone] Allergies Active Allergy Reactions Criticality Noted Date [...] Type Department Care Team Description 01/25/2025 Telephone [facility] [address] [place] [address] Bobbi Villa MD 01/24/2025 10:30 AM CDT Office Visit [facility] [address] [place] [address] Mecca Greenwood NP 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); Stage 3b chronic kidney disease (HCC); 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 (HCC); History of nephrectomy 01/24/2025 Documentation Only [facility] [address] [place] [address] Camasse, Maryam 01/24/2025 Documentation Only [facility] [address] [place] [address] Camasse, Maryam 01/24/2025 Documentation Only [facility] [address] [place] [address] Isabelle Duke MA from Last 3 Months Immunizations Immunization Administration [...] - Oxygen Saturation 97% 07/20/2024 10:36 AM 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 Inhaled Oxygen Concentration - - Weight 127 [...] Procedure Name Priority Date/Time Associated Diagnosis Comments HEMOGLOBIN A1C (EXTERNAL RESULT ENTRY) Routine 06/30/2022 from Last 3 Months or Most Recently Relevant to Health Maintenance Results * Hemoglobin A1C (06/30/2022) Hemoglobin A1C 7.7 Blood specimen (specimen) Venous blood / Unknown 06/30/2022 Narrative Aaliyah Walton MA - 06/30/2022 Osvaldo Barahona ME Aps External Provider LAB BLOOD ORDERABLES Final Result from Last 3 Months or Most Recently Relevant to Health Maintenance Insurance Regions 1,2,3 ([employer]) Care Teams Catering Truck Driver Relationship Specialty Start Date End Date Sherrie Broussard NP [address] [place] [address] PCP - General Family Medicine 07/20/24
--- OUTSIDE RECORDS SUMMARY | 2025-04-24 00:47 | XMS_ITS | Encounter Summary ---
Author Organization [facility] [employer] Address [address] [place] [address] Phone Care Team Providers Care Knitting Machine Tender Name Role Phone Sherrie Broussard NP Primary Care Provider [phone] Encounter Details Date Type Department Care Team (Late st Contact Info) Description 01/20/2019 Orders Only [facility] [address] [place] [address] Berto Adam MD [address] [place] [address] Chronic kidney disease, not otherwise [...] 02/01/2019 1:27 PM CDT As ordered [facility] CLIA#[id number] [address] [place] [address] Berto Adam MD LAB BLOOD ORDERABLES nal Result Performing Organization Address [facility]/ZIP Co de Phone Number [facility] documented in this encounter Visit Diagnoses Diagnosis Chronic kidney disease, not otherwise specified documented in this encounter Care Teams Knitting Machine Tender Relationship Specialty Start Date End Date Sherrie Broussard NP [address] [place] [address] PCP - General Family Medicine 07/20/24 documented as of this encounter
--- OUTSIDE RECORDS SUMMARY | 2025-04-24 00:47 | XMS_ITS | Encounter Summary ---
Author Organization [facility] Address [address] [place] [address] Phone Care Team Providers Care Direct Service Provider Name Role Phone Sherrie Broussard NP Primary Care Provider [phone] Encounter Details Date Type Department Care Team (Late st Contact Info) Description 10/21/2018 Orders Only [facility] [address] [place] [address] Abnormal result of kidney function [...] study documented in this encounter Care Teams Direct Service Provider Relationship Specialty Start Date End Date Sherrie Broussard NP [address] [facility] [place], [place] [address] PCP - General Family Medicine 07/20/24 documented as of this encounter
[2025-04-24 01:20] LABS: Glucose Urine UA 1+ (Normal); Nitrate Urine Negative (Negative); Specific Gravity, Urine 1.019 (1.005-1.030)
[2025-04-24 01:39] LABS: UA Slide Review UA Slide Review Perf
[2025-04-24 02:09] LABS: Hematocrit 33.4 % (37-53); Hemoglobin 10.60 g/dL (11.27-16.99); Mean Corpuscular HGB Conc 31.7 g/dL (30-55); Mean Corpuscular Hemoglobin 28.6 pg (27-33); Mean Corpuscular Volume 90.3 fl (82-101); Nucleated Red Blood Cells % 0 %; Platelet Count 255 10^3/cmm (157-399); Red Blood Count 3.70 10^6/uL (3.85-5.65); White Blood Count 10.45 10^3/uL (3.29-11.43)
[2025-04-24 02:22] LABS: Alanine Aminotransferase 14 U/L (0-41); Albumin Level 3.1 g/dL (3.5-5.2); Alkaline Phosphatase 74 U/L (40-130); Anion Gap 18.9 (5-19); Aspartate Amino Transferase 15 U/L (0-40); Blood Urea Nitrogen 43 mg/dL (8-23); Calcium 8.7 mg/dL (8.5-10.5); Carbon Dioxide 18 mmol/L (22-29); Chloride 100 mmol/L (98-107); Creatinine Clr Calc Pharmacy 29.7314; Globulin 3.8 g/dL (1.3-4.6); Glucose 119 mg/dL (65-115); Osmolality Calculated 286 mOsm/kg (285-295); Potassium 4.9 mmol/L (3.5-5.1); Sodium 132 mmol/L (136-145); Total Protein 6.9 g/dL (6.6-8.7)
--- NOTE | 2025-04-24 03:39 | W.ED.EXTPRO ---
HPI - Extremity Problem General: Chief complaint: Extremity Injury, Lower Stated complaint: KNEE PAIN Time Seen by Provider: 04/24/25 00:35 History of Present Illness: 79 yo M with Hx of severe L knee osteoarthritis presents via EMS for excruciating L knee pain with inability to bear weight. Pt was seen in ER on 04/13; x-ray reportedly showed arthritis without acute abnormality; received dexamethasone (Decadron) and hydrocodone. He follows with orthopedics (Dr. Karlie Douglas); had knee injections on 04/05. Per caregiver, pain worsened 3?4 days after injections; since then, pain has been severe and the knee is more swollen. Recent 13-hour drive from [place]. Pt took morphine (IR 15 mg, later ER 15 mg) for pain control. Caregiver reports confusion today and anuria for ~24 hours until arrival home, after which pt voided. Pt reports knee pain mainly in the joint; sometimes pain extends to posterior leg. Denies current bladder fullness. Emotional distress noted due to recent of daughter from metastatic breast cancer. Related Data Home Medications ?Medication ?Instructions ?Recorded ?Confirmed ascorbic acid (vitamin C) 500 mg 500 mg PO DAILY ##0 12/02/19 04/05/25 tablet (Vitamin C) aspirin 81 mg tablet 81 mg PO DAILY ##0 12/02/19 04/05/25 atorvastatin 80 mg tablet 80 mg PO QPM ##0 12/02/19 04/05/25 carvedilol 25 mg tablet (Coreg) 25 mg PO BID ##0 12/02/19 04/05/25 lisinopril 20 mg tablet 20 mg PO BEDTIME ##0 12/02/19 04/05/25 multivitamin with minerals-folic 1 tab PO DAILY ##0 12/02/19 04/05/25 acid 0.4 mg tablet acetaminophen 500 mg tablet 500 mg PO Q6H PRN Pain 01/30/22 04/05/25 (Tylenol Extra Strength) magnesium hydroxide 400 mg/5 mL 15 ml PO DAILY PRN Indigestion 01/30/22 04/05/25 oral suspension (Milk of Magnesia) turmeric 100 mg-gunner 150 1 cap PO BID 04/02/22 04/05/25 mg-olive 50 mg-oreg 150 mg-capryl capsule zinc acetate 50 mg (zinc) capsule 50 mg PO DAILY 04/02/22 04/05/25 semaglutide 1 mg/dose (2 mg/1.5 1 mg SUBCUT .WKLY 09/09/22 04/05/25 mL) subcutaneous pen injector (Ozempic) empagliflozin 25 mg tablet 25 mg PO DAILY 07/01/23 04/05/25 (Jardiance) cholecalciferol (vitamin D3) 50 50 mcg PO DAILY 12/31/23 04/05/25 mcg (2,000 unit) capsule (Vitamin D3) omega-3 fatty acids-vitamin E 1 cap PO TID 12/31/23 04/05/25 1,000 mg capsule Previous Rx's ?Medication ?Instructions ?Recorded amlodipine 10 mg tablet 10 mg PO DAILY #90 tabs 02/06/20 gabapentin 300 mg capsule 300 mg PO TID pain #90 caps 05/08/22 hydrocodone 5 mg-acetaminophen 325 1 tab PO Q6H PRN pain #20 tabs 04/13/25 mg tablet polyethylene glycol 3350 17 17 g PO DAILY #510 grams 04/13/25 gram/dose oral powder (Miralax) Allergies Allergy/AdvReac Type Severity Reaction Status Date / Time No Known Allergies Allergy Verified 04/24/25 00:35 [facility] ED PFSH: Medical History (Updated 04/24/25 @ 05:57 by Kamlesh Villa MD) Benign essential HTN History of renal cell carcinoma Gout Severe obstructive sleep apnea Colon polyps Internal hemorrhoids Obesity Mixed hyperlipidemia Diabetes mellitus Arteriosclerotic heart disease Morbid obesity with body mass index (BMI) of 50.0 to 59.9 in adult Degenerative arthritis of knee Surgical History H/O arthroscopic knee surgery History of abdominal surgery History of heart artery stent Coronary artery stent 1996 History of right nephrectomy History of renal cell cancer Nephrectomy in 2016 Family History Father Myocardial infarction Social History Smoking and tobacco/nicotine status: never used tobacco/nicotine Second hand smoke exposure: No Alcohol intake: never Substance/Drug Use: never Household members: family Housing: House Physical Exam Narrative: EXAM NARRATIVE: Extremities: Left knee hot and swollen; patient unable to bear weight due to pain. Caregiver notes swelling increased compared with prior. MSK: Pain localized primarily to the L knee joint - worse with any motion, prefers 5 degrees flexion Const: COMMON NORMALS: no acute distress and alert HENMT: COMMON NORMALS: normocephalic and atraumatic HEAD & SCALP: normocephalic and atraumatic Eye: COMMON NORMALS: Equal, round and reactive pupils present, EOMs intact bilaterally and no scleral icterus PUPIL: Yes Equal, round and reactive pupils present Resp: COMMON NORMALS: normal respiratory effort and No retractions Cardio: COMMON NORMALS: regular rate, regular rhythm and No murmurs present (Cardio) RATE: regular rate RHYTHM: regular rhythm GI: COMMON NORMALS: Normal to inspection, nondistended, normoactive bowel sounds present, Soft to palpation and non-tender PALPATION: Yes Soft to palpation Neuro: SENSORIUM/ORIENTATION: Yes alert OTHER: Mildly confused, repeats himself, no lateralizing deficits. Skin: COMMON NORMALS: no rashes or lesions noted GENERAL SKIN EXAM: no rashes or lesions noted Procedures Joint Aspiration/Injection Joint Asp./Inject. 1: Time Out Performed: Yes Side of body: left Joint Aspirated: knee Ultrasound Guidance: Yes Skin Prep: Povidone-Iodine1% Needle Size Used: 22G Fluid Obtained: viscous Total fluid obtained (mL): 40 Patient Tolerated Procedure: well and no complications Complications: none Course Vital Signs: Vital signs: Vital Signs Temperature 98.3 F 04/24/25 00:35 Pulse Rate 78 04/24/25 02:52 Respiratory Rate 18 04/24/25 04:12 Blood Pressure 153/60 04/24/25 02:52 Pulse Oximetry 97 04/24/25 04:12 Oxygen Delivery Me thod Room Air 04/24/25 02:52 MDM - Extremity (Nontraumatic) Medical Decision Making 79 yo M with severe L knee OA presents with escalating L knee pain and inability to bear weight after recent intra-articular injections. Caregiver reports confusion and ~24 h anuria before a recent void; long car ride; uses morphine for pain. Known single kidney from prior kidney cancer. DDx includes septic arthritis of the L knee given hot, swollen joint and severe pain; DVT considered due to long drive and leg symptoms but thought less likely; urinary retention with possible JULI and metabolic encephalopathy; UTI also considered. X-ray deemed low yield. Planned: bladder scan for retention, blood work to assess renal function and infection, UA, and L knee arthrocentesis for fluid analysis and decompression. Venous ultrasound to evaluate for DVT considered. Pt likely unsafe for discharge pending evaluation. Bladder scan showed greater than 1000 mL retained and he was unable to pass urine thus Ochoa was placed. Kidney function appears to be roughly stable with creatinine of 2.7 up from previous measurements of 2.3 and 2.4. Urinalysis does not show evidence of infection. Left knee was thoroughly cleansed and then effusion was drained and fluid sent for analysis to look for septic joint. Spoke with Dr. Mao concerning cell count and she feels results are more indicative of inflammatory process rather than septic joint. I agree. Given his confusion and inability to ambulate I do not feel that he is safe for discharge home in the care of his . As such, he will be admitted to the hospitalist service for consideration for possible placement. Kidney function appears stable. Bladder scan showed greater than 1000 mL of urine retained in the bladder and he was unable to pass urine and thus Ochoa was placed. Urine does not appear infected. Lab Data 04/24/25 01:54 04/24/25 01:54 Laboratory Results WBC 10.45 10^3/uL (3.29-11.43) 04/24/25 01:54 RBC 3.70 10^6/uL (3.85-5.65) L 04/24/25 01:54 Hgb 10.60 g/dL (11.27-16.99) L 04/24/25 01:54 Hct 33.4 % (37-53) L 04/24/25 01:54 MCV 90.3 fl (82-101) 04/24/25 01:54 MCH 28.6 pg (27-33) 04/24/25 01:54 MCHC 31.7 g/dL (30-55) 04/24/25 01:54 RDW 13.4 % (12.1-15.1) 04/24/25 01:54 Plt Count 255 10^3/cmm (157-399) 04/24/25 01:54 MPV 9.3 fL (7.4-10.4) 04/24/25 01:54 Neut % (Auto) 74.9 % 04/24/25 01:54 Lymph % (Auto) 13.3 % 04/24/25 01:54 [place] % (Auto) 9.7 % 04/24/25 01:54 Eos % (Auto) 1.5 % 04/24/25 01:54 Baso % (Auto) 0.1 % 04/24/25 01:54 Neut # (Auto) 7.83 10^3/uL (1.8-7.7) H 04/24/25 01:54 Lymph # (Auto) 1.4 10^3/uL (0.8-4.8) 04/24/25 01:54 [place] # (Auto) 1.0 10^3/uL (0.2-0.9) H 04/24/25 01:54 Eos # (Auto) 0.2 10^3/uL (0.0-0.8) 04/24/25 01:54 Baso # (Auto) 0.0 10^3/uL (0.0-0.1) 04/24/25 01:54 Nucleated RBC % (auto) 0 % 04/24/25 01:54 Nucleated RBCs # 0.0 /100WBC 04/24/25 01:54 ESR 39 mm/hr (0-10) H 04/24/25 01:54 Sodium 132 mmol/L (136-145) L 04/24/25 01:54 Potassium 4.9 mmol/L (3.5-5.1) 04/24/25 01:54 Chloride 100 mmol/L (98-107) 04/24/25 01:54 Carbon Dioxide 18 mmol/L (22-29) L 04/24/25 01:54 Anion Gap 18.9 (5-19) 04/24/25 01:54 BUN 43 mg/dL (8-23) H 04/24/25 01:54 Creatinine 2.7 mg/dL (0.7-1.2) H 04/24/25 01:54 GFR Calculation Not Reportable 04/24/25 01:54 Glucose 119 mg/dL (65-115) H 04/24/25 01:54 Calculated Osmolality 286 mOsm/kg (285-295) 04/24/25 01:54 Calcium 8.7 mg/dL (8.5-10.5) 04/24/25 01:54 Total Bilirubin 0.4 mg/dL (0.15-1.2) 04/24/25 01:54 AST 15 U/L (0-40) 04/24/25 01:54 ALT 14 U/L (0-41) 04/24/25 01:54 Alkaline Phosphatase 74 U/L (40-130) 04/24/25 01:54 Total Protein 6.9 g/dL (6.6-8.7) 04/24/25 01:54 Albumin 3.1 g/dL (3.5-5.2) L 04/24/25 01:54 Globulin 3.8 g/dL (1.3-4.6) 04/24/25 01:54 Urine Color Yellow (Yellow) 04/24/25 01:09 Urine Appearance Clear (CLEAR) 04/24/25 01:09 Urine pH 5.0 (5-7) 04/24/25 01:09 Ur Specific [place] 1.019 (1.005-1.030) 04/24/25 01:09 Urine Protein 1+ (Negative) A 04/24/25 01:09 Urine Glucose (UA) 1+ (Normal) H 04/24/25 01:09 Urine Ketones Negative (Negative) 04/24/25 01:09 Urine Blood Negative (Negative) 04/24/25 01:09 Urine Nitrate Negative (Negative) 04/24/25 01:09 Urine Bilirubin Negative (Negative) 04/24/25 01:09 Urine Urobilinogen 1.0 mg/dL (Negative) 04/24/25 01:09 Ur Leukocyte Esterase Negative (Negative) 04/24/25 01:09 Urine RBC 0-2 /hpf (0-2) 04/24/25 01:09 Urine WBC 0-5 /hpf (0-5) 04/24/25 01:09 Ur Squamous Epith Cells 0-5 /hpf (0-5) 04/24/25 01:09 Amorphous Sediment Not Reportable 04/24/25 01:09 Urine Bacteria None seen /hpf (NONE) 04/24/25 01:09 Hyaline Casts 9.51 /lpf 04/24/25 01:09 Fine Granular Casts 0-4 /lpf H 04/24/25 01:09 Coarse Granular Casts 0-4 /lpf H 04/24/25 01:09 Other Casts Epithelial /lpf 09/22/25 01:09 Urine Mucus Trace /hpf 04/24/25 01:09 Fld Tot Nucleated Cell Cancelled 04/24/25 02:10 Fluid Neutrophils % Cancelled 04/24/25 02:10 Fluid Lymphocytes % Cancelled 04/24/25 02:10 Fluid Eosinophils % Cancelled 04/24/25 02:10 Fluid Basophils % Cancelled 04/24/25 02:10 Fl Monocyt/Macrophag % Cancelled 04/24/25 02:10 Fld Mesothelial Cell % Cancelled 04/24/25 02:10 Fluid Crystal Appear Cancelled 04/24/25 02:10 Fluid Crystal Color Cancelled 04/24/25 02:10 Synovial Color Pale yellow (PALE YELLOW) 04/24/25 02:10 Synovial Appearance Turbid (CLEAR) 04/24/25 02:10 Synovial WBC 6245 /uL (0-150) H 04/24/25 02:10 Synovial RBC 9 10^3/uL (0-0) H 04/24/25 02:10 Synovial Mononuclear 1.113 10^3/uL 04/24/25 02:10 Synov Polynuclear WBCs 5.132 10^3/uL 04/24/25 02:10 Synovial Other Cells Not Reportable 04/24/25 02:10 Synovial Polynuclear % 82.200 % 04/24/25 02:10 Synovial Mononuclear % 17.800 % 04/24/25 02:10 Clinical Comments Cancelled 04/24/25 02:10 Path Cons w/Slide Not Reportable 04/24/25 02:10 No radiology studies performed this visit Discharge Plan Discharge Patient Disposition: Placed in Observation Clinical Impression: Effusion of left knee, Acute confusion Coding Level of Care Code ED Lacing String Cutter for Danitza Meyer
[2025-04-24] MEDS: morphine 4 mg/mL SDV 1 mL IVP (04:12)
[2025-04-24 04:18] LABS: RBC Synovial Fluid 9 10^3/uL (0-0); Synovial Fluid Mononuclear # 1.113 10^3/uL; Synovial Fluid Mononuclear % 17.800 %; Synovial Fluid Polynuclear # 5.132 10^3/uL; Synovial Fluid Polynuclear % 82.200 %
[2025-04-24 04:19] LABS: Color Synovial Fluid PALE YELLOW (PALE YELLOW); Cyto Order Verification No Order
[2025-04-24 06:02] LABS: Uric Acid 6.9 mg/dL (3.4-7.0)
[2025-04-24 06:08] LABS: PATH Referal YES
--- NOTE | 2025-04-24 06:34 | PM.HP ---
Providers/Chief Complaint Admitting Physician: Adi Mccarthy MD Chief Complaint: KNEE PAIN History of Present Illness Tom Bess is a 79 year old male with diabetes and morbid obesity who suffers from chronic left knee DJD. He has had multiple injections with steroids and is [id number] medially. He was trying to reach 280 pounds so he can have his knee replaced. Patient has been on Ozempic for a year and lost 80 pounds so far. Patient had fallen on his left knee on March 20. His daughter of breast cancer in [place] on the . On April 05 he had injection for his knee by Dr. Douglas and that improved but then worsened and he required visit in the emergency department where he received IM steroid injection, dexamethasone oral and oral hydrocodone on April 13. On April 20 he went to celebration of life in [place] but has been in a lot of pain so drove him back on the and then brought him to the emergency department for left knee pain and swelling with increased warmth. Patient had 40 cc yellow turbid fluid drawn which was positive for 6000 white count consistent with inflammatory arthritis. This was discussed with Dr. Douglas. Patient is unable to walk and at this time is referred for admission for pain control and potentially placement Additionally patient is had altered mental status but this is attributable to a full bladder of 1000 cc that he was unable to void and extended release morphine 15 mg that he is taking 1 twice a day given to him by his RN from recently daughters meds supply. Additionally she gave him 400 mg of ibuprofen twice a day to try and alleviate the pain but realizes that he only has the left kidney and has renal failure. Patient was confused today thought they were in [place] and then kept asking his where we going and she kept telling him that they were going home to [place]. Ochoa was placed in the ER returning 1000 cc residual Review of Systems Narrative: General no fevers chills he has had 80 pound weight loss with effort Cardiovascular no chest pain or palpitations. Patient had a stent following tPA 1996 for an SD that was averted. Stent was placed at [facility] tPA was given at [place] Resp no shortness of breath cough wheezing GI no nausea vomiting diarrhea constipation he does take some stool softeners no dysuria hematuria he had urine incontinence but did not know he had that problem Neuro no history of seizures or strokes Medications/Allergies Home Medications ?Medication ?Instructions ?Recorded ?Confirmed ?Last Taken ?Type ascorbic acid (vitamin C) 500 mg 500 mg PO DAILY ##0 12/02/19 04/05/25 12/30/23 History tablet (Vitamin C) aspirin 81 mg tablet 81 mg PO DAILY ##0 12/02/19 04/05/25 12/28/23 History atorvastatin 80 mg tablet 80 mg PO QPM ##0 12/02/19 04/05/25 12/30/23 History carvedilol 25 mg tablet (Coreg) 25 mg PO BID ##0 12/02/19 04/05/25 12/30/23 History 2300 lisinopril 20 mg tablet 20 mg PO BEDTIME ##0 12/02/19 04/05/25 12/30/23 History multivitamin with minerals-folic 1 tab PO DAILY ##0 12/02/19 04/05/25 12/30/23 History acid 0.4 mg tablet amlodipine 10 mg tablet 10 mg PO DAILY #90 tabs 02/06/20 04/05/25 12/30/23 Rx acetaminophen 500 mg tablet 500 mg PO Q6H PRN Pain 01/30/22 04/05/25 12/30/23 History (Tylenol Extra Strength) magnesium hydroxide 400 mg/5 mL 15 ml PO DAILY PRN Indigestion 01/30/22 04/05/25 12/27/23 History oral suspension (Milk of Magnesia) turmeric 100 mg-gunner 150 1 cap PO BID 04/02/22 04/05/25 12/30/23 History mg-olive 50 mg-oreg 150 mg-capryl capsule zinc acetate 50 mg (zinc) capsule 50 mg PO DAILY 04/02/22 04/05/25 12/30/23 History gabapentin 300 mg capsule 300 mg PO TID pain #90 caps 05/08/22 04/05/25 12/30/23 Rx semaglutide 1 mg/dose (2 mg/1.5 1 mg SUBCUT .WKLY 09/09/22 04/05/25 12/24/23 History mL) subcutaneous pen injector (Ozempic) empagliflozin 25 mg tablet 25 mg PO DAILY 07/01/23 04/05/25 12/30/23 History (Jardiance) cholecalciferol (vitamin D3) 50 50 mcg PO DAILY 12/31/23 04/05/25 12/30/23 History mcg (2,000 unit) capsule (Vitamin D3) omega-3 fatty acids-vitamin E 1 cap PO TID 12/31/23 04/05/25 12/30/23 History 1,000 mg capsule hydrocodone 5 mg-acetaminophen 325 1 tab PO Q6H PRN pain #20 tabs 04/13/25 Unknown Rx mg tablet polyethylene glycol 3350 17 17 g PO DAILY #510 grams 04/13/25 Unknown Rx gram/dose oral powder (Miralax) Allergies Allergy/AdvReac Type Severity Reaction Status Date / Time No Known Allergies Allergy Verified 04/24/25 00:35 PFSH Acute PFSH: Medical History (Updated 04/24/25 @ 06:47 by Adi Mccarthy MD) Benign essential HTN History of renal cell carcinoma Gout Severe obstructive sleep apnea Colon polyps Internal hemorrhoids Obesity Mixed hyperlipidemia Diabetes mellitus Arteriosclerotic heart disease Morbid obesity with body mass index (BMI) of 50.0 to 59.9 in adult Degenerative arthritis of knee Surgical History H/O arthroscopic knee surgery History of abdominal surgery History of heart artery stent Coronary artery stent 1996 History of right nephrectomy History of renal cell cancer Nephrectomy in 2015 Family History Father Myocardial infarction Social History (Updated 04/24/25 @ 06:44 by Adi Mccarthy MD) Smoking and tobacco/nicotine status: never used tobacco/nicotine Second hand smoke exposure: No Alcohol intake: never Substance/Drug Use: never Additional social history: He is accompanied by his Coleen and grandson Alejo Household members: family Housing: House Vitals/I&O/Wt Last Vital Signs Temp 98.3 F 04/24/25 00:35 Pulse 78 04/24/25 02:52 Resp 18 04/24/25 04:12 BP 153/60 04/24/25 02:52 Pulse Ox 97 04/24/25 04:12 O2 Del Method Room Air 04/24/25 02:52 04/23/25 04/23/25 04/24/25 14:59 22:59 06:59 Intake Total 0 / 0 Balance 0 / 0 Weight last 48 hrs Weight 127.006 kg Physical Exam Narrative: General well-developed well-nourished morbidly obese male in no acute cardiopulmonary stress Neuro he has heavy eyelids drifting off to light sleep but awakens quickly. He knows that April and that he is in [place] in the hospital but thought it was maybe or 2024 Cardiovascular regular rate and rhythm no murmurs rubs or gallops Lungs clear to auscultation bilaterally Abdomen obese soft nontender Calves 1+ bilateral pretibial edema right knee small effusion mildly warm left knee moderate effusion modestly warm no erythema it is mildly tender to touch. Urinary Catheter Management: Ochoa: Cath Placed During This Visit: yes Reason for Continuing Indwelling Catheter: Acute Urinary Retention or Obstruction Urinary Catheter Date of Insertion: 04/24/25 Urinary Catheter Time of Insertion: 02:40 Data 04/24/25 01:54 04/24/25 01:54 Micro: Microbiology 04/24/25 02:10 Anaerobic Culture - Preliminary Knee - #1 A&P Assessment and plan 1. Primary osteoarthritis of left knee: Patient is admitted to the hospital with inflammatory arthritis. Cannot completely exclude septic arthritis but the patient is not otherwise systemically septic. Hold off on antibiotics for now. Will have PT eval and treat and IV and oral pain medications. Will Chai wrap left knee. Goal is to get the patient home potentially tomorrow 2. Effusion of left knee: As above 3. Urine retention: Start Flomax Ochoa is in place this may be in part due to narcotics given at home 4. Morbid obesity with body mass index (BMI) of 50.0 to 59.9 in adult: Patient was counseled regarding 1800-calorie goal for weight loss counting calories and making diet changes intellectually as opposed to just depending on medication for appetite suppression. Patient and voiced understanding and appreciation 5. Altered mental status: Somewhat improved will monitor in hospital overnight 6. Intractable pain: PDMP PDMP Reviewed: Not Reviewed Attestations Medical Necessity Statement*: Patient is admitted to the hospital for pain control and therapy anticipate that his hospitalization will not cross 2 midnights Coding Level of Care Code 92873 Diagnoses Primary osteoarthritis of left knee M17.12 Effusion of left knee M25.462 Urine retention R33.9 Morbid obesity with body mass index (BMI) of 50.0 to 59.9 in adult E66.01; Z68.43 Altered mental status R41.82 Intractable pain R52 Time Spent (min) 70
[2025-04-24] MEDS: oxyCODONE 5 mg IR Tab/Cap 10 MG PO (07:01)
[2025-04-24] MEDS: heparin 5,000 unit/mL INJ 1 mL 5000 UNIT SUBCUT ×2 (07:02→17:29)
[2025-04-24 08:36] LABS: Crystals, Fluid SENT
--- NOTE | 2025-04-24 08:43 | XRR_ITS ---
PROCEDURE INFORMATION: Exam: XR Chest Exam date and time: 04/24/2025 09:34 AM Age: 79 years old Clinical indication: Shortness of breath; Additional info: SOB TECHNIQUE: Imaging protocol: Radiologic exam of the chest. Views: 1 view. COMPARISON: CT kidney stone [id number] 12/02/2019 02:52 AM FINDINGS: Lungs: Low lung volumes with central bronchovascular crowding. Pleural spaces: Unremarkable. Question trace right pleural fluid. No pneumothorax. Heart/Mediastinum: Unremarkable. No cardiomegaly. Vasculature: Atherosclerotic vascular disease. Bones/joints: Degenerative changes of the spine. XR/XR chest 1V portable [id number] IMPRESSION: Possible trace right pleural fluid. No airspace disease.
--- NOTE | 2025-04-24 08:44 | USCV_ITS ---
BessTom diop Age: 79 Gender: M : 1945 Exam Date: 04/24/2025 09:29 Ordering Phys: Jeovany Grant MD Technologist: Exam Location: [facility] Indication: bilat swelling PROCEDURES: The venous duplex Doppler examination of both lower extremities was performed in the standard fashion. The following venous structures were evaluated: common femoral vein, profunda vein, proximal portion of the greater saphenous vein, superficial femoral vein, and the popliteal vein. In addition, the posterior tibial and peroneal trunk were evaluated. FINDINGS: Normal 2-D Doppler and augmentation and compressibility throughout the lower extremity venous structures. Additional imaging through the proximal calf veins also reveals no thrombus. Limited evaluation of the greater saphenous vein is patent with no thrombus. CONCLUSIONS No DVT bilateral lower extremities. Dr. Argentina Sullivan DO (Electronically Signed) Final Date: 24 April 2025 11:41 S
[2025-04-24] MEDS: polyethylene glycol 3350 Pkt 17 gm PO (08:45)
--- OUTSIDE RECORDS SUMMARY | 2025-04-24 09:19 | XMS_ITS | Encounter Summary ---
Author Organization [facility] Address [address] [place] [address] Phone Care Team Providers Care Insurance Claim Auditor Name Role Phone Sherrie Broussard NP Primary Care Provider [phone] Encounter Details Date Type Department Care Team (Late st Contact Info) Description 07/08/2019 Orders Only [facility] [address] [place] [address] Berto Adam MD [address] [place] [address] Chronic kidney disease, not otherwise [...] specified documented in this encounter Care Teams Insurance Claim Auditor Relationship Specialty Start Date End Date Sherrie Broussard NP [address] [place] [address] PCP - General Family Medicine 07/20/24 documented as of this encounter
--- OUTSIDE RECORDS SUMMARY | 2025-04-24 09:19 | XMS_ITS | Clinical Summary ---
Author Organization [facility] Address [address] [place] [address] Phone Care Team Providers Care Painter Drum Name Role Phone Sherrie Broussard NP Primary Care Provider [phone] Allergies Active Allergy Reactions Criticality Noted Date [...] Type Department Care Team Description 01/25/2025 Telephone [facility] [address] [place] [address] Bobbi Villa MD 01/24/2025 10:30 AM CDT Office Visit [facility] [address] [place] [address] eMcca Greenwood NP 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); Stage 3b chronic kidney disease (HCC); 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 (HCC); History of nephrectomy 01/24/2025 Documentation Only [facility] [address] [place] [address] Camasse, Maryam 01/24/2025 Documentation Only [facility] [address] [place] [address] Camasse, Maryam 01/24/2025 Documentation Only [facility] [address] [place] [address] Isabelle Duke MA from Last [...] - Oxygen Saturation 97% 07/20/2024 10:36 AM 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
--- OUTSIDE RECORDS SUMMARY | 2025-04-24 09:19 | XMS_ITS | Encounter Summary ---
Author Organization [facility] Address [address] [place] [address] Phone Care Team Providers Care Vp [employer] Name Role Phone Sherrie Broussard NP Primary Care Provider [phone] Encounter Details Date Type Department Care Team (Late st Contact Info) Description 10/21/2018 Orders Only [facility] [address] [place] [address] Abnormal result of kidney function [...] study documented in this encounter Care Teams V[employer] Relationship Specialty Start Date End Date Sherrie Broussard NP [address] [facility] [facility] [place], [place] [address] PCP - General Family Medicine 07/20/24 documented as of this encounter
--- OUTSIDE RECORDS SUMMARY | 2025-04-24 09:19 | XMS_ITS | Encounter Summary ---
Author Organization [facility] Address [address] [place] [address] Phone Care Team Providers Care Pool Table Operator Name Role Phone Sherrie Broussard NP Primary Care Provider [phone] Encounter Details Date Type Department Care Team (Late st Contact Info) Description 01/20/2019 Orders Only [facility] [address] [place] [address] Berto Adam MD [address] [place] [address] Chronic kidney disease, not otherwise [...] 02/01/2019 1:27 PM CDT As ordered [facility] CLIA#[id number] [address] [place] [address] Berto Adam MD LAB BLOOD ORDERABLES nal Result Performing Organization Address [facility]/ZIP Co de Phone Number [facility] documented in this encounter Visit Diagnoses Diagnosis Chronic kidney disease, not otherwise specified documented in this encounter Care Teams Pool Table Operator Relationship Specialty Start Date End Date Sherrie Broussard NP [address] [facility] [place] [address] PCP - General Family Medicine 07/20/24 documented as of this encounter
[2025-04-24 09:33] LABS: Hematocrit 29.7 % (37-53); Hemoglobin 9.30 g/dL (11.27-16.99); Mean Corpuscular HGB Conc 31.3 g/dL (30-55); Mean Corpuscular Hemoglobin 28.7 pg (27-33); Mean Corpuscular Volume 91.7 fl (82-101); Nucleated Red Blood Cells % 0 %; Platelet Count 208 10^3/cmm (157-399); Red Blood Count 3.24 10^6/uL (3.85-5.65); White Blood Count 7.59 10^3/uL (3.29-11.43)
[2025-04-24 09:40] LABS: Anion Gap 16.3 (5-19); Blood Urea Nitrogen 41 mg/dL (8-23); Calcium 8.2 mg/dL (8.5-10.5); Carbon Dioxide 19 mmol/L (22-29); Chloride 101 mmol/L (98-107); Creatinine Clr Calc Pharmacy 34.4446; Glucose 149 mg/dL (65-115); Osmolality Calculated 287 mOsm/kg (285-295); Potassium 4.3 mmol/L (3.5-5.1); Sodium 132 mmol/L (136-145)
[2025-04-24 09:47] LABS: Procalcitonin 0.31 ng/mL (0-0.5)
--- NOTE | 2025-04-24 15:14 | CTR_ITS ---
PROCEDURE INFORMATION: Exam: CT Head Without Contrast Exam date and time: 04/24/2025 10:07 PM Age: 79 years old Clinical indication: Altered mental status/memory loss; Additional info: AMS TECHNIQUE: Imaging protocol: Computed tomography of the head without contrast. Radiation optimization: All CT scans at this facility use at least one of these dose optimization techniques: automated exposure control; mA and/or kV adjustment per patient size (includes targeted exams where dose is matched to clinical indication); or iterative reconstruction. COMPARISON: No relevant prior studies available. RADIATION DOSE METRICS: Total DLP (mGy-cm): 1170.18 FINDINGS: Brain: Normal. No hemorrhage. Unremarkable white matter. No mass effect. Cerebral ventricles: No ventriculomegaly. Paranasal sinuses: Visualized sinuses are unremarkable. No fluid levels. Mastoid air cells: Visualized mastoid air cells are well aerated. Orbital cavities: Bilateral cataract extractions are noted. Bones: Unremarkable. No acute fracture. Soft tissues: Unremarkable. Vasculature: Calcification of the V4 segment of the vertebral arteries is noted. Atherosclerosis without substantial stenosis of the carotid siphons bilaterally. CT/CT head wo con* [id number] IMPRESSION: No acute intracranial abnormality.
--- NOTE | 2025-04-24 15:15 | P.PN_ITS ---
Subjective 2 Subjective: Patient was seen this morning, currently alert oriented x 3, following commands, denies any fevers, no chills, no nausea, vomiting his left knee pain is more under control, denies any headache, no blurry vision, no neck pain, no neck stiffness, no abdominal pain or diarrhea no new rashes, no history of strokes, Vitals/I&O/Wt Last Vital Signs Temp 98.2 F 04/24/25 11:28 Pulse 61 04/24/25 11:28 Resp 16 04/24/25 11:28 BP 111/63 04/24/25 11:28 Pulse Ox 97 04/24/25 11:28 O2 Del Method Room Air 04/24/25 11:28 04/24/25 04/24/25 04/24/25 06:59 14:59 22:59 Intake Total 0 / 0 240 / 240 Balance 0 / 0 240 / 240 Weight last 48 hrs Weight 133.951 kg Weight 127.006 kg Physical Exam 2 Const: COMMON NORMALS: no acute distress ORIENTATION/CONSCIOUSNESS: Yes awake, Yes oriented to person and Yes oriented to place; not oriented to time OTHER: Patient follows commands, he is drowsy easily falls back asleep, but is easily reorientable Resp: COMMON NORMALS: normal respiratory effort, No retractions, No use of accessory muscles and clear to auscultation bilaterally AUSCULTATION: clear to auscultation bilaterally Cardio: COMMON NORMALS: regular rate, regular rhythm, S1 normal heart sound present and S2 normal heart sound present RATE: regular rate RHYTHM: r egular rhythm HEART SOUNDS: S1 normal heart sound present and S2 normal heart sound present GI: COMMON NORMALS: Normal to inspection, nondistended, normoactive bowel sounds present and non-tender Extremity: COMMON NORMALS: no calf tenderness and no pedal edema NARRATIVE EXTREMITY EXAM: Left knee no significant erythema, swelling or tenderness Neuro: SENSORIUM/ORIENTATION: Yes oriented to person, Yes oriented to place and No oriented to time Psych: COMMON NORMALS: mental status grossly normal Urinary Catheter Management: [place]: Cath Placed During This Visit: yes Reason for Continuing Indwelling Catheter: Acute Urinary Retention or Obstruction Urinary Catheter Date of Insertion: 04/24/25 Urinary Catheter Time of Insertion: 02:40 Data 04/24/25 09:08 04/24/25 09:08 Micro: Microbiology 04/24/25 09:12 Blood Culture - Preliminary Blood SPECIMEN COLLECTED 04/24/25 09:08 Blood Culture - Preliminary Blood SPECIMEN COLLECTED 04/24/25 02:10 Anaerobic Culture - Preliminary Knee - #1 A&P Assessment and plan 1. Primary osteoarthritis of left knee: 2. Effusion of left knee: 3. Urine retention: 4. Morbid obesity with body mass index (BMI) of 50.0 to 59.9 in adult: 5. Altered mental status: 6. Intractable pain: Plan: Acute encephalopathy - Potentially related to urinary retention -Neurochecks, stroke scale, aspiration precautions - Ochoa catheter placed - UA within normal limits -Blood cultures ordered - Chest x-ray within normal limits - CT head ordered - Left knee status post arthrocentesis, pale yellow, turbid, 6245 white blood cells Urinary retention, Ochoa catheter placed Left knee pain, swelling, effusion - Status post arthrocentesis - Fluid is pale, yellow, turbid, 645 white blood cells - Gram stain and culture pending PT OT full code heparin dvt prphylaxis PDMP PDMP Reviewed: Not Reviewed Attestations 2 Medical Necessity Statement*: Patient requires hospitalization for acute encephalopathy, left knee swelling Diagnoses Primary osteoarthritis of left knee M17.12 Effusion of left knee M25.462 Urine retention R33.9 Morbid obesity with body mass index (BMI) of 50.0 to 59.9 in adult E66.01; Z68.43 Altered mental status R41.82 Intractable pain R52
[2025-04-24 15:42] LABS: Glucose Synovial Fluid 40 mg/dL
[2025-04-24 16:29] LABS: pH Synovial Fluid 7.0 (7.0-7.5)
--- NOTE | 2025-04-24 19:30 | CTR_ITS ---
PROCEDURE INFORMATION: Exam: CT Lumbar Spine Without Contrast Exam date and time: 04/24/2025 10:10 PM Age: 79 years old Clinical indication: Low back pain; Additional info: Back pain, originaly ordered as an xray due to PT size we contacted the night TECHNIQUE: Imaging protocol: Computed tomography of the lumbar spine without contrast. Radiation optimization: All CT scans at this facility use at least one of these dose optimization techniques: automated exposure control; mA and/or kV adjustment per patient size (includes targeted exams where dose is matched to clinical indication); or iterative reconstruction. COMPARISON: MR lumbar spine wo con* [id number] 03/15/2024 11:58 AM RADIATION DOSE METRICS: Total DLP (mGy-cm): 1455.55 FINDINGS: Bones/joints: Degenerative joint and disc disease is most prominent at L2-L3. Schmorl's nodes are present. No acute fracture or compression deformity is noted. No subluxations. Circumferential posterior disc bulge at L4-L5. Multilevel neural foraminal stenosis, better characterized on prior MRI. Kidneys and ureters: Simple left renal cysts are present (Bosniak 1). No follow-up required. Vasculature: Moderate atherosclerosis of the abdominal aorta and major vessels is branching present. Soft tissues: Unremarkable. CT/CT lumbar spine wo con* [id number] IMPRESSION: 1. No acute fracture or compression deformity. 2. Multilevel degenerative changes, most prominent at L2-L3. 3. No subluxations. 4. L4-L5 posterior disc bulge. 5. Multilevel neural foraminal stenosis, better characterized on prior MRI from 03/15/2024. Repeat MRI lumbar spine without contrast can be obtained if clinically indicated. COMMENTS: Consistent with the [employer]'s Incidental Findings Committee white paper (J Am Flory Radiol 2018): Any incidental renal lesion less than 1 cm or classified as too small to characterize, or any incidental cystic renal lesion characterized as simple-appearing, is likely benign. No follow-up imaging is recommended for these lesions per consensus recommendations based on imaging criteria.
[2025-04-25] VITALS (7 sets, daily range): BP systolic 100–145; BP diastolic 51–65; PULSE 64–73; RESP 15–115; TEMP 36.4–36.9; O2SAT 95–96
[2025-04-25 04:55] LABS: Hematocrit 28.0 % (37-53); Hemoglobin 8.80 g/dL (11.27-16.99); Mean Corpuscular HGB Conc 31.4 g/dL (30-55); Mean Corpuscular Hemoglobin 28.6 pg (27-33); Mean Corpuscular Volume 90.9 fl (82-101); Nucleated Red Blood Cells % 0 %; Platelet Count 198 10^3/cmm (157-399); Red Blood Count 3.08 10^6/uL (3.85-5.65); White Blood Count 6.72 10^3/uL (3.29-11.43)
[2025-04-25 05:26] LABS: Anion Gap 17.6 (5-19); Blood Urea Nitrogen 41 mg/dL (8-23); Calcium 8.4 mg/dL (8.5-10.5); Carbon Dioxide 19 mmol/L (22-29); Chloride 102 mmol/L (98-107); Creatinine Clr Calc Pharmacy 30.6174; Glucose 132 mg/dL (65-115); Osmolality Calculated 290 mOsm/kg (285-295); Potassium 4.6 mmol/L (3.5-5.1); Sodium 134 mmol/L (136-145)
[2025-04-25] MEDS: heparin 5,000 unit/mL INJ 1 mL 5000 UNIT SUBCUT ×2 (05:45→17:33)
[2025-04-25] MEDS: polyethylene glycol 3350 Pkt 17 gm PO (08:24)
[2025-04-25] MEDS: oxyCODONE 5 mg IR Tab/Cap 10 MG PO ×2 (08:25→16:09)
--- NOTE | 2025-04-25 10:59 | PC.CHAP ---
Pastoral Care Encounter/Spiritual Assessment Type of Contact [] Declined sports statistician visit [] Patient/Family/Request visit [] Outpatient visit [] Follow-up visit [] Physician referral [] Code/Alert [x] Routine visit [] Staff referral [] Actively dying [] Patient sleeping [x] Family support [] [] Out of room [] Palliative care [] [] Receiving care in room [] Pre-surgical visit [] Trauma [] Long length of stay [] ICU visit [] Other: Relational/Emotional Strength [x] Patient feels connected with others/family/visitors/staff [] Distress [] Loneliness/isolation [] Abandonment Spirituality of Patient [x] Person of Bela [x] Attends Roman Catholic of their Bela [x] Believes in Prayer [x] Reads Bible or Denominational materials [] There are Spiritual issues to be addressed Special Collections Librarian Interventions [x] Prayer [x] Active listening [] Non-anxious presence [x] Spiritual/emotional support [] Crisis/trauma care [] Spiritual counseling [] Bereavement support [] Provided bereavement packet [] Provided Bible/devotional materials [] Provided toy/stuffed animal, coloring book to patient or family member [] Provided Communion [] Anointing/[place] [] Salvation [x] Completed spiritual assessment [] Other: Impact on Illness or Injury [] Angry [] Fearful [] Anxious [] Often cries [] Exhaustion [] Unable to work [] Unable to attend restorationism [] Unable to walk/stand [] Unable to read [] Unable to drive [] Unable to eat/drink [] Unable to sleep [] Unable to be with family [] Patient intubated [] Other: Summary Time spent with patient 10 min
[2025-04-25 13:16] LABS: Estmated Average Glucose 126; Hemoglobin A1C 6.0 % (4.0-6.0)
[2025-04-25] MEDS: pantoprazole 40 mg SDV IVP (13:50)
[2025-04-25] MEDS: methylPREDNISolone sod succ 125 mg/2 mL INJ IVP (13:52)
--- NOTE | 2025-04-25 16:27 | P.PN_ITS ---
Subjective 2 Subjective: Patient was seen this morning, currently alert oriented x 3, follow commands, denies any fevers, no chills, no cough no headache, blurry vision, neck pain, neck stiffness, denies any abdominal pain, no dysuria, is at bedside, left knee pain persist but improved, discussed trying anti-inflammatory medications and so far his Gram stain and body fluid cultures are within normal limits, discussed PT OT Vitals/I&O/Wt Last Vital Signs Temp 97.5 F L 04/25/25 15:31 Pulse 73 04/25/25 15:31 Resp 18 04/25/25 15:31 BP 118/64 04/25/25 15:31 Pulse Ox 96 04/25/25 15:31 O2 Del Method Room Air 04/25/25 15:31 04/25/25 04/25/25 04/25/25 06:59 14:59 22:59 Intake Total 180 / 180 Output Total 100 / 100 Balance -100 / 660 180 / 180 Weight last 48 hrs Weight 133.951 kg Weight 127.006 kg Physical Exam 2 Const: COMMON NORMALS: no acute distress and patient oriented x3 Resp: COMMON NORMALS: normal respiratory effort, No retractions, No use of accessory muscles and clear to auscultation bilaterally AUSCULTATION: clear to auscultation bilaterally Cardio: COMMON NORMALS: regular rate, regular rhythm, S1 normal heart sound present and S2 normal heart sound present RATE: regular rate RHYTHM: r egular rhythm HEART SOUNDS: S1 normal heart sound present and S2 normal heart sound present GI: COMMON NORMALS: Normal to inspection, nondistended, normoactive bowel sounds present and non-tender Extremity: COMMON NORMALS: no pedal edema NARRATIVE EXTREMITY EXAM: Left knee swelling significantly improved Neuro: COMMON NORMALS: patient oriented x3 Psych: COMMON NORMALS: mental status grossly normal Urinary Catheter Management: [place]: Cath Placed During This Visit: yes Reason for Continuing Indwelling Catheter: Acute Urinary Retention or Obstruction Urinary Catheter Date of Insertion: 04/24/25 Urinary Catheter Time of Insertion: 02:40 Data 04/25/25 04:27 04/25/25 04:27 Micro: Microbiology 04/24/25 02:10 Anaerobic Culture - Preliminary Knee - #1 04/24/25 06:40 Gram Stain - Final Synovial Fluid Body Fluid Culture - Preliminary 04/24/25 09:08 Blood Culture - Preliminary Blood NEGATIVE TO DATE 04/24/25 09:12 Blood Culture - Preliminary Blood NEGATIVE TO DATE A&P Assessment and plan 1. Primary osteoarthritis of left knee: 2. Effusion of left knee: 3. Urine retention: 4. Morbid obesity with body mass index (BMI) of 50.0 to 59.9 in adult: 5. Altered mental status: 6. Intractable pain: Plan: Acute encephalopathy - Potentially related to urinary retention -Related to polypharmacy, narcotics, morphine -Neurochecks, stroke scale, aspiration precautions - Ochoa catheter placed - UA within normal limits -Blood cultures ordered, no growth so far - Chest x-ray within normal limits - CT head within normal limits - Left knee status post arthrocentesis, pale yellow, turbid, 6245 white blood cells Urinary retention, Ocoha catheter placed Left knee pain, swelling, effusion - Status post arthrocentesis - Fluid is pale, yellow, turbid, 645 white blood cells - Gram stain and culture so far no growth - Likely inflammatory arthritis versus gout - Will do a trial of steroids, ibuprofen Type 2 diabetes mellitus, low dose insulin sliding scale PT OT full code heparin dvt prphylaxis PDMP PDMP Reviewed: Not Reviewed Attestations 2 Medical Necessity Statement*: Patient requires hospitalization for acute encephalopathy, urinary tension, left knee pain Diagnoses Primary osteoarthritis of left knee M17.12 Effusion of left knee M25.462 Urine retention R33.9 Morbid obesity with body mass index (BMI) of 50.0 to 59.9 in adult E66.01; Z68.43 Altered mental status R41.82 Intractable pain R52
[2025-04-26] MEDS: pantoprazole 40 mg SDV IVP (00:11)
[2025-04-26 03:46] VITALS: BP 123/67; PULSE 64; RESP 15; TEMP 36.5; O2SAT 95
[2025-04-26] MEDS: methylPREDNISolone sod succ 40 mg/mL INJ IVP ×2 (03:52→17:08)
[2025-04-26 04:23] LABS: Hematocrit 26.7 % (37-53); Hemoglobin 8.70 g/dL (11.27-16.99); Mean Corpuscular HGB Conc 32.6 g/dL (30-55); Mean Corpuscular Hemoglobin 29.2 pg (27-33); Mean Corpuscular Volume 89.6 fl (82-101); Nucleated Red Blood Cells % 0 %; Platelet Count 199 10^3/cmm (157-399); Red Blood Count 2.98 10^6/uL (3.85-5.65); White Blood Count 6.06 10^3/uL (3.29-11.43)
[2025-04-26 04:49] LABS: Anion Gap 19.6 (5-19); Blood Urea Nitrogen 43 mg/dL (8-23); Calcium 8.5 mg/dL (8.5-10.5); Carbon Dioxide 17 mmol/L (22-29); Chloride 101 mmol/L (98-107); Creatinine Clr Calc Pharmacy 34.4446; Glucose 297 mg/dL (65-115); Osmolality Calculated 298 mOsm/kg (285-295); Potassium 4.6 mmol/L (3.5-5.1); Sodium 133 mmol/L (136-145)
[2025-04-26] MEDS: heparin 5,000 unit/mL INJ 1 mL 5000 UNIT SUBCUT ×2 (05:48→17:09)
[2025-04-26 07:25] VITALS: BP 134/72; PULSE 64; RESP 18; TEMP 36.4; O2SAT 96
[2025-04-26] MEDS: insulin glargine 100 units/1 mL 10 UNIT SUBCUT (08:57)
[2025-04-26] MEDS: polyethylene glycol 3350 Pkt 17 gm PO (08:58)
--- NOTE | 2025-04-26 09:50 | PC.CHAP ---
Pastoral Care Encounter/Spiritual Assessment Type of Contact [] Declined trashman visit [] Patient/Family/Request visit [] Outpatient visit [] Follow-up visit [] Physician referral [] Code/Alert [x] Routine visit [] Staff referral [] Actively dying [] Patient sleeping [x] Family support [] [] Out of room [] Palliative care [] [] Receiving care in room [] Pre-surgical visit [] Trauma [] Long length of stay [] ICU visit [] Other: Relational/Emotional Strength [x] Patient feels connected with others/family/visitors/staff [] Distress [] Loneliness/isolation [] Abandonment Spirituality of Patient [x] Person of Bela [x] Attends Holiness of their Bela [x] Believes in Prayer [x] Reads Bible or Restoration materials [] There are Spiritual issues to be addressed Physicist [employer] Interventions [x] Prayer [x] Active listening [x] Non-anxious presence [x] Spiritual/emotional support [] Crisis/trauma care [] Spiritual counseling [] Bereavement support [] Provided bereavement packet [] Provided Bible/devotional materials [] Provided toy/stuffed animal, coloring book to patient or family member [] Provided Communion [] Anointing/[place] [] Salvation [x] Completed spiritual assessment [] Other: Impact on Illness or Injury [] Angry [] Fearful [] Anxious [] Often cries [] Exhaustion [] Unable to work [] Unable to attend yarsanism [] Unable to walk/stand [] Unable to read [] Unable to drive [] Unable to eat/drink [] Unable to sleep [] Unable to be with family [] Patient intubated [] Other: Summary Time spent with patient 10 min
--- NOTE | 2025-04-26 11:29 | P.PN_ITS ---
Subjective 2 Subjective: Was seen this morning, currently alert oriented x 3, following all commands, does report that the left knee swelling has significantly improved, pain has significantly improved, no headache, blurry vision, no diarrhea, no abdominal pain, Vitals/I&O/Wt Last Vital Signs Temp 97.6 F 04/26/25 07:25 Pulse 64 04/26/25 07:25 Resp 18 04/26/25 07:25 BP 134/72 04/26/25 07:25 Pulse Ox 96 04/26/25 07:25 O2 Del Method Room Air 04/26/25 07:25 04/25/25 04/26/25 04/26/25 22:59 06:59 14:59 Intake Total 120 / 300 360 / 360 Output Total 400 / 400 500 / 900 Balance -280 / -100 -500 / -600 360 / 360 Weight last 48 hrs Weight 130.294 kg Physical Exam 2 Const: COMMON NORMALS: no acute distress and patient oriented x3 Resp: COMMON NORMALS: normal respiratory effort, No retractions, No use of accessory muscles and clear to auscultation bilaterally AUSCULTATION: clear to auscultation bilaterally Cardio: COMMON NORMALS: regular rate, regular rhythm, S1 normal heart sound present and S2 normal heart sound present RATE: regular rate RHYTHM: r egular rhythm HEART SOUNDS: S1 normal heart sound present and S2 normal heart sound present GI: COMMON NORMALS: Normal to inspection, nondistended, normoactive bowel sounds present and non-tender Extremity: COMMON NORMALS: no calf tenderness and no pedal edema Neuro: COMMON NORMALS: patient oriented x3 Psych: COMMON NORMALS: mental status grossly normal Urinary Catheter Management: [place]: Cath Placed During This Visit: yes Reason for Continuing Indwelling Catheter: Acute Urinary Retention or Obstruction Urinary Catheter Date of Insertion: 04/24/25 Urinary Catheter Time of Insertion: 02:40 Data 04/26/25 03:33 04/26/25 03:33 Micro: Microbiology 04/24/25 02:10 Anaerobic Culture - Preliminary Knee - #1 04/24/25 06:40 Gram Stain - Final Synovial Fluid Body Fluid Culture - Preliminary 04/24/25 09:08 Blood Culture - Preliminary Blood NEGATIVE TO DATE 04/24/25 09:12 Blood Culture - Preliminary Blood NEGATIVE TO DATE A&P Assessment and plan 1. Primary osteoarthritis of left knee: 2. Effusion of left knee: 3. Urine retention: 4. Morbid obesity with body mass index (BMI) of 50.0 to 59.9 in adult: 5. Altered mental status: 6. Intractable pain: Plan: Acute encephalopathy - Potentially related to urinary retention -Related to polypharmacy, narcotics, morphine -Neurochecks, stroke scale, aspiration precautions - Ochoa catheter placed - UA within normal limits -Blood cultures ordered, no growth so far - Chest x-ray within normal limits - CT head within normal limits - Left knee status post arthrocentesis, pale yellow, turbid, 6245 white blood cells, no growth so far Urinary retention, Ochoa catheter placed Left knee pain, swelling, effusion - Status post arthrocentesis - Fluid is pale, yellow, turbid, 645 white blood cells - Gram stain and culture so far no growth - Likely inflammatory arthritis versus gout - Continue IV steroids, ibuprofen Type 2 diabetes mellitus, low dose insulin sliding scale, Lantus 10 units daily PT OT full code heparin dvt prphylaxis PDMP PDMP Reviewed: Not Reviewed Attestations 2 Medical Necessity Statement*: Patient requires hospitalization for left knee pain, swelling, inflammatory arthritis Diagnoses Primary osteoarthritis of left knee M17.12 Effusion of left knee M25.462 Urine retention R33.9 Morbid obesity with body mass index (BMI) of 50.0 to 59.9 in adult E66.01; Z68.43 Altered mental status R41.82 Intractable pain R52
[2025-04-26 11:35] VITALS: BP 141/65; PULSE 64; RESP 18; TEMP 36.6; O2SAT 97
--- NOTE | 2025-04-26 13:43 | PM.PN ---
Subjective Subjective: Patient was seen in his room. He is doing better and was up to the chair. He is able to straight leg raise. He notes the leg is less red than it has been, and he has been able to walk. Medications: Reviewed: Yes Vitals/I&O/Wt Last Vital Signs Temp 97.8 F 04/26/25 11:35 Pulse 64 04/26/25 11:35 Resp 18 04/26/25 11:35 BP 141/65 04/26/25 11:35 Pulse Ox 97 04/26/25 11:35 O2 Del Method Room Air 04/26/25 11:35 04/25/25 04/26/25 04/26/25 22:59 06:59 14:59 Intake Total 120 / 300 840 / 840 Output Total 400 / 400 500 / 900 Balance -280 / -100 -500 / -600 840 / 840 Weight last 48 hrs Weight 287 lb 4 oz Physical Exam Const: COMMON NORMALS: no acute distress, patient oriented x3 and alert GENERAL APPEARANCE: cooperative and comfortable NUTRITIONAL APPEARANCE: obese ORIENTATION/CONSCIOUSNESS: Yes awake HENMT: COMMON NORMALS: normocephalic and atraumatic HEAD & SCALP: normocephalic and atraumatic Eye: GENERAL EYE: appearance normal, both eyes and all related structures Chest: COMMONS NORMALS: normal inspection of the chest Resp: COMMON NORMALS: normal respiratory effort EFFORT & INSPECTION: Yes able to speak in complete sentences and Yes symmetric chest movement Extremity: LEFT LOWER EXTREMITY: Yes knee joint (There is no erythema about the knee) Left knee: Yes inspection (Minimal swelling), Yes palpation (Some tenderness along the joint line), Yes ROM (10 to 60 degrees) and Yes neurovascular exam (Intact distally) Neuro: COMMON NORMALS: patient oriented x3 SENSORIUM/ORIENTATION: Yes alert Psych: COMMON NORMALS: mental status grossly normal APPEARANCE: Yes grossly normal ATTITUDE: Yes calm and Yes engaged ATTENTION/CONCENTRATION: Yes attention grossly intact Skin: COMMON NORMALS: no rashes or lesions noted GENERAL SKIN EXAM: no rashes or lesions noted Urinary Catheter Management: [place]: Cath Placed During This Visit: yes Reason for Continuing Indwelling Catheter: Acute Urinary Retention or Obstruction Urinary Catheter Date of Insertion: 04/24/25 Urinary Catheter Time of Insertion: 02:40 Data 04/27/25 04:39 04/27/25 04:39 Micro: Microbiology 04/24/25 06:40 Gram Stain - Final Synovial Fluid Body Fluid Culture - Preliminary 04/24/25 02:10 Anaerobic Culture - Preliminary Knee - #1 04/24/25 09:08 Blood Culture - Preliminary Blood NEGATIVE TO DATE 04/24/25 09:12 Blood Culture - Preliminary Blood NEGATIVE TO DATE A&P Assessment and plan 1. Synovitis of left knee: Patient has had multiple knee injections secondary to his severe degenerative osteoarthritis of the bilateral knees. Most recently, he had inflammation following an injection of his left knee. He was seen in the emergency department and was discharged from there. He then went to [place] and walked a lot as unfortunately, his daughter had passed and he was there for those family issues. When he returned, he had difficulty walking and was taken to the emergency department again. He had a mental status change at that time and was admitted under the medical service. Knee aspiration was accomplished in the emergency department. White cell count was approximately 6200, and not consistent with infection but rather acute inflammation. Pathology has been reviewed. There are no crystals. There were no organisms seen on pathology or Gram stain. As he is improving, plans are made for his discharge to home. He will follow-up in the office for his appropriate appointment to discuss knee replacement and weight. 2. Effusion of left knee: 3. Primary osteoarthritis of knees, bilateral: 4. Morbid obesity with BMI of 40.0-44.9, adult: PDMP PDMP Reviewed: Not Reviewed Attestations Medical Necessity Statement*: Per hospitalist team Coding Level of Care Code Acute Code for [facility] Diagnoses Synovitis of left knee M65.962 Effusion of left knee M25.462 Primary osteoarthritis of knees, bilateral M17.0 Morbid obesity with BMI of 40.0-44.9, adult E66.01; Z68.41
[2025-04-26 16:00] VITALS: BP 125/68; PULSE 61; RESP 18; TEMP 36.5; O2SAT 96
[2025-04-26 20:00] VITALS: BP 134/66; PULSE 73; RESP 17; TEMP 36.4; O2SAT 97
[2025-04-27] VITALS: BP 151/67; PULSE 74; RESP 16; TEMP 36.4; O2SAT 97
[2025-04-27 04:00] VITALS: BP 133/68; PULSE 71; RESP 16; TEMP 36.4; O2SAT 97
[2025-04-27] MEDS: methylPREDNISolone sod succ 40 mg/mL INJ IVP (05:08)
[2025-04-27 05:09] LABS: Hematocrit 26.2 % (37-53); Hemoglobin 8.40 g/dL (11.27-16.99); Mean Corpuscular HGB Conc 32.1 g/dL (30-55); Mean Corpuscular Hemoglobin 28.2 pg (27-33); Mean Corpuscular Volume 87.9 fl (82-101); Nucleated Red Blood Cells % 0 %; Platelet Count 238 10^3/cmm (157-399); Red Blood Count 2.98 10^6/uL (3.85-5.65); White Blood Count 11.87 10^3/uL (3.29-11.43)
[2025-04-27 05:29] LABS: Anion Gap 17.8 (5-19); Blood Urea Nitrogen 51 mg/dL (8-23); Calcium 8.1 mg/dL (8.5-10.5); Carbon Dioxide 18 mmol/L (22-29); Chloride 104 mmol/L (98-107); Creatinine Clr Calc Pharmacy 33.9197; Glucose 170 mg/dL (65-115); Osmolality Calculated 298 mOsm/kg (285-295); Potassium 4.8 mmol/L (3.5-5.1); Sodium 135 mmol/L (136-145)
[2025-04-27] MEDS: heparin 5,000 unit/mL INJ 1 mL 5000 UNIT SUBCUT (06:30)
[2025-04-27 07:41] VITALS: BP 148/73; PULSE 66; RESP 17; TEMP 36.5; O2SAT 96
[2025-04-27 08:53] LABS: Ferritin 556 ng/mL (30-400); Iron 45 ug/dL (59-158); Total Iron Binding Capacity 139 mcg/dl; Unsaturated Iron Binding 94 ug/dL (112-347)
[2025-04-27] MEDS: insulin glargine 100 units/1 mL 10 UNIT SUBCUT (09:17)
[2025-04-27] MEDS: polyethylene glycol 3350 Pkt 17 gm PO (09:20)
--- NOTE | 2025-04-27 11:25 | P.DS_ITS ---
Discharge Providers Date of Admission: 04/25/25 11:18 Date of Discharge: April 27, 2025 Attending Provider at Admission: Adi Mccarthy MD Attending Provider at Discharge: Jeovany Grant MD Diagnoses at Discharge Discharge Diagnosis 1. Synovitis of left knee: 2. Effusion of left knee: 3. Primary osteoarthritis of knees, bilateral: 4. Morbid obesity with BMI of 40.0-44.9, adult: Reason for Visit Reason for Visit: KNEE PAIN Hospital Course Hospital Course This is a 79-year-old male with a past medical history of chronic left knee pain, osteoarthritis of left knee type 2 diabetes, hypertension, hyperlipidemia, who presents [facility] left knee pain, altered mental status Patient was admitted to [facility] for acute encephalopathy, likely multifactorial from urinary retention, polypharmacy from narcotics, - Overall mentation improved alert oriented x 3, following commands For urinary retention, Ochoa catheter placed, Ochoa catheter removed before discharge, discharged on Flomax, discharged with close follow-up with primary care provider For left knee swelling - Status post arthrocentesis - Fluid is pale, yellow, turbid, 645 white blood cells - Gram stain and culture so far no growth -Gram stain negative for crystals - Likely inflammatory arthritis - Will be discharged on a steroid taper Type 2 diabetes mellitus, discharged on insulin sliding scale Follow-up with primary care provider as outpatient Physical Exam Const: COMMON NORMALS: no acute distress and patient oriented x3 Resp: COMMON NORMALS: normal respiratory effort, No retractions, No use of accessory muscles and clear to auscultation bilaterally AUSCULTATION: clear to auscultation bilaterally Cardio: COMMON NORMALS: regular rate, regular rhythm, S1 normal heart sound present and S2 normal heart sound present RATE: regular rate RHYTHM: regular rhythm HEART SOUNDS: S1 normal heart sound present and S2 normal heart sound present GI: COMMON NORMALS: Normal to inspection, nondistended, normoactive bowel sounds present and non-tender Extremity: COMMON NORMALS: no pedal edema NARRATIVE EXTREMITY EXAM: Left knee erythema, swelling, tenderness resolved Neuro: COMMON NORMALS: patient oriented x3, CN's II-XII intact bilaterally and moves all extremities Psych: COMMON NORMALS: mental status grossly normal Urinary Catheter Management: Ochoa: Cath Placed During This Visit: yes, but has since been removed by the nurse Reason for Continuing Indwelling Catheter: Decision to DC Catheter Urinary Catheter Date of Insertion: 04/24/25 Urinary Catheter Time of Insertion: 02:40 Date Urinary Catheter Removed: 04/26/25 Time Urinary Catheter Discontinued: 13:30 Discharge Data Studies Completed and Pending Completed Studies During Hospitalization Category Date Time Status CT head wo con* 60360 Routine Cat Scan 04/24/25 15:[address] lumbar spine wo con* [id number] Stat Cat Scan 04/24/25 19:30 Completed XR chest 1V portable [id number] Routine Exams 04/24/25 08:43 [place] [id number] Routine Ultrasound 04/24/25 08:44 Completed Pending at discharge Category Date Time Status Anaerobic Culture Stat Lab 04/24/25 02:10 Results Basic Metabolic Panel AM LABS Lab 04/28/25 04:00 Ordered Blood Culture Stat Lab 04/24/25 09:12 Results Complete Blood Count w/Auto AM LABS Lab 04/28/25 04:00 Ordered Occult Blood Stool [Immunochemical Fecal OCB] Routine Lab 04/27/25 08:19 Uncollected Radiology Impressions Chest X-Ray 04/24/25 08:43 IMPRESSION: Possible trace right pleural fluid. No airspace disease. Head CT 04/24/25 15:14 IMPRESSION: No acute intracranial abnormality. Lumbar Spine CT 04/24/25 19:30 IMPRESSION: 1. No acute fracture or compression deformity. 2. Multilevel degenerative changes, most prominent at L2-L3. 3. No subluxations. 4. L4-L5 posterior disc bulge. 5. Multilevel neural foraminal stenosis, better characterized on prior MRI from 03/15/2024. Repeat MRI lumbar spine without contrast can be obtained if clinically indicated. COMMENTS: Consistent with the [employer]'s Incidental Findings Committee white paper (J Am Flory Radiol 2018): Any incidental renal lesion less than 1 cm or classified as too small to characterize, or any incidental cystic renal lesion characterized as simple-appearing, is likely benign. No follow-up imaging is recommended for these lesions per consensus recommendations based on imaging criteria. Laboratory Results WBC 11.87 10^3/uL (3.29-11.43) H 04/27/25 04:39 RBC 2.98 10^6/uL (3.85-5.65) L 04/27/25 04:39 Hgb 8.40 g/dL (11.27-16.99) L 04/27/25 04:39 Hct 26.2 % (37-53) L 04/27/25 04:39 MCV 87.9 fl (82-101) 04/27/25 04:39 MCH 28.2 pg (27-33) 04/27/25 04:39 MCHC 32.1 g/dL (30-55) 04/27/25 04:39 RDW 12.9 % (12.1-15.1) 04/27/25 04:39 Plt Count 238 10^3/cmm (157-399) 04/27/25 04:39 MPV 9.4 fL (7.4-10.4) 04/27/25 04:39 Neut % (Auto) 88.0 % 04/27/25 04:39 Lymph % (Auto) 6.7 % 04/27/25 04:39 [place] % (Auto) 4.6 % 04/27/25 04:39 Eos % (Auto) 0.0 % 04/27/25 04:39 Baso % (Auto) 0.1 % 04/27/25 04:39 Reticulocyte % (Auto) 1.8 % (0.5-2.0) 04/27/25 04:39 Neut # (Auto) 10.44 10^3/uL (1.8-7.7) H 04/27/25 04:39 Lymph # (Auto) 0.8 10^3/uL (0.8-4.8) 04/27/25 04:39 [place] # (Auto) 0.6 10^3/uL (0.2-0.9) 04/27/25 04:39 Eos # (Auto) 0.0 10^3/uL (0.0-0.8) 04/27/25 04:39 Baso # (Auto) 0.0 10^3/uL (0.0-0.1) 04/27/25 04:39 Nucleated RBC % (auto) 0 % 04/27/25 04:39 Nucleated RBCs # 0.0 /100WBC 04/27/25 04:39 ESR 39 mm/hr (0-10) H 04/24/25 01:54 Sodium 135 mmol/L (136-145) L 04/27/25 04:39 Potassium 4.8 mmol/L (3.5-5.1) 04/27/25 04:39 Chloride 104 mmol/L (98-107) 04/27/25 04:39 Carbon Dioxide 18 mmol/L (22-29) L 04/27/25 04:39 Anion Gap 17.8 (5-19) 04/27/25 04:39 BUN 51 mg/dL (8-23) H 04/27/25 04:39 Creatinine 2.4 mg/dL (0.7-1.2) H 04/27/25 04:39 GFR Calculation Not Reportable 04/27/25 04:39 Glucose 170 mg/dL (65-115) H 04/27/25 04:39 POC Glucose 175 mg/dL (70-110) H 04/27/25 11:01 Estimat Average Glucose 126 04/25/25 04:27 Hemoglobin A1c 6.0 % (4.0-6.0) 04/25/25 04:27 Calculated Osmolality 298 mOsm/kg (285-295) H 04/27/25 04:39 Uric Acid 6.9 mg/dL (3.4-7.0) 04/24/25 01:54 Calcium 8.1 mg/dL (8.5-10.5) L 04/27/25 04:39 Iron 45 ug/dL (59-158) L 04/27/25 04:39 TIBC 139 mcg/dl 04/27/25 04:39 % Saturation 32.3 % (20-50) 04/27/25 04:39 Unsat Iron Binding 94 ug/dL (112-347) L 04/27/25 04:39 Ferritin 556 ng/mL (30-400) H 04/27/25 04:39 Total Bilirubin 0.4 mg/dL (0.15-1.2) 04/24/25 01:54 AST 15 U/L (0-40) 04/24/25 01:54 ALT 14 U/L (0-41) 04/24/25 01:54 Alkaline Phosphatase 74 U/L (40-130) 04/24/25 01:54 C-Reactive Protein 333.0 mg/L (0.0-4.9) H 04/25/25 04:27 Total Protein 6.9 g/dL (6.6-8.7) 04/24/25 01:54 Albumin 3.1 g/dL (3.5-5.2) L 04/24/25 01:54 Globulin 3.8 g/dL (1.3-4.6) 04/24/25 01:54 Procalcitonin 0.31 ng/mL (0-0.5) 04/24/25 09:08 Urine Color Yellow (Yellow) 04/24/25 01:09 Urine Appearance Clear (CLEAR) 04/24/25 01:09 Urine pH 5.0 (5-7) 04/24/25 01:09 Ur Specific [place] 1.019 (1.005-1.030) 04/24/25 01:09 Urine Protein 1+ (Negative) A 04/24/25 01:09 Urine Glucose (UA) 1+ (Normal) H 04/24/25 01:09 Urine Ketones Negative (Negative) 04/24/25 01:09 Urine Blood Negative (Negative) 04/24/25 01:09 Urine Nitrate Negative (Negative) 04/24/25 01:09 Urine Bilirubin Negative (Negative) 04/24/25 01:09 Urine Urobilinogen 1.0 mg/dL (Negative) 04/24/25 01:09 Ur Leukocyte Esterase Negative (Negative) 04/24/25 01:09 Urine RBC 0-2 /hpf (0-2) 04/24/25 01:09 Urine WBC 0-5 /hpf (0-5) 04/24/25 01:09 Ur Squamous Epith Cells 0-5 /hpf (0-5) 04/24/25 01:09 Amorphous Sediment Not Reportable 04/24/25 01:09 Urine Bacteria None seen /hpf (NONE) 04/24/25 01:09 Hyaline Casts 9.51 /lpf 04/24/25 01:09 Fine Granular Casts 0-4 /lpf H 04/24/25 01:09 Coarse Granular Casts 0-4 /lpf H 04/24/25 01:09 Other Casts Epithelial /lpf 04/24/25 01:09 Urine Mucus Trace /hpf 04/24/25 01:09 Fld Tot Nucleated Cell Cancelled 04/24/25 02:10 Fluid Neutrophils % Cancelled 04/24/25 02:10 Fluid Lymphocytes % Cancelled 04/24/25 02:10 Fluid Eosinophils % Cancelled 04/24/25 02:10 Fluid Basophils % Cancelled 04/24/25 02:10 Fl Monocyt/Macrophag % Cancelled 04/24/25 02:10 Fld Mesothelial Cell % Cancelled 04/24/25 02:10 Fluid Crystals Sent 04/24/25 02:10 Fluid Crystal Appear Cancelled 04/24/25 02:10 Fluid Crystal Color Cancelled 04/24/25 02:10 Synovial Color Pale yellow (PALE YELLOW) 04/24/25 02:10 Synovial Appearance Turbid (CLEAR) 04/24/25 02:10 Synovial pH 7.0 (7.0-7.5) 04/24/25 02:10 Synovial WBC 6245 /uL (0-150) H 04/24/25 02:10 Synovial RBC 9 10^3/uL (0-0) H 04/24/25 02:10 Synovial Mononuclear 1.113 10^3/uL 04/24/25 02:10 Synov Polynuclear WBCs 5.132 10^3/uL 04/24/25 02:10 Synovial Other Cells Not Reportable 04/24/25 02:10 Synovial Polynuclear % 82.200 % 04/24/25 02:10 Synovial Mononuclear % 17.800 % 04/24/25 02:10 Synovial Glucose 40 mg/dL 04/24/25 02:10 Synovial LDH 2375.0 U/L 04/24/25 02:10 Clinical Comments Cancelled 04/24/25 02:10 Path Cons w/Slide Yes 04/24/25 02:10 Vitals Last Vital Signs Temp 97.7 F 04/27/25 07:41 Pulse 66 04/27/25 07:41 Resp 17 04/27/25 07:41 BP 148/73 04/27/25 07:41 Pulse Ox 96 04/27/25 07:41 O2 Del Method Room Air 04/26/25 16:00 Discharge Plan Discharge Patient Disposition: Home Condition: Stable Prescriptions: New sucralfate 1 gram Tablet 1 g PO BID 30 Days Qty: 60 0RF tamsulosin 0.4 mg Capsule 0.4 mg PO DAILY 30 Days Qty: 30 0RF docusate sodium 100 mg Capsule 100 mg PO BID@0500,1700 30 Days Qty: 60 0RF prednisone 10 mg tablet See Rx Instructions .ROUTE .COMPLEX Qty: 33 0RF Rx Instructions: 4 tabs(40mg) for 3 days, 3tabs(30mg) for 3 days, 2tabs(20mg) for 3 days, 1tab(10mg)for 3 days, 0.5tab(5mg) for 3 days insulin aspart U-100 [Novolog FlexPen U-100 Insulin] 100 unit/mL (3 mL) insulin pen See Rx Instructions .ROUTE .COMPLEX MDD 20 Qty: 15 0RF Rx Instructions: Inject subcut, 3 times daily, after meals, based on low-dose insulin scale pantoprazole [Protonix] 40 mg tablet,delayed release (DR/EC) 40 mg PO BID 30 Days Qty: 60 0RF Continued zinc acetate 50 mg (zinc) capsule 50 mg PO DAILY [id number]-deghr-oreg-capry 100 mg-150 mg- 50 mg-150 mg capsule 1 cap PO BID magnesium hydroxide [Milk of Magnesia] 400 mg/5 mL suspension 15 ml PO DAILY PRN (Reason: Indigestion) Jardiance 25 mg tablet 25 mg PO DAILY amlodipine 10 mg tablet 10 mg PO DAILY Qty: 90 3RF gabapentin 300 mg capsule 300 mg PO TID Qty: 90 0RF Patient Comments: Patient takes BID atorvastatin 80 mg Tablet 80 mg PO QPM Qty: 0 carvedilol [Coreg] 25 mg Tablet 25 mg PO BID Qty: 0 Rx Instructions: must administer with a meal/food aspirin 81 mg Tablet 81 mg PO DAILY Qty: 0 multivit with min-folic acid 0.4 mg Tablet 1 tab PO DAILY Qty: 0 ascorbic acid (vitamin C) [Vitamin C] 500 mg Tablet 500 mg PO DAILY Qty: 0 cholecalciferol (vitamin D3) [Vitamin D3] 50 mcg (2,000 unit) Capsule 50 mcg PO DAILY hydrocodone-acetaminophen 5-325 mg tablet 1 tab PO Q6H PRN (Reason: pain) Qty: 20 0RF polyethylene glycol 3350 [Miralax] 17 gram/dose powder 17 g PO DAILY Qty: 510 0RF Rx Instructions: Take 1 scoop daily while taking pain medications. acetaminophen [Tylenol Arthritis] 650 mg Tablet Extended Release 650 mg PO Q12H PRN (Reason: knee pain) lisinopril 40 mg Tablet 20 mg PO DAILY omega 3-hum-tyq-fish oil 1,000 (120-180) mg Capsule 1 cap PO BID sodium bicarbonate 650 mg Tablet 650 mg PO BID semaglutide (weight loss) 1.7 mg/0.75 mL Pen Injector 1 mg SUBCUT Q7D Other Ambulatory Orders: DME: Jose Armando (Order) Location: None Selected Ordered By: Jeovany Grant Referrals: Tom Villa MD [Referring] Discharge Diet: Cardiac Discharge Activity: Resume usual activity Patient Instructions: Opioid Safety, Patient Portal & Ankit Instructions Activity Restrictions/Additional Instructions: -Please monitor your blood sugars closely -Monitor your blood sugars 3 times daily as after meals -Please record your blood sugars, and a blood sugar log -For your NovoLog -Please inject blood sugar after meals based on sliding scale provided -Do not inject insulin if you do not eat as hypoglycemia kills -This is a NovoLog sliding scale -Insulin sliding ?fingerstick? Insulin ?141-180?0 units/sq 181-220?2 units/sq ?221-260?4 units/sq ?261-300 6 units/sq ?301-350?8 units/sq ?351-400 10 units/sq ?401-450?12 units/sq >450? 14units/sq -If your blood sugar is greater than 500 go to the emergency room -If your blood sugar is less than 60 or at anytime you feel lightheaded or dizzy or diaphoretic or have chest palpitations check your blood sugar, and eat a hard candy or drink orange juice and go immediately to the emergency room -Remember hypoglycemia kills, so if his blood sugar is less than 60 we have to increase it by taking in a sugary meal such as a hard candy or orange juice and go to the emergency room -If you have any questions please call us where here to help - Your hemoglobin discharge 8.4, monitor for blood or black stools if so go to emergency room - Please have primary care provider recheck your creatinine on discharge it is 2.4 - Please have your primary care provider recheck your hemoglobin, see 0.4 on discharge - Hemoglobin A1c is 6.0 - Please use narcotics sparingly, do not drive or operate heavy machinery or drink while taking medication Discharge Attestations Time Spent in Discharge Care*: greater than 30 min Quality Metrics Clinical Quality Measures [ No reported AMI, CVA or VTE this stay] Coding Level of Care Code 09488 Total time (in minutes) for Discharge: 45 Diagnoses Synovitis of left knee M65.962 Effusion of left knee M25.462 Primary osteoarthritis of knees, bilateral M17.0 Morbid obesity with BMI of 40.0-44.9, adult E66.01; Z68.41
[2025-04-27 13:11] VITALS: BP 150/71; PULSE 74; RESP 19; TEMP 36.4; O2SAT 96
[2025-04-27 15:38] VITALS: BP 150/71; PULSE 74; RESP 19; TEMP 36.4; O2SAT 97
== END 2025-04-27 15:39 | disposition intermediate care facility (04) | DRG 565 ==
LOC: ER 05:57 → MEDSURG 08:25
PROVIDERS: Admitting Provider Internal Medicine; Emergency Provider Student in an Organized Health Care Education/Training Program; Visit Provider Family Medicine
DX: M25.462 Effusion, left knee (principal); G93.40 Encephalopathy, unspecified; Z68.41 Body mass index [BMI] 40.0-44.9, adult; M17.0 Bilateral primary osteoarthritis of knee; M65.98 Unspecified synovitis and tenosynovitis, other site; E66.01 Morbid (severe) obesity due to excess calories; E11.9 Type 2 diabetes mellitus without complications; I10 Essential (primary) hypertension; E78.5 Hyperlipidemia, unspecified; R33.9 Retention of urine, unspecified; I25.10 Atherosclerotic heart disease of native coronary artery without angina pectoris; Z95.5 Presence of coronary angioplasty implant and graft; Z90.5 Acquired absence of kidney; Z82.3 Family history of stroke; G47.33 Obstructive sleep apnea (adult) (pediatric); Z79.84 Long term (current) use of oral hypoglycemic drugs; Z79.85 Long-term (current) use of injectable non-insulin antidiabetic drugs
CPT/HCPCS: 36415; 36416; 51702; 51798; 70450; 71045; 72131; 80048; 80053; 80503; 81001; 82728; 82945; 82962; 83036; 83540; 83550; 83615; 83986; 84145; 84550; 85025; 85045; 85651; 86140; 87040; 87070; 87075; 87205; 89050; 93970; 96372; 96374; 97116; 97161; 97167; 97530; 97535; 99285; G0378; J1644; J1815; J2270; J2470; J2919; J9999

== ENCOUNTER 2025-06-13 10:03 | Outpatient (CLI) | payer OTHER, SELFPAY ==
--- NOTE | 2025-06-13 10:00 | USCV_ITS ---
BessTom diop Age: 79 Gender: M : 1945 Exam Date: 06/13/2025 10:28 Ordering Phys: Raven Garcia MD ([email or web address]) Technologist: EDDIE [place] [facility] [place]: Pre op BP: 146 / 82 HR: 54 Rhythm: Sinus Technical Quality: Adequate MEASUREMENTS (Male / Female) Normal Values 2D ECHO LV Diastolic Diameter PLAX 6.7 cm 4.2 - 5.9 / 3.9 - 5.3 cm IVS Diastolic Thickness 0.9 cm 0.6 - 1.0 / 0.6 - 0.9 cm IVS Systolic Thickness 1.0 cm LVPW Diastolic Thickness 1.0 cm 0.6 - 1.0 / 0.6 - 0.9 cm LVPW Systolic Thickness 1.0 cm LVOT Diameter 2.0 cm LV Ejection Fraction 2D Teich 22.1 % LV Ejection Fraction MOD 4C 45.8 % LV Ejection Fraction MOD 2C 52.4 % LV Ejection Fraction 2C AL 56.3 % LA Diameter 4.2 cm RA Systolic Volume 4C AL 61.6 ml RA Systolic Volume 4C MOD 57.3 ml LA Sys Volume AL 83.5 cm cubed LA Sys Volume Index AL 33.0 cm cubed/m squared Aorta at Sinotubular Diameter 2.5 cm M-MODE LA Ao Ratio MM 1.3 AV Cusp Separation MM 0.9 cm DOPPLER AV Peak Velocity 164.0 cm/s LVOT Peak Velocity 85.0 cm/s AV Area Cont Eq vti 1.9 cm squared AV Area Cont Eq pk 1.6 cm squared MV Peak Velocity 140.0 cm/s MV Area PHT 5.0 cm squared Mitral E to A Ratio 4.3 TR Peak Velocity 241.0 cm/s TR Peak Gradient 23.2 mmHg TV Peak E Velocity 91.0 cm/s PV Peak Velocity 93.0 cm/s FINDINGS Left Ventricle Mildly dilated left ventricle with ejection fraction of 52%. Hypokinetic basal inferior wall segment. Right Ventricle Possibly of normal size and ejection fraction Right Atrium Possibly of normal size Left Atrium Mildly increased left atrial size. IA Septum Appears to be intact Mitral Valve Mild mitral valve regurgitation. Aortic Valve Minimally thickened Tricuspid Valve No gross abnormalities noted Pulmonic Valve Pulmonic valve not well visualized. Pericardium No pericardial effusion. Aorta Normal aorta size at the level of the sinus of valsalva. IVC Inferior vena cava not visualized. CONCLUSIONS Mildly dilated left ventricle with an ejection fraction of 52%. Hypokinetic basal inferior wall segment. Mildly increased left atrial size. Mild mitral valve regurgitation. Minimally thickened aortic valve There is no pericardial effusion. Technically somewhat difficult study because of the poor ultrasonic window Dr Raven Garcia MD [facility] (Electronically Signed) Final Date: 13 June 2025 16:38 S
== END 2025-06-13 10:04 | disposition home or self-care (01) ==
LOC: RAD 10:07
PROVIDERS: PCP Family Medicine; Visit Provider Internal Medicine Cardiovascular Disease
DX: R06.09 Other forms of dyspnea (principal); I51.7 Cardiomegaly; I34.0 Nonrheumatic mitral (valve) insufficiency
CPT/HCPCS: 93306

== ENCOUNTER → 2025-06-19 10:58 | Outpatient (BNVA) | payer OTHER, SELFPAY | PROVIDERS: PCP Family Medicine; Visit Provider Internal Medicine Cardiovascular Disease | DX: I48.20 Chronic atrial fibrillation, unspecified (principal); Z79.82 Long term (current) use of aspirin; I25.10 Atherosclerotic heart disease of native coronary artery without angina pectoris; I10 Essential (primary) hypertension; E78.2 Mixed hyperlipidemia; Z98.61 Coronary angioplasty status; R07.9 Chest pain, unspecified | CPT/HCPCS: 93005; 99204 ==

== ENCOUNTER 2025-06-20 15:35 | Outpatient (CLI) | payer OTHER, SELFPAY ==
[2025-06-20 16:56] LABS: INR 0.98 (0.8-1.2); Prothrombin Time 13.60 SECONDS (12.1-14.9)
[2025-06-20 17:20] LABS: NT Pro B Type Natriuretic Pept 5223 pg/mL (0-450); Thyroid Stimulating Hormone 0.82 uIU/mL (0.27-4.20)
== END 2025-06-20 15:36 | disposition home or self-care (01) ==
LOC: LAB 15:38
PROVIDERS: PCP Family Medicine; Visit Provider Internal Medicine Cardiovascular Disease
DX: I48.91 Unspecified atrial fibrillation (principal); N18.9 Chronic kidney disease, unspecified; R06.02 Shortness of breath
CPT/HCPCS: 83880; 84443; 85610

== ENCOUNTER 2025-06-23 07:43 | Outpatient (CLI) | payer OTHER, SELFPAY ==
[2025-06-23 07:50] VITALS: BMI 41.0
--- NOTE | 2025-06-23 07:53 | ECG_ITS ---
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 Interpretive Statements Lung unchanged pre/post procedure; Intraprocedure shortess of breath; Symptoms resoled by discharge in PROCEDURE: At the baseline, the EKG revealed normal sinus rhythm with a poor R wave progression, first-degree AV block and some nonspecific IVCD. The baseline heart was 76 bpm with a blood pressue of 164/72 mm of Hg Lexiscan was infused over a period of 20 seconds. A total of 0.4 milligrams of Lexiscan was infused. The stress phase was continued for a total of 5 minutes. Heart rate at the end of the stress phase was 80 bpm with a blood pressure 158/64 mm of Hg. The EKG at the peak infusion revealed no significant changes. Sestamibi was injected 20 seconds after the Lexiscan infusion. Heart rate at the end of the recovery phase was 82 bpm with a blood pressure of 150/58 mm of Hg. CONCLUSION: 1. No significant EKG changes with the LexiScan infusion 2. No LexiScan induced chest pain or cardiac arrhythmia 3. Normal blood pressure and heart rate response 4. Sestamibi/sestamibi perfusion scan pending; see separate report. Electronically Signed On 06-23-2025 10:14:54 COMMODITY MANAGER by Raven Garcia M.D. [email or web address]
--- NOTE | 2025-06-23 07:53 | NMCV_ITS ---
NM neeraj perf SPECT r/s* [id number] Tom Bess Age: 79 Gender: M : 1945 Exam Date: 06/23/2025 08:29 Ordering Phys: Raven Garcia MD ([email or web address]) Technologist: JOYCE Esquivel Exam Location: [facility] Indications: CP STRESS TEST [facility] IMAGE PROTOCOL Rest/Stress 1 Lexiscan Day Radiopharmaceutical Dose (mCi) Administration Site Administered by Rest: Tc-99m 10.5 IV Tabitha Curiel, ASSISTANT PRODUCER Sestamibi Stress:Tc-99m 33 IV Tabitha Pastranae, ASSISTANT PRODUCER Sestamibi Rest: 23-Jun-2025 60 Discovery 630 Stress: 23-Jun-2025 30 Discovery 630 0.4mg Lexiscan. Supine position only as patient was unable to lay prone. SPECT RESULTS Technical Quality: Good Raw Data Analysis: Normal Image Corrections: No attenuation or motion correction applied Summed Stress Score: 6 Summed Rest Score: 5 Summed Difference Score: 2 PERFUSION FINDINGS Small to moderate area of moderately decreased tracer uptake involving the basal and mid inferior and apical lateral segments. Some reversibility was noted in the basal inferior region. FUNCTIONAL RESULTS (calculated via Gated SPECT) Stress Image LV EF (%): 56 Stress EDV (mL):164 TID: 1.01 Stress ESV (mL):72 FUNCTIONAL FINDINGS: Segmental wall motion analysis revealing no gross wall motion abnormalities IMPRESSIONS 1. Myocardial perfusion imaging revealing small moderate area of moderate decrease tracer uptake involving the basal and mid inferior and apical lateral segments with some reversibility in the basal inferior region suggesting myocardial scarring in the distribution of the right coronary artery with a small area of possible timo-infarction ischemia. 2. Normal LV ejection fraction of 56%. 3. LV wall motion analysis revealing no gross wall motion abnormalities. 4. Mildly dilated LV cavity with an end-systolic volume of 72 ml. No similar previous studies are available for comparison Dr Raven Garcia MD [facility] (Electronically Signed) Final Date: 23 June 2025 10:05 S
[2025-06-23 09:15] VITALS: BP 159/61; PULSE 83
== END 2025-06-23 07:44 | disposition home or self-care (01) ==
LOC: CDL 07:46
PROVIDERS: PCP Family Medicine; Visit Provider Internal Medicine Cardiovascular Disease
DX: R07.9 Chest pain, unspecified (principal); I51.7 Cardiomegaly; I51.89 Other ill-defined heart diseases
CPT/HCPCS: 36415; 78452; 93017; 96374; 99204; A9500; J2785

== ENCOUNTER → 2025-07-18 13:41 | Outpatient (BNVA) | payer OTHER, SELFPAY | PROVIDERS: PCP Family Medicine; Visit Provider Family Medicine | DX: N18.32 Chronic kidney disease, stage 3b (principal); E11.22 Type 2 diabetes mellitus with diabetic chronic kidney disease; I13.10 Hypertensive heart and chronic kidney disease without heart failure, with stage 1 through stage 4 chronic kidney disease, or unspecified chronic kidney disease; D63.1 Anemia in chronic kidney disease | CPT/HCPCS: 85025 ==